=== PATIENT | female | born 1970 | race Two or more races ===

== ENCOUNTER 2020-05-18 10:16 | Outpatient (REF) | payer OTHER, SELFPAY ==
--- NOTE | 2020-05-18 | MM_ITS ---
EXAMINATION: MM SCREENING DIGITAL BREAST TOMOSYNTHESIS, BILATERAL CLINICAL INFORMATION: Screening. Asymptomatic. The lifetime risk of breast cancer based on the Tyrer-Cuzick Model is 6%. COMPARISON: Mammography: 03/13/2019, 03/12/2018, 04/29/2017 TECHNIQUE: Digital breast tomosynthesis is performed in both the craniocaudal and mediolateral oblique views along with computer-aided detection (CAD). Synthesized 2D images are generated from the tomosynthesis. Additional bilateral exaggerated CC views are provided. FINDINGS: There are scattered areas of fibroglandular density (ACR BI-RADS breast composition Category b). There are no significant masses, abnormal calcifications, or other abnormalities. No significant changes from prior studies. MM/MM tomosynthesis screening BI IMPRESSION: No mammographic evidence of malignancy. ASSESSMENT: BI-RADS 1: Negative RECOMMENDATION: Routine annual mammography screening. This patient's information was entered into a reminder system with a target due date for their next mammogram.
== END 2020-05-18 10:17 | disposition home or self-care (01) ==
LOC: HO.MAMMO 10:16
PROVIDERS: PCP Internal Medicine; Visit Provider Internal Medicine
DX: Z12.31 Encounter for screening mammogram for malignant neoplasm of breast (principal)
CPT/HCPCS: 77063; 77067

== ENCOUNTER 2020-06-24 08:36 | Outpatient (REF) | payer OTHER, SELFPAY ==
[2020-06-25 11:28] LABS: BV Int Neg Control Negative (Negative); BV Int Pos Control Positive (Positive)
[2020-06-25 11:42] LABS: C. trachomatis RNA TMA NOT DETECTED (NOT DETECTED); N. gonorrhoeae RNA TMA NOT DETECTED (NOT DETECTED)
== END 2020-06-24 08:37 | disposition home or self-care (01) ==
LOC: HO.LAB 08:36
PROVIDERS: PCP Internal Medicine; Visit Provider Obstetrics & Gynecology
DX: Z01.419 Encounter for gynecological examination (general) (routine) without abnormal findings (principal); N76.0 Acute vaginitis; B96.89 Other specified bacterial agents as the cause of diseases classified elsewhere
CPT/HCPCS: 87480; 87491; 87510; 87591; 87660

== ENCOUNTER 2020-07-05 10:41 | Outpatient (REF) | payer OTHER, SELFPAY ==
--- NOTE | ~2020-07-05 | US_ITS ---
EXAMINATION: US PELVIS ULTRASOUND CLINICAL INFORMATION: R10.2 - Pelvic and perineal pain. Right lower quadrant pain. History fibroid. Age 49. LMP 06/15/2020. COMPARISON: Pelvic ultrasound 09/10/2018 TECHNIQUE: Ultrasound of the pelvis is performed using both transabdominal and transvaginal transducers along with Doppler. Transvaginal imaging is performed due to inadequate visualization transabdominally. FINDINGS: Uterus: The uterus is retroverted and retroflexed and measures 10.0 x 7.5 x 8.4 cm. Volume 331. The double wall endometrial thickness is normal at 8 mm. There is an exophytic intramural subserous fibroid posterior uterus measuring 5.0 x 4.9 x 3.8 cm. This is increased in size from prior study measurements 3.5 x 3.2 x 3.2 cm. There is no new fibroid. Adnexa: Right ovary measures 3.1 x 2.0 x 2.9 cm. Volume 9.4 mL. There is a dominant follicle within the right ovary measuring 2.2 x 1.7 x 1.5 cm. The left ovary is not visualized. There is no pelvic ascites. US/US pelvic complete IMPRESSION: 1. Uterus: Posterior fibroid 5.0 cm, increased from prior measurement 3.5 cm (09/10/2018). 2. Adnexa: Left ovary not visualized. Unremarkable right ovary. No pelvic ascites.
--- NOTE | ~2020-07-05 | US_ITS ---
EXAMINATION: US PELVIS ULTRASOUND CLINICAL INFORMATION: R10.2 - Pelvic and perineal pain. Right lower quadrant pain. History fibroid. Age 49. LMP 06/15/2020. COMPARISON: Pelvic ultrasound 09/10/2018 TECHNIQUE: Ultrasound of the pelvis is performed using both transabdominal and transvaginal transducers along with Doppler. Transvaginal imaging is performed due to inadequate visualization transabdominally. FINDINGS: Uterus: The uterus is retroverted and retroflexed and measures 10.0 x 7.5 x 8.4 cm. Volume 331. The double wall endometrial thickness is normal at 8 mm. There is an exophytic intramural subserous fibroid posterior uterus measuring 5.0 x 4.9 x 3.8 cm. This is increased in size from prior study measurements 3.5 x 3.2 x 3.2 cm. There is no new fibroid. Adnexa: Right ovary measures 3.1 x 2.0 x 2.9 cm. Volume 9.4 mL. There is a dominant follicle within the right ovary measuring 2.2 x 1.7 x 1.5 cm. The left ovary is not visualized. There is no pelvic ascites. US/US transvaginal IMPRESSION: 1. Uterus: Posterior fibroid 5.0 cm, increased from prior measurement 3.5 cm (09/10/2018). 2. Adnexa: Left ovary not visualized. Unremarkable right ovary. No pelvic ascites.
== END 2020-07-05 10:42 | disposition home or self-care (01) ==
LOC: HO.US 10:41
PROVIDERS: PCP Internal Medicine; Visit Provider Obstetrics & Gynecology
DX: R10.2 Pelvic and perineal pain (principal)
CPT/HCPCS: 76830; 76856

== ENCOUNTER → 2020-07-08 11:31 | Outpatient (BNVA) | payer OTHER, SELFPAY | PROVIDERS: PCP Internal Medicine; Visit Provider Obstetrics & Gynecology ==

== ENCOUNTER → 2020-08-22 13:16 | Outpatient (BNVA) | payer OTHER, SELFPAY | PROVIDERS: PCP Internal Medicine; Visit Provider Nurse Practitioner Family ==

== ENCOUNTER → 2020-09-06 14:37 | Outpatient (BNVA) | payer OTHER, SELFPAY | PROVIDERS: PCP Internal Medicine; Visit Provider Nurse Practitioner Family ==

== ENCOUNTER 2020-10-28 08:03 | Outpatient (REF) | payer OTHER, SELFPAY ==
[2020-10-28 10:07] LABS: Hemoglobin 12.2 g/dl (12.0-16.0); Mean Corpuscular HGB Conc 31.3 g/dl (31.0-35.0); Mean Corpuscular Hemoglobin 29.6 pg (27.0-33.0); Mean Corpuscular Volume 94.7 fL (80-98); Mean Platelet Volume 11.3 fL (9.4-12.3); Platelet Count 136 X10*3/uL (160-400); Red Blood Count 4.12 X10*6/uL (4.20-5.50); Red Cell Distribution Width 12.9 % (11.0-16.0); White Blood Count 6.3 X10*3/uL (4.8-10.8)
[2020-10-28 10:15] LABS: Alanine Aminotransferase 26 U/L (0-31); Albumin Level 4.4 g/dL (3.5-5.0); Alkaline Phosphatase 68 U/L (39-117); Anion Gap 12 (12-20); Aspartate Amino Transferase 26 U/L (5-31); Bilirubin Total 1.1 mg/dL (0.0-1.0); Blood Urea Nitrogen 18 mg/dL (9-16); Calcium 9.5 mg/dL (8.4-10.2); Carbon Dioxide 30 mmol/L (22-29); Chloride 104 mmol/L (96-108); Estimated Glomerular Filt Rate > 60; Glucose Random 84 mg/dL (60-115); Potassium 4.5 mmol/L (3.3-5.1); Sodium 141 mmol/L (135-145); Total Protein 7.3 g/dL (6.5-8.0)
[2020-10-28 10:29] LABS: TSH reflex Free T4 1.63 uIU/mL (0.32-4.0)
[2020-10-28 14:23] LABS: CT PCR NOT DETECTED (Not Detect.); NG PCR NOT DETECTED (Not Detect.)
== END 2020-10-28 08:04 | disposition home or self-care (01) ==
LOC: HO.LAB 08:03
PROVIDERS: Obstetrics & Gynecology; PCP Internal Medicine; Visit Provider Nurse Practitioner Family
DX: K59.00 Constipation, unspecified (principal); B37.3 Candidiasis of vulva and vagina; R14.0 Abdominal distension (gaseous); Z12.11 Encounter for screening for malignant neoplasm of colon
CPT/HCPCS: 36415; 80053; 84443; 85027; 87491; 87591

== ENCOUNTER 2021-05-09 11:52 | Day surgery (SDC) | payer OTHER, SELFPAY ==
--- NOTE | 2021-05-08 10:18 | HO.ANESPROP2 ---
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 Sexual orientation: Straight/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 Gender identity: Female Meds Allergies Allergy/AdvReac Type Severity Reaction Status Date / Time aspirin [Aspirin] Allergy Mild UPSET Verified 07/13/21 10:12 STOMACH, RASH Home Medications Medication Instructions Recorded Confirmed Last Taken Type atorvastatin 10 mg tablet 10 mg PO DAILY 06/24/20 Unknown History ibuprofen 600 mg tablet 600 mg PO TID 08/22/20 05/05/21 History simethicone 80 mg chewable tablet mg PO 10/28/20 Unknown History albuterol sulfate 90 mcg/actuation INHALATION 06/01/21 Unknown History aerosol inhaler mometasone-formoterol HFA 100 INHALATION 06/01/21 Unknown History mcg-5 mcg/actuation aerosol inhaler (Dulera) magnesium oxide 400 mg PO DAILY 07/13/21 Unknown History Exam Exam Date and Time: May 08, 2021 1018 Assessment and Plan Assessment Anesthesia Assessment: Chart Reviewed Documented by User: Mook Colon MD 08/30/21 16:33 [facility] Past Medical History Medical History Adopted Asthma History of ganglion cyst Functional capacity: independent ambulation Family History Family history of problems with anesthesia: No Surgical History Surgical History History of surgical removal of ganglion cyst Hx of colonoscopy History of Problems with Anesthesia: No Social History Social History Household Members: Children Alcohol intake: current Alcohol intake frequency: does not drink Patient Tobacco Use Status: Never used Tobacco Current occupational status: employed 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 Sexual orientation: Straight/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 Gender identity: Female Meds Allergies Allergy/AdvReac Type Severity Reaction Status Date / Time aspirin [Aspirin] Allergy Mild UPSET Verified 07/13/21 10:12 STOMACH, RASH Home Medications Medication Instructions Recorded Confirmed Last Taken Type atorvastatin 10 mg tablet 10 mg PO DAILY 06/24/20 Unknown History ibuprofen 600 mg tablet 600 mg PO TID 08/22/20 05/05/21 History simethicone 80 mg chewable tablet mg PO 10/28/20 Unknown History albuterol sulfate 90 mcg/actuation INHALATION 06/01/21 Unknown History aerosol inhaler mometasone-formoterol HFA 100 INHALATION 06/01/21 Unknown History mcg-5 mcg/actuation aerosol inhaler (Dulera) magnesium oxide 400 mg PO DAILY 07/13/21 Unknown History Exam Airway Mallampati Class: I TM Dist: >3cm Neck ROM: Limited Loose/Missing/Broken Teeth: Yes (Upper bridge , chipped front ) Heart: S1,S2 Lungs: b/l breath sounds Assessment and Plan Assessment Anesthesia Assessment: Anesthesia Plan Discussed Final Anesthetic Review Family History of Problems with Anesthesia: No History of Problems with Anesthesia: No NPO: Yes ASA Class: II Final Preanesthetic Review: Meds/Allgs Chart Reviewed, Consent Obtained/Reviewed and Anes Risks/Benef Reviewed Patient Risk: Intermediate Procedure Risk: Intermediate Anesthetic Plan Anesthetic Plan: MAC: Disposition: Standard PACU
[2021-05-09 12:05] VITALS: BMI 21.9
[2021-05-09 12:09] VITALS: BP 115/61; PULSE 91; RESP 16; TEMP 37.1; O2SAT 99
[2021-05-09] MEDS: Lactated Ringers 1,000 ML 100 ML IVCONT (12:27)
--- NOTE | 2021-05-09 12:47 | MHC.SHP ---
Pre-Procedural Eval Section A Date of Service: 05/09/21 Section B Chief Complaint: Screening Details of Present Illness: Colon cancer screening, constipation Relevant Family History (Specify if Yes): No Relevant Social History: None Present Medications: see Short Stay Collaborative assessment Medical History: Significant History (asthma) History of Previous Operations: Relevant previous surgery/procedure and date(s) (Hx of removal of ganglion cyst) Allergies: Allergies Allergy/AdvReac Type Severity Reaction Status Date / Time aspirin [Aspirin] Allergy Mild UPSET Verified 05/09/21 11:59 STOMACH, RASH Review of Systems Sugical H&P ROS: Negative: Constitution, Cardiovascular and Respiratory and Yes, Specify: Gastrointestinal (Chronic constipation) Exam Surgical H&P Exam: Normal: Heart, Normal: Lungs, Normal: Extremities and Normal: Abdomen Plan Diagnosis/Plan: Unchanged I have reviewed the history and physical and performed a pertinent physical examination on my patient. No changes have occurred unless specified.
--- NOTE | 2021-05-09 13:59 | P.BOP_ITS ---
Brief Operative Note Date of Service: 05/09/21 Pre-op diagnosis: Colon cancer screening, chronic constipation Post-op diagnosis: other (Colon polyps, diverticulosis, hemorrhoids) Procedure: COLONOSCOPY TILL CECUM WITH BIOPSIES Consent: Indications for the procedure and potential complications of bleeding, perforation, reaction to medications and missed diagnosis were discussed with the patient and informed consent was obtained. Instrument: Olympus PCF H 190 L variable stiffness pediatric colonoscope Monitoring: Vital signs and clinical assessment, intermittent blood pressure monitoring, continuous EKG monitoring, Pulse oximetry and Carbon Dioxide monitoring were done throughout the procedure. Colon withdrawl time was 25 minutes. Procedure: The patient was placed in the left lateral decubitis position and pre-procedure medications were administered. After a digital rectal examination of the ano-rectum, the video colonoscope was inserted into the rectum and advanced through the colon to the cecum. The colonoscope was slowly withdrawn in a retrograde panoramic fashion and the colon mucosa was carefully examined including a retroflexed view of the rectum. Findings and interventions are described below. Procedure Difficulty: Colon was long and tortuous and there was some loop formation. LLQ pressure was applied to intubate the cecum Findings: Terminal Ileum: Not evaluated Cecum: Normal Ascending Colon: Normal Transverse Colon: Two 7-8 mm sessile polyps removed with a cold bx. Descending Colon: Moderate diverticulosis Sigmoid Colon: Moderate diverticulosis Rectum: Normal Ano-rectum: Moderate internal hemorrhoids Colon preparation: Excellent Impression and Post Procedure Diagnosis: Colonoscopy Findings: Two small polyps removed Moderate diverticulosis seen in the left colon Moderate hemorrhoids on retroflexed exam. Plan: Await pathology results Patient has an appointment on 05/23/21 in the [facility] with Karina Carlson FNP-BC. Repeat Colonoscopy interval based on path results - in 5 years if polyps are adenomatous and 10 years if polyps are hyperplastic. Above findings were reviewed with the patient and colon polyps and diverticulosis handouts were given in the discharge area Surgeon: Bradley Bills MD Anesthesia: MAC (Kaur San CRNA) Was an Inspector Hairspring Truing used for this Procedure?: Yes Inspector Hairspring Truing: Joanna Jang Estimated blood loss (mL): 0 Pathology: other (A. transverse colon polyps (2)) Condition: stable Disposition: PACU
[2021-05-09 14:44] VITALS: BP 95/45; PULSE 73; RESP 12; TEMP 36.2; O2SAT 99
[2021-05-09 14:59] VITALS: BP 111/69; PULSE 72; RESP 18; TEMP 36.2; O2SAT 100
== END 2021-05-09 15:48 | disposition home or self-care (01) ==
PROVIDERS: PCP Internal Medicine; Visit Provider Internal Medicine Gastroenterology
PROC: 0DJD8ZZ Inspection of Lower Intestinal Tract, Via Natural or Artificial Opening Endoscopic (ICD-10-PCS; CPT 45378; principal; 2021-05-09 12:50)
DX: Z12.11 Encounter for screening for malignant neoplasm of colon (principal); K63.5 Polyp of colon; K57.30 Diverticulosis of large intestine without perforation or abscess without bleeding; K64.8 Other hemorrhoids; K59.09 Other constipation; J45.909 Unspecified asthma, uncomplicated; Z88.8 Allergy status to other drugs, medicaments and biological substances; Z79.899 Other long term (current) drug therapy
CPT/HCPCS: 45380; 88305; J2250

== ENCOUNTER 2021-06-01 15:36 | Outpatient (REF) | payer OTHER, SELFPAY ==
--- NOTE | ~2021-06-01 | XR_ITS ---
EXAMINATION: XR CHEST CLINICAL INFORMATION: Cough COMPARISON: September 2015 TECHNIQUE: 2 views of the chest were obtained. FINDINGS: No significant abnormality is noted involving the heart, lungs, mediastinum, bony thorax or soft tissues. XR/XR chest 2V IMPRESSION: Unremarkable examination.
== END 2021-06-01 15:37 | disposition home or self-care (01) ==
LOC: HO.HMGCX 15:36
PROVIDERS: Visit Provider Physician Assistant Medical
DX: R05.9 Cough, unspecified (principal)
CPT/HCPCS: 71046

== ENCOUNTER → 2021-07-05 15:57 | Outpatient (BNVA) | payer OTHER, SELFPAY | PROVIDERS: PCP Internal Medicine; Referring Provider Internal Medicine; Visit Provider Nurse Practitioner Family ==

== ENCOUNTER 2021-07-06 08:10 | Outpatient (REF) | payer OTHER, SELFPAY ==
[2021-07-06 08:48] LABS: Hematocrit 40.3 % (37.0-47.0); Mean Corpuscular HGB Conc 32.3 g/dl (31.0-35.0); Mean Corpuscular Volume 93.1 fL (80.0-98.0); Platelet Count 145 X10*3/uL (160-400); Red Blood Count 4.33 X10*6/uL (4.20-5.50); Red Cell Distribution Width 13.2 % (11.0-16.0); White Blood Count 5.5 X10*3/uL (4.8-10.8)
[2021-07-06 09:52] LABS: TSH reflex Free T4 1.67 uIU/mL (0.32-4.0)
[2021-07-11 11:51] LABS: Vitamin D 25-OH, D2 <4 ng/mL; Vitamin D 25-OH, D3 43 ng/mL; Vitamin D 25-OH, Total 43 ng/mL (30-100)
== END 2021-07-06 08:11 | disposition home or self-care (01) ==
LOC: HO.LAB 08:10
PROVIDERS: Visit Provider Nurse Practitioner Family
DX: E55.9 Vitamin D deficiency, unspecified (principal); Z12.11 Encounter for screening for malignant neoplasm of colon
CPT/HCPCS: 36415; 82306; 84443; 85027

== ENCOUNTER 2021-07-13 10:30 | Outpatient (REF) | payer OTHER, SELFPAY ==
[2021-07-19 21:07] LABS: HPV mRNA E6/E7 rflx Not Detected (Not Detected)
== END 2021-07-13 10:31 | disposition home or self-care (01) ==
LOC: HO.LAB 10:30
PROVIDERS: Visit Provider Advanced Practice Midwife
DX: Z01.419 Encounter for gynecological examination (general) (routine) without abnormal findings (principal); Z11.51 Encounter for screening for human papillomavirus (HPV)
CPT/HCPCS: 87624; 88142

== ENCOUNTER 2021-07-13 11:18 | Outpatient (REF) | payer OTHER, SELFPAY ==
--- NOTE | ~2021-07-13 | MM_ITS ---
EXAMINATION: MM SCREENING DIGITAL BREAST TOMOSYNTHESIS, BILATERAL CLINICAL INFORMATION: Screening. Asymptomatic. The lifetime risk of breast cancer based on the Tyrer-Cuzick Model is 7.9%. COMPARISON: Mammography: May 18, 2020 and studies dating back to May 03, 2014 TECHNIQUE: Digital breast tomosynthesis is performed in both the craniocaudal and mediolateral oblique views along with computer-aided detection (CAD). Synthesized 2D images are generated from the tomosynthesis. FINDINGS: There are scattered areas of fibroglandular density (ACR BI-RADS breast composition Category b). There are no significant masses, abnormal calcifications, or other abnormalities. MM/MM tomosynthesis screening BI IMPRESSION: There are no significant changes from prior study. ASSESSMENT: BI-RADS 1: Negative RECOMMENDATION: Routine annual mammography screening. This patient's information was entered into a reminder system with a target due date for their next mammogram.
== END 2021-07-13 11:19 | disposition home or self-care (01) ==
LOC: HO.MAMMO 11:18
PROVIDERS: PCP Internal Medicine; Visit Provider Internal Medicine
DX: Z12.31 Encounter for screening mammogram for malignant neoplasm of breast (principal)
CPT/HCPCS: 77063; 77067

== ENCOUNTER 2021-10-14 20:59 | Emergency (ER) | payer OTHER, SELFPAY ==
[2021-10-14 21:11] VITALS: BP 150/86; BP 152/87; PULSE 63; PULSE 78; RESP 16; TEMP 36.5; O2SAT 100; BMI 21.8
[2021-10-14 21:33] VITALS: BP 145/79; PULSE 77; RESP 16; TEMP 36.9; O2SAT 99
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
[2021-10-14] MEDS: Lidocaine 4 % Patch ADH..PATCH 1 PATCH TRANSDERMA (21:40)
[2021-10-14] MEDS: Ibuprofen 400 MG TABLET PO (21:40)
[2021-10-14] MEDS: Acetaminophen 325 MG TABLET 975 MG PO (21:41)
== END 2021-10-14 23:02 | disposition home or self-care (01) ==
LOC: HO.ED 22:02
PROVIDERS: Emergency Provider Student in an Organized Health Care Education/Training Program; PCP Internal Medicine
DX: S49.92XA Unspecified injury of left shoulder and upper arm, initial encounter (principal); V43.52XA Car driver injured in collision with other type car in traffic accident, initial encounter; Y93.9 Activity, unspecified; Y92.410 Unspecified street and highway as the place of occurrence of the external cause; Y99.9 Unspecified external cause status; Z79.899 Other long term (current) drug therapy
CPT/HCPCS: 99283; 99284

== ENCOUNTER → 2022-06-27 12:09 | Outpatient (BNVA) | payer OTHER, SELFPAY | PROVIDERS: PCP Internal Medicine; Visit Provider Nurse Practitioner Family | DX: Z13.89 Encounter for screening for other disorder (principal) ==

== ENCOUNTER 2022-07-05 06:37 | Day surgery (SDC) | payer OTHER, SELFPAY ==
--- NOTE | 2022-07-05 06:40 | PC.NURSE ---
called patient and left message pt no show
[2022-07-05 06:42] VITALS: PULSE 71; RESP 16; TEMP 36.3; O2SAT 98; BMI 22.1
--- NOTE | 2022-07-05 06:42 | PC.NURSE ---
pt called be here in 5 mins
[2022-07-05] MEDS: Lactated Ringers 1,000 ML 50 ML IVCONT (07:05)
--- NOTE | 2022-07-05 07:31 | MHC.SHP ---
Pre-Procedural Eval Section A Date of Service: 07/05/22 The History & Physical has been completed within 30 days and I have reviewed it.: Yes Section B Chief Complaint: Abd pain, N,V Details of Present Illness: Here for EGD. Pt also reports being told she has inflammation of the stomach based on a CT scan but I am not able to see this in the chart. Relevant Family History (Specify if Yes): No Present Medications: see Short Stay Collaborative assessment Medical History: No relevant PMH History of Previous Operations: No relevant previous surgery Allergies: Allergies Allergy/AdvReac Type Severity Reaction Status Date / Time aspirin [Aspirin] Allergy Mild UPSET Verified 06/27/22 12:14 STOMACH, RASH Review of Systems Review of Systems Comment: 10 point ROS negative except as above Exam Exam Comment: Gen appear: No acute distress HEENT: no icterus Chest: No overt resp distress Abd: soft, nontender, nondistended Psych: Stable affect, answering questions appropriately Neuro: A/Ox3 noted to move all extremities spontaneously Ext: no peripheral edema Plan Diagnosis/Plan: Unchanged I have reviewed the history and physical and performed a pertinent physical examination on my patient. No changes have occurred unless specified. Time Spent With Patient Time: Total time managing care of this patient today ____ minutes.
--- NOTE | 2022-07-05 07:54 | P.OP_ITS ---
Operative Note Operative Note Date of Service: 07/05/22 Narrative: Procedure: Esophagogastroduodenoscopy Endoscopist: Kathy Musa MD Indication: Abd pain, nausea, bloating Anesthesia Provider: Dr Corin Lauren Anesthesia Type: MAC ?? EGD Procedure:?? The procedure, indications, preparation and potential complications were reviewed with the patient, who indicated understanding and gave written informed consent to proceed. A physical exam was performed. The endoscope was introduced through the mouth, and advanced to the third part of duodenum. The mucosa was carefully examined on slow withdrawal of the endoscope. The patient tolerated the procedure well. There were no immediate complications.? ? EGD Findings:? * Esophagus:? Normal mucosa noted in the entire esophagus. The Z line was at 37 cm and noted to be irregular with columnar mucosa extending up to 36 cm. Cold forceps biopsies were taken from lower esophagus to r/o Montgomery's esophagus. Middle esophagus forceps biopsies were obtained to rule out eosinophilic esophagitis. * Stomach:? Multiple polyps were noted in the fundus and body. Larger few polyps measuring 8-10 mm were removed using cold snare, collected with rescue net and sent for histology. Random cold forceps gastric biopsies were taken to rule out H Pylori infection. * Duodenum:? Normal mucosa was noted in the whole of the examined duodenum. Biopsies were taken from duodenal bulb and second portion of the duodenum to rule out celiac sprue. ? EGD Impressions:? * Irregular Z line (biopsy) * Gastric polyps (biopsy) * Normal duodenum (biopsy) ?? Recommendations:?? * Follow biopsy results. Our office will call or send a letter with results within 7-10 days. * If H pylori +, patient will be prescribed eradication therapy followed by test of cure. * Avoid NSAIDs. Above has been reviewed with the patient. Relevant educational hand outs were provided at discharge. ?
[2022-07-05 08:03] VITALS: BP 123/67; PULSE 60; RESP 17; TEMP 36.1; O2SAT 99
[2022-07-05 08:18] VITALS: BP 134/75; PULSE 57; RESP 18; O2SAT 100
[2022-07-05 08:33] VITALS: BP 134/73; PULSE 71; RESP 18; TEMP 36.6; O2SAT 100
--- NOTE | 2022-07-05 08:46 | HO.ANESPROP2 ---
COUNT INCLUDES THE [facility] Active Problems Active Problems: All Active Problems (Updated 10/15/21 @ 00:02 by Nacho Barnhart) Encounter for annual routine gynecological examination (Acute) Pneumonia due to COVID-19 virus (Acute) Cough (Acute) Past Medical History Medical History Adopted Asthma History of ganglion cyst Family History Family history of problems with anesthesia: No Surgical History Surgical History History of surgical removal of ganglion cyst Hx of colonoscopy History of Problems with Anesthesia: No Social History Social History Household Members: Children Alcohol intake: never Patient Tobacco Use Status: Never used Tobacco Are you DNR?: No Advance Directives: No Advance Directives Information Provided: Yes Recently lost weight without trying: No Nutrition Risks: No Nutritional Risk Current occupational status: employed 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 Sexual orientation: Straight/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 Gender identity: Female Meds Allergies Allergy/AdvReac Type Severity Reaction Status Date / Time aspirin [Aspirin] Allergy Mild UPSET Verified 06/27/22 12:14 STOMACH, RASH Active Medications: Current Medications Lactated Ringer's (Lr) 1,000 mls @ 50 mls/hr IVCONT .Q20H MELY Last Infusion: 07/05/22 08:19 Dose: Infused Home Medications Medication Instructions Recorded Confirmed Last Taken Type atorvastatin 10 mg tablet 10 mg PO DAILY 06/24/20 07/02/22 History albuterol sulfate 90 mcg/actuation inhalation 06/01/21 06/20/22 History aerosol inhaler Exam Exam Date and Time: July 05, 2022 0846 Height,Weight and Vital Signs: Height 5 ft 4 in Weight 58.513 kg Last Vital Signs Temp 97.9 F 07/05/22 08:33 Pulse 71 07/05/22 08:33 Resp 18 07/05/22 08:33 BP 134/73 07/05/22 08:33 Pulse Ox 100 07/05/22 08:33 O2 Del Method 07/05/22 08:33 O2 Flow Rate 3 07/05/22 08:03 Airway Mallampati Class: II TM Dist: >3cm Neck ROM: Full Denture: Upper Partial: Upper Heart: rr Lungs: cta Assessment and Plan Final Anesthetic Review Family History of Problems with Anesthesia: No History of Problems with Anesthesia: No ASA Class: II Final Preanesthetic Review: No Changes in Pt Med Stat, Meds/Allgs Chart Reviewed, Consent Obtained/Reviewed and Anes Risks/Benef Reviewed Patient Risk: Low Procedure Risk: Low Anesthetic Plan Anesthetic Plan: MAC: Disposition: Standard PACU
[2022-07-05 08:48] VITALS: BP 134/73; PULSE 68; RESP 18; TEMP 36.6; O2SAT 100
--- NOTE | 2022-07-05 09:40 | P.CONAN_ITS ---
HPI - Anesthesia Eval Consult details Narrative: egd for abdominal pain PMFSH Active Problems Active Problems: All Active Problems (Updated 10/15/21 @ 00:02 by Nacho Barnhart) Encounter for annual routine gynecological examination (Acute) Pneumonia due to COVID-19 virus (Acute) Cough (Acute) Past Medical History Medical History Adopted Asthma History of ganglion cyst Family History Family history of problems with anesthesia: No Surgical History Surgical History History of surgical removal of ganglion cyst Hx of colonoscopy History of Problems with Anesthesia: No Social History Social History Household Members: Children Alcohol intake: never Patient Tobacco Use Status: Never used Tobacco Current occupational status: employed 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 Sexual orientation: Straight/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 Gender identity: Female Meds Allergies Allergy/AdvReac Type Severity Reaction Status Date / Time aspirin [Aspirin] Allergy Mild UPSET Verified 06/27/22 12:14 STOMACH, RASH Home Medications Medication Instructions Recorded Confirmed Last Taken Type atorvastatin 10 mg tablet 10 mg PO DAILY 06/24/20 07/02/22 History albuterol sulfate 90 mcg/actuation inhalation 06/01/21 06/20/22 History aerosol inhaler Exam Exam Date and Time: July 05, 2022 0940 Height,Weight and Vital Signs: Height 5 ft 4 in Weight 58.513 kg Last Vital Signs Temp 97.9 F 07/05/22 08:48 Pulse 68 07/05/22 08:48 Resp 18 07/05/22 08:48 BP 134/73 07/05/22 08:48 Pulse Ox 100 07/05/22 08:48 O2 Del Method 07/05/22 08:48 O2 Flow Rate 3 07/05/22 08:03 Assessment and Plan Final Anesthetic Review Family History of Problems with Anesthesia: No History of Problems with Anesthesia: No
== END 2022-07-05 09:16 | disposition home or self-care (01) ==
PROVIDERS: PCP Internal Medicine; Visit Provider Internal Medicine
PROC: 0DJ08ZZ Inspection of Upper Intestinal Tract, Via Natural or Artificial Opening Endoscopic (ICD-10-PCS; CPT 43235; principal; 2022-07-05 07:30)
DX: K29.50 Unspecified chronic gastritis without bleeding (principal); K31.7 Polyp of stomach and duodenum; K22.89 Other specified disease of esophagus; J45.909 Unspecified asthma, uncomplicated; Z79.899 Other long term (current) drug therapy; Z88.8 Allergy status to other drugs, medicaments and biological substances
CPT/HCPCS: 43251; 43239; 88305; 88342

== ENCOUNTER 2022-07-16 15:57 | Outpatient (REF) | payer OTHER, SELFPAY ==
--- NOTE | ~2022-07-16 | MM_ITS ---
EXAMINATION: MM SCREENING DIGITAL BREAST TOMOSYNTHESIS, BILATERAL CLINICAL INFORMATION: Screening. Asymptomatic. The lifetime risk of breast cancer based on the Tyrer-Cuzick Model is 6.6%. COMPARISON: Mammography: July 13, 2021 and studies dating back to June 03, 2015 TECHNIQUE: Digital breast tomosynthesis is performed in both the craniocaudal and mediolateral oblique views along with computer-aided detection (CAD). Synthesized 2D images are generated from the tomosynthesis. FINDINGS: There are scattered areas of fibroglandular density (ACR BI-RADS breast composition Category b). There are no significant masses, abnormal calcifications, or other abnormalities. MM/MM tomosynthesis screening BI IMPRESSION: No significant changes from prior exam. ASSESSMENT: BI-RADS 1: Negative RECOMMENDATION: Routine annual mammography screening. This patient's information was entered into a reminder system with a target due date for their next mammogram.
== END 2022-07-16 15:58 | disposition home or self-care (01) ==
LOC: HO.MAMMO 15:57
PROVIDERS: PCP Internal Medicine; Visit Provider Internal Medicine
DX: Z12.31 Encounter for screening mammogram for malignant neoplasm of breast (principal)
CPT/HCPCS: 77063; 77067

== ENCOUNTER → 2022-07-23 08:30 | Outpatient (BNVA) | payer OTHER, SELFPAY | PROVIDERS: PCP Internal Medicine; Visit Provider Nurse Practitioner Family | DX: Z13.89 Encounter for screening for other disorder (principal) ==

== ENCOUNTER 2022-07-25 08:17 | Outpatient (REF) | payer OTHER, SELFPAY ==
[2022-07-25 09:14] LABS: Alanine Aminotransferase 23 U/L (0-31); Albumin Level 4.4 g/dL (3.5-5.0); Alkaline Phosphatase 65 U/L (39-117); Aspartate Amino Transferase 24 U/L (5-31); Bilirubin Direct 0.4 mg/dL (0.0-0.5); Bilirubin Total 1.5 mg/dL (0.0-1.0); Lipase 105 U/L (8-78); Total Protein 7.2 g/dL (6.5-8.0)
[2022-07-25 09:39] LABS: Folate 9.9 ng/mL (> or = 4.0); TSH reflex Free T4 0.96 uIU/mL (0.32-4.0); Vitamin B12 1391 pg/mL (200-900)
[2022-07-30 12:20] LABS: Transglutaminase IgA <1.0 U/mL
[2022-08-01 23:23] LABS: Vitamin D 25-OH, D2 <4 ng/mL; Vitamin D 25-OH, D3 29 ng/mL; Vitamin D 25-OH, Total 29 ng/mL (30-100)
== END 2022-07-25 08:18 | disposition home or self-care (01) ==
LOC: HO.LAB 08:17
PROVIDERS: PCP Internal Medicine; Visit Provider Nurse Practitioner Family
DX: R10.9 Unspecified abdominal pain (principal); K59.00 Constipation, unspecified; E55.9 Vitamin D deficiency, unspecified; R19.7 Diarrhea, unspecified
CPT/HCPCS: 36415; 80076; 82306; 82607; 82746; 83690; 84443; 86364

== ENCOUNTER 2022-07-26 08:17 | Outpatient (REF) | payer OTHER, SELFPAY ==
[2022-08-05 21:18] LABS: Pancreatic Elastase-1 >500 mcg/g
== END 2022-07-26 08:18 | disposition home or self-care (01) ==
LOC: HO.LNP 08:17
PROVIDERS: Visit Provider Nurse Practitioner Family
DX: R10.9 Unspecified abdominal pain (principal); K21.9 Gastro-esophageal reflux disease without esophagitis
CPT/HCPCS: 82656; 87338

== ENCOUNTER 2022-08-13 09:34 | Outpatient (REF) | payer OTHER, SELFPAY ==
[2022-08-13 13:14] LABS: Syphilis Screen Nonreactive (Nonreactive)
[2022-08-13 14:04] LABS: CT PCR NOT DETECTED (Not Detect.); NG PCR NOT DETECTED (Not Detect.)
[2022-08-14 11:16] LABS: BV Int Neg Control Negative (Negative); BV Int Pos Control Positive (Positive)
[2022-08-15 04:37] LABS: HBc Num1 0.06 S/CO (0.00-0.79); HIV AB/AG Nonreactive (Nonreactive); HIV Num 1 0.07 S/CO (0.00-0.99); Hepatitis B Core Antibody Nonreactive (Nonreactive); ~HepC Num1 0.12 S/CO (0.00-0.79); ~Hepatitis C Antibody Nonreactive (Nonreactive)
== END 2022-08-13 09:35 | disposition home or self-care (01) ==
LOC: HO.LAB 09:34
PROVIDERS: PCP Internal Medicine; Visit Provider Advanced Practice Midwife
DX: Z01.419 Encounter for gynecological examination (general) (routine) without abnormal findings (principal); Z20.2 Contact with and (suspected) exposure to infections with a predominantly sexual mode of transmission; N90.89 Other specified noninflammatory disorders of vulva and perineum; R30.0 Dysuria; R23.2 Flushing
CPT/HCPCS: 0353U; 36415; 86704; 86780; 86803; 87389; 87480; 87510; 87660

== ENCOUNTER → 2022-08-24 13:57 | Outpatient (BNVA) | payer OTHER, SELFPAY | PROVIDERS: PCP Internal Medicine; Visit Provider Nurse Practitioner Family | DX: Z13.89 Encounter for screening for other disorder (principal) ==

== ENCOUNTER 2022-11-07 08:20 | Outpatient (REF) | payer OTHER, SELFPAY ==
[2022-11-07 10:14] LABS: Estimated Average Glucose 108 mg/dL; Hemoglobin A1c % 5.4 %
[2022-11-07 11:36] LABS: C Reactive Protein < 0.10 mg/dL (< or = 0.50); Gamma Glutamyl Transpeptidase 26 U/L (7-33); Lipase 43 U/L (8-78)
== END 2022-11-07 08:21 | disposition home or self-care (01) ==
LOC: HO.LAB 08:20
PROVIDERS: PCP Internal Medicine; Visit Provider Nurse Practitioner Family
DX: R10.11 Right upper quadrant pain (principal); K58.1 Irritable bowel syndrome with constipation; R74.8 Abnormal levels of other serum enzymes; E11.9 Type 2 diabetes mellitus without complications; K58.9 Irritable bowel syndrome, unspecified; K21.9 Gastro-esophageal reflux disease without esophagitis
CPT/HCPCS: 36415; 82977; 83036; 83690; 86140

== ENCOUNTER 2022-11-16 10:00 | Outpatient (REF) | payer OTHER, SELFPAY ==
--- NOTE | ~2022-11-16 | US_ITS ---
EXAMINATION: US ABDOMEN COMPLETE CLINICAL INFORMATION: Abdominal pain. COMPARISON: Previous CT of the abdomen and pelvis March 2014 TECHNIQUE: Real-time imaging of the abdominal viscera. FINDINGS: PANCREAS: Normal. ABDOMINAL AORTA: The proximal, mid, and distal segments are normal in caliber. INFERIOR VENA CAVA: Visualized portions are normal. LIVER: Normal. The liver is normal in size. The liver contour is normal. Parenchymal echogenicity is normal. No focal hepatic lesion. There is no intrahepatic biliary duct dilatation seen. GALLBLADDER: The gallbladder is normal in size. No gallstones. There is a small amount of sludge in the gallbladder. Gallbladder wall does not appear thickened. COMMON BILE DUCT: Normal in caliber measuring 0.4 cm in diameter. RIGHT KIDNEY: Normal. No hydronephrosis. No renal calculi or focal parenchymal lesions. The kidney measures 10.5 cm in maximum dimension. LEFT KIDNEY: Normal. No hydronephrosis. No renal calculi or focal parenchymal lesions. The kidney measures 10 cm in maximum dimension. SPLEEN: Normal. The spleen measures 10 cm in maximum dimension. FREE FLUID: None. US/US abdomen complete IMPRESSION: Unremarkable exam. Small amount of sludge in the gallbladder. No gallstone seen.
== END 2022-11-16 10:01 | disposition home or self-care (01) ==
LOC: HO.HMGCX 10:00
PROVIDERS: PCP Internal Medicine; Visit Provider Nurse Practitioner Family
DX: R10.9 Unspecified abdominal pain (principal)
CPT/HCPCS: 76700

== ENCOUNTER 2023-01-28 08:01 | Outpatient (AMB) | payer OTHER, SELFPAY ==
--- NOTE | 2023-01-28 08:14 | MHC.OFFVIS ---
Intake Vital Signs 01/28/23 08:15 Height 5 ft 4 in Weight 124 lb 5.451 oz BMI 21.3 BP 119/71 Blood Pressure Location Rt brachial Position Sitting Pulse 73 Pulse Source Pulse Oximeter Intake Visit Reasons: 6 month follow up Intake Note: Pt presents to the office today for a 6 month follow up. She states some days are better than others. She states that if she doesn't have a bowel movement everyday she gets pain and bloating. She states overall she thinks the medications are working. Allergies aspirin [Aspirin] Allergy (Mild, Verified 01/28/23 08:16) UPSET STOMACH, RASH HPI 6 month follow up HPI Details LAST VISIT GERD (gastroesophageal reflux disease) Continue pantoprazole every morning. Continue avoiding dietary triggers and late night snacking. IBS (irritable bowel syndrome) Continue Linzess. Patient was also encouraged to stay away food that could be triggering her symptoms. Low FODMAP diet Constipation Continue Linzess 145 mcg daily. Patient was also encouraged to drink plenty fluids and increase activity to promote bowel motility. Patient does report that she is walking daily and doing other forms of exercise staying active. Postprandial abdominal pain in right upper quadrant Occasional postprandial abdominal pain in the right upper quadrant and epigastric discomfort. It has history of pancreatitis in the past will repeat blood work today will also order abdominal ultrasound to rule out cholelithiasis, cholecystitis, biliary colic, pancreatitis. Will check CRP to rule out inflammatory processes. Patient has an appointment with me in January, she will call me sooner if she will have any GI concerning issues. Patient is agreeable to this plan and verbalizes understanding of instructions. She was given the opportunity to ask questions all questions answered. TODAY'S VISIT Patient is here today for follow-up. Patient reports that she is taking Linzess every day and reports to have good bowel movements, however occasionally she will be constipated. If no bowel movement for 1-2 days patient reports to have abdominal cramping. Patient feels abdominal fullness and gassy. Patient reports that she is following low FODMAP diet as much as she can. She admits to occasionally having food that could trigger her symptoms of abdominal cramping and bloating like chocolate donut or cheese. Patient tried to find lactose free she is. Overall patient states that she is avoiding lactose and as much as gluten as possible. Patient reports that she eats fish like salmon or tuna. For the most part patient states that she is feeling well. Lab results discussed with patient. Normal lipase. Patient had normal ultrasound except for mild slough seen in her gallbladder. 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 Sexual orientation: Straight/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 Gender identity: Female Review of Systems Const Denies weight gain and Denies weight loss ENT Reports no additional complaints, Denies dysphagia and Denies odynophagia Card Reports no additional complaints Resp Reports no additional complaints GI Denies abdominal pain, Denies belching, Denies melena, Denies bloating, Denies change in bowel habits, Denies dysphagia, Denies excessive flatus, Denies dyspepsia, Denies heartburn, Denies diarrhea, Denies loose stools, Denies nausea, Denies odynophagia and Denies vomiting Musc Reports no additional complaints Neuro Reports no additional complaints Psych Reports no additional complaints Endo Reports no additional complaints Physical Exam Vital Signs: BMI result Body Mass Index 21.3 Const General: healthy appearing, no acute distress and well developed Nutritional Appearance: well nourished Orientation/consciousness: patient oriented x3 HEENT Head: Yes normal to inspection, Yes normocephalic and Yes atraumatic Face and sinus: Yes normal facial exam Mouth: Normal oral and palatal mucosa present Throat: Yes posterior oropharynx normal, Yes tonsils normal and Yes uvula midline Eyes General: appearance normal, both eyes and all related structures Neck Neck: Yes normal visual inspection, Yes full ROM and Yes trachea midline Thyroid: Thyroid normal Resp Effort & Inspection: normal respiratory effort, able to speak in complete sentences, no tracheal deviation and symmetric chest movement Auscultation: clear to auscultation bilaterally Cardio Rate: regular rate Heart sounds: S1 normal heart sound present and S2 normal heart sound present GI Inspection: Yes normal to inspection and No distended Palpation (GI): Soft to palpation, not firm, nontender and No hepatosplenomegaly present Auscultation: normal bowel sounds General: Yes no CVA tenderness Back/Spine/Pelvis Back: no CVA tenderness Skin General skin exam: elasticity normal, turgor normal and dry skin Neuro General: patient oriented x3 Psych Appearance: grossly normal Mental Status: mental status grossly normal Speech and movement: Normal speech and movement present Assessment & Plan Assessment & Plan (1) GERD (gastroesophageal reflux disease): Code(s): K21.9 - Gastro-esophageal reflux disease without esophagitis Qualifiers: Esophagitis presence: without esophagitis Qualified Code(s): K21.9 - Gastro-esophageal reflux disease without esophagitis Plan: Continue the pantoprazole in the morning half an hour before breakfast. Patient can decrease sucralfate till 1 a day. Patient can take it at bedtime. Continue avoiding dietary triggers in late night snacking. Staying upright for minimum 3 hours after meals discussed with patient. (2) IBS (irritable bowel syndrome): Code(s): K58.9 - Irritable bowel syndrome without diarrhea Qualifiers: Irritable bowel syndrome type: with constipation Qualified Code(s): K58.1 - Irritable bowel syndrome with constipation Plan: Continue on all FODMAP diet. Lactose-free products like a lactose-free cheese. (3) Constipation: Code(s): K59.00 - Constipation, unspecified Qualifiers: Constipation type: chronic idiopathic constipation Qualified Code(s): K59.04 - Chronic idiopathic constipation Plan: Occasional constipation despite taking Linzess. Patient can increase Linzess to 290 mcg daily. Patient was also encouraged to increase fluid intake and activity to promote better bowel motility. (4) Postprandial abdominal pain in right upper quadrant: Code(s): R10.11 - Right upper quadrant pain Plan: Occasional postprandial right upper quadrant pain. Discussed with patient avoiding dietary triggers. Ultrasound showed slough in the gallbladder but no stones or no cholecystitis. If patient will continue with pain postprandially we will send her for HIDA scan. I will see her in 6 months, sooner on as needed basis. Patient is agreeable to this plan and verbalizes understanding of instructions. She was given the opportunity to ask questions all questions answered. Thank you for allowing me to participate in her care Medications: New linaclotide (Linzess) 290 mcg PO QAM 30 caps 4RF K59.00 - Constipation, unspecified Changed From sucralfate 1 g PO BID 60 tabs 1RF R19.7 - Diarrhea, unspecified To sucralfate 1 g PO BEDTIME 90 tabs 2RF R19.7 - Diarrhea, unspecified Discontinued linaclotide (Linzess) Discontinued Reason: Doctor's Order 145 mcg PO DAILY 30 caps 2RF Coding Level of Care Code Est Pt Level 4 (62411) Diagnoses Gastroesophageal reflux disease without esophagitis K21.9 Esophagitis presence: without esophagitis Irritable bowel syndrome with constipation K58.1 Irritable bowel syndrome type: with constipation Chronic idiopathic constipation K59.04 Constipation type: chronic idiopathic constipation Postprandial abdominal pain in right upper quadrant R10.11 Time Spent (min) 35 Comment 20 minutes spent with patient and additional 15 minutes spent reviewing her records
[2023-01-28 08:15] VITALS: BP 119/71; PULSE 73; BMI 21.3
== END 2023-01-28 08:45 | disposition home or self-care (01) ==
PROVIDERS: Visit Provider Nurse Practitioner Family
DX: K21.9 Gastro-esophageal reflux disease without esophagitis (principal); K58.1 Irritable bowel syndrome with constipation; K59.04 Chronic idiopathic constipation; R10.11 Right upper quadrant pain
CPT/HCPCS: 99214

== ENCOUNTER → 2023-01-28 08:01 | Outpatient (BNVA) | payer OTHER, SELFPAY | PROVIDERS: Visit Provider Nurse Practitioner Family ==

== ENCOUNTER → 2023-07-27 07:45 | Outpatient (BNV) | payer OTHER, SELFPAY | PROVIDERS: PCP Internal Medicine; Visit Provider Radiology Diagnostic Radiology | DX: Z12.31 Encounter for screening mammogram for malignant neoplasm of breast (principal) | CPT/HCPCS: 77063; 77067 ==

== ENCOUNTER 2023-07-27 07:49 | Outpatient (REF) | payer OTHER, SELFPAY | END 2023-07-27 07:50 | disposition home or self-care (01) | LOC: HO.MAMMO 07:49 | PROVIDERS: PCP Internal Medicine; Visit Provider Internal Medicine | DX: Z12.31 Encounter for screening mammogram for malignant neoplasm of breast (principal) | CPT/HCPCS: 77063; 77067 ==

== ENCOUNTER 2023-07-29 07:43 | Outpatient (AMB) | payer OTHER, SELFPAY ==
[2023-07-29 08:05] VITALS: BP 117/58; PULSE 75; BMI 22.7
--- NOTE | 2023-07-29 08:05 | A.OFFVIS_ITS ---
Intake Vital Signs 07/29/23 08:05 Height 5 ft 4 in Weight 132 lb 4.438 oz BMI 22.7 BP 117/58 L Blood Pressure Location Lt brachial Position Sitting Pulse 75 Pulse Source Pulse Oximeter Intake Visit Reasons: 6 month follow up Constipation Intake Note: Pt presents to the office today for a 6 month follow up for constipation. Pt states the medication is helping her constipation but she states she still will have constipation occasionally. She states she does have upper abdomen pain occasionally. Pt states she gets nauseous about 3x a week at random times. Pt denies any vomiting. Allergies aspirin [Aspirin] Allergy (Mild, Verified 07/29/23 08:07) UPSET STOMACH, RASH HPI 6 month follow up Constipation HPI Details LAST VISIT GERD (gastroesophageal reflux disease) Continue the pantoprazole in the morning half an hour before breakfast. Patient can decrease sucralfate till 1 a day. Patient can take it at bedtime. Continue avoiding dietary triggers in late night snacking. Staying upright for minimum 3 hours after meals discussed with patient. IBS (irritable bowel syndrome) Continue on all FODMAP diet. Lactose-free products like a lactose-free cheese. Constipation Occasional constipation despite taking Linzess. Patient can increase Linzess to 290 mcg daily. Patient was also encouraged to increase fluid intake and activity to promote better bowel motility. Postprandial abdominal pain in right upper quadrant Occasional postprandial right upper quadrant pain. Discussed with patient avoiding dietary triggers. Ultrasound showed slough in the gallbladder but no stones or no cholecystitis. If patient will continue with pain postprandially we will send her for HIDA scan. I will see her in 6 months, sooner on as needed basis. Patient is agreeable to this plan and verbalizes understanding of instructions. She was given the opportunity to ask questions all questions answered. ? Thank you for allowing me to participate in her care Plan Medications New linaclotide (Linzess) 290 mcg PO QAM 30 caps 4RF K59.00 Changed Changed From sucralfate 1 g PO BID 60 tabs 1RF R19.7 Changed To sucralfate 1 g PO BEDTIME 90 tabs 2RF R19.7 Discontinued linaclotide (Linzess) Discontinued Reason: Doctor's Order 145 mcg PO DAILY 30 caps 2RF TODAY'S VISIT: Patient is here today for follow-up. Patient reports that since last time I have seen her she has been feeling little better. Patient will have a periodically abdominal pain and bloating. Patient reports that she occasionally will feel nauseous. Patient states that she takes Linzess 290 mcg daily and she does not have a bowel movements every day. Patient reports that her bowels are like small and stringy. She has not been having normal movements. Patient denies melena, hematochezia, unintentional weight loss or ribbon like stools. Patient denies any dyspepsia, dysphagia or odynophagia. Patient is taking p antoprazole every day and her symptoms of acid reflux are suppressed for the most part. Patient feels like she is nauseous when she is constipated. 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 Sexual orientation: Straight/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 Gender identity: Female Review of Systems Const Denies weight gain and Denies weight loss ENT Reports no additional complaints, Denies dysphagia and Denies odynophagia Card Reports no additional complaints Resp Reports no additional complaints GI Reports abdominal pain, Denies belching, Denies melena, Reports bloating, Denies change in bowel habits, Reports constipation, Denies dysphagia, Denies excessive flatus, Denies dyspepsia, Denies heartburn, Denies diarrhea, Reports loose stools, Reports nausea, Denies odynophagia and Denies vomiting Reports no additional complaints Musc Reports no additional complaints Neuro Reports no additional complaints Psych Reports no additional complaints Endo Reports no additional complaints Physical Exam Vital Signs: Last Vital Signs Pulse 75 07/29/23 08:05 BP 117/58 L 07/29/23 08:05 BMI result Body Mass Index 22.7 Const General: healthy appearing, no acute distress and well developed Nutritional Appearance: well nourished Orientation/consciousness: patient oriented x3 Resp Effort & Inspection: normal respiratory effort, able to speak in complete sentences, no tracheal deviation and symmetric chest movement Auscultation: clear to auscultation bilaterally Cardio Rate: regular rate GI Inspection: Yes normal to inspection and No distended Palpation (GI): Soft to palpation, not firm, nontender and No hepatosplenomegaly present Auscultation: normal bowel sounds General: Yes no CVA tenderness Back/Spine/Pelvis Back: no CVA tenderness Skin General skin exam: elasticity normal, turgor normal and dry skin Neuro General: patient oriented x3 Psych Appearance: grossly normal Mental Status: mental status grossly normal Assessment & Plan Assessment & Plan (1) GERD (gastroesophageal reflux disease): Code(s): K21.9 - Gastro-esophageal reflux disease without esophagitis Qualifiers: Esophagitis presence: esophagitis presence not specified Qualified Code(s): K21.9 - Gastro-esophageal reflux disease without esophagitis (2) IBS (irritable bowel syndrome): Code(s): K58.9 - Irritable bowel syndrome without diarrhea Qualifiers: Irritable bowel syndrome type: with both diarrhea and constipation Qualified Code(s): K58.2 - Mixed irritable bowel syndrome (3) Constipation: Code(s): K59.00 - Constipation, unspecified Qualifiers: Constipation type: chronic idiopathic constipation Qualified Code(s): K59.04 - Chronic idiopathic constipation (4) Postprandial abdominal pain in right upper quadrant: Code(s): R10.11 - Right upper quadrant pain Plan Continue with Linzess every morning. We will add Dulcolax tablets in the evening. Patient was encouraged to increase fluid intake and activity to promote better bowel motility discussed with patient will FODMAP diet. List of food recommended as well as list of food to avoid given to patient. Continue pantoprazole daily. Sucralfate at bedtime. Patient will have CT scan to rule out diverticulitis, colitis, cholelithiasis. I will see her in 4 months, sooner on as needed basis. Patient is agreeable to this plan and verbalizes understanding of instructions. She was given the opportunity to ask questions and all questions answered. Thank you for allowing me to participate in her care Orders: Orders CT abdomen pelvis w IV con Today R10.9 - Unspecified abdominal pain Blood Urea Nitrogen Today R10.11 - Right upper quadrant pain Creatinine Today R10.11 - Right upper quadrant pain Medications: New bisacodyl (Dulcolax (bisacodyl)) 10 mg (2 x 5 mg) PO BEDTIME 180 tabs 4RF Coding Level of Care Code Est Pt Level 4 (88822) Diagnoses Gastroesophageal reflux disease, unspecified whether esophagitis present K21.9 Esophagitis presence: esophagitis presence not specified Irritable bowel syndrome with both constipation and diarrhea K58.2 Irritable bowel syndrome type: with both diarrhea and constipation Chronic idiopathic constipation K59.04 Constipation type: chronic idiopathic constipation Postprandial abdominal pain in right upper quadrant R10.11 Time Spent (min) 35 Comment 20 minutes spent with patient and additional 15 minutes spent reviewing her records
== END 2023-07-29 08:30 | disposition home or self-care (01) ==
PROVIDERS: PCP Internal Medicine; Visit Provider Nurse Practitioner Family
DX: K21.9 Gastro-esophageal reflux disease without esophagitis (principal); K58.2 Mixed irritable bowel syndrome; K59.04 Chronic idiopathic constipation; R10.11 Right upper quadrant pain
CPT/HCPCS: 99214

== ENCOUNTER → 2023-07-29 07:43 | Outpatient (BNVA) | payer OTHER, SELFPAY | PROVIDERS: PCP Internal Medicine; Visit Provider Nurse Practitioner Family ==

== ENCOUNTER 2023-08-21 11:16 | Outpatient (AMB) | payer OTHER, SELFPAY ==
--- NOTE | 2023-08-21 11:18 | MHC.OFFVIS ---
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 She is doing well with no concerns. No menses in 5 months. Admits to hot flashes and enjoys having them. Patient is anxious about having a Pap smear today, discuss a guidelines she requested it to be done early. Attempting to eat a healthy diet with calcium and vitamin D and stays active with exercise. Currently newly sexually active. Denies any vaginal dryness or irritation. STI testing offered; she accepts. Last pap smear; 2021. Last mammogram; 2023. Colonoscopy is UTD. Patient is adopted there is no biological history that she is aware of. 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 Sexual orientation: Straight/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 Gender identity: Female Female Reproductive History Menstrual Total pregnancies: 3 Full term: 3 Number of Living Children: 3 Date of last pap smear: 07/13/21 (neg pap and hpv) Date of Mammogram: 07/27/23 (Birad 1) Review of Systems Const All systems reviewed & are unremarkable except as noted in HPI and below Reports as per HPI Eyes Reports no additional complaints ENT Reports no additional complaints Card Reports no additional complaints Resp Reports no additional complaints GI Reports as per HPI and Reports no additional complaints Reports as per HPI Musc Reports no additional complaints Skin/Breast Reports as per HPI Neuro Reports no additional complaints Psych Reports no additional complaints Endo Reports no additional complaints Alfie/Lymph Reports no additional complaints Aller/Immun Reports no additional complaints Physical Exam Vital Signs: Last Vital Signs BP 106/64 08/21/23 11:22 BMI result Body Mass Index 22.3 Const General: cooperative, healthy appearing, no acute distress, well developed and alert Orientation/consciousness: patient oriented x3 HEENT Head: Yes normal to inspection Eyes General: appearance normal, both eyes and all related structures Neck Neck: Yes normal visual inspection Thyroid: Thyroid normal Chest Chest palpation & inspection: normal inspection of the chest and other (no puckering, dimpling, peau de orange, retraction, discharge, masses) Breast/axilla inspection: normal inspection of the breasts Breast/axilla palpation: normal palpation of the breasts Resp Effort & Inspection: normal respiratory effort GI Inspection: Yes normal to inspection Palpation (GI): Soft to palpation Rectal Exam - Female: deferred General: Yes bladder normal to palpation External Female Exam: normal external appearance and normal appearance of the urethra Speculum Exam - Vagina: normal appearance of the vagina, normal palpation and normal vaginal discharge Speculum Exam - Cervix: normal appearance of the cervix and normal palpation Bimanual exam- vagina & uterus: normal bimanual exam, normal palpation, uterine size normal, bladder normal to palpation, normal palpation and non-tender Bimanual Exam- Adnexa, other: no masses Skin General skin exam: no rashes or lesions noted Rashes: no rashes Neuro General: patient oriented x3 Cognition (Neuro): normal cognition Extrem General: Yes normal to inspection Psych Attitude: cooperative Thought process: Normal thought process present Assessment & Plan Assessment & Plan (1) Encounter for annual routine gynecological examination: Code(s): Z01.419 - Encounter for gynecological examination (general) (routine) without abnormal findings Plan: Discussed: Current recommendations for pap smears per ASCCP guidelines. Breast awareness, periodic self breast exams and yearly mammogram. Maintain a healthy lifestyle, well balanced diet including Calcium 1,200 mg and Vitamin D 600 IU daily, and routine exercise. Parameters for menopause diagnosis: no menses for 1 year, advised to report any unusual patterns of bleeding. Patient verbalizes understanding and agrees to the plan of care. She was given opportunity to ask questions and all questions were answered to the best of my ability. RTO in 1 year for annual warehouse incentive selector exam. This note is constructed using voice recognition software. While every effort has been made to ensure accuracy, hostler helper errors may have been included. Orders: Orders CT NG by PCR Today Z20.2 - Contact with and (suspected) exposure to infections with a predominantly sexual mode of transmission Pap Smear Today Z01.419 - Encounter for gynecological examination (general) (routine) without abnormal findings Coding Level of Care Code Est Pt Prev Care 40-64y(28906) Diagnoses Encounter for annual routine gynecological examination Z01.419
[2023-08-21 11:22] VITALS: BP 106/64; BMI 22.3
== END 2023-08-21 11:48 | disposition home or self-care (01) ==
PROVIDERS: PCP Internal Medicine; Visit Provider Advanced Practice Midwife
DX: Z01.419 Encounter for gynecological examination (general) (routine) without abnormal findings (principal)
CPT/HCPCS: 99396

== ENCOUNTER 2023-08-21 11:16 | Outpatient (REF) | payer OTHER, SELFPAY ==
[2023-08-21 17:36] LABS: CT PCR NOT DETECTED (Not Detect.); NG PCR NOT DETECTED (Not Detect.)
[2023-08-27 04:18] LABS: HPV mRNA E6/E7 rflx Not Detected (Not Detected)
== END 2023-08-21 11:17 | disposition home or self-care (01) ==
LOC: HO.LNP 11:16
PROVIDERS: PCP Internal Medicine; Visit Provider Advanced Practice Midwife
DX: Z01.419 Encounter for gynecological examination (general) (routine) without abnormal findings (principal); Z20.2 Contact with and (suspected) exposure to infections with a predominantly sexual mode of transmission
CPT/HCPCS: 0353U; 87624; 88142

== ENCOUNTER → 2023-09-30 07:46 | Outpatient (REF) | payer OTHER, SELFPAY ==
--- NOTE | ~2023-09-30 | NM_ITS ---
EXAMINATION: BILIARY TRACT IMAGING STUDY WITH CCK CLINICAL INFORMATION: Right upper quadrant abdominal pain. COMPARISON: Abdominal ultrasound done on 11/16/2022.. TECHNIQUE: Serial gamma scintillation camera images were obtained over the abdomen for a total observation period of 60 minutes following the intravenous administration of 5 mCi Tc-99m mebrofenin. FINDINGS: There is good concentration of activity in the liver by 5 minutes post injection. Biliary activity is visualized by 10 minutes. The gallbladder is well visualized by 20 minutes. Small bowel is well visualized by 80 minutes. At 60 minutes post radiopharmaceutical injection, a 30-minute infusion of 1.2 micrograms Sincalide was then begun and an additional 40 minutes of images were obtained. There is adequate emptying of the gallbladder. By the end of the study there is good clearance of activity from the liver and visualization of diffuse small bowel activity. The calculated gallbladder ejection fraction is 39% (Normal range of gallbladder ejection fraction is between 35-80%; GBEF <35% is considered biliary hypokinesia and >80% is considered biliary hyperkinesia; Ref. #1-Clinical Journal of Gastroenterology (2020) 14:1308?1317; Ref.#2-[email or web address]). NM/NM hepatobiliary w pharm IMPRESSION: Visualization of the gallbladder is evidence of a patent cystic duct and strong evidence against the diagnosis of acute cholecystitis. The common bile duct is patent. Gallbladder emptying and ejection fraction are within normal limits. Liver function appears normal.
== END ==
LOC: HO.NUCMED 07:46
PROVIDERS: Visit Provider Nurse Practitioner Family
DX: R10.11 Right upper quadrant pain (principal)
CPT/HCPCS: 78227; A9537; J2805

== ENCOUNTER 2024-01-28 07:36 | Outpatient (REF) | payer OTHER, SELFPAY ==
[2024-01-28 07:54] LABS: Hematocrit 42.1 % (37.0-47.0); Hemoglobin 13.1 g/dl (12.0-16.0); Mean Corpuscular HGB Conc 31.1 g/dl (31.0-35.0); Mean Corpuscular Hemoglobin 28.5 pg (27.0-33.0); Mean Corpuscular Volume 91.7 fL (80.0-98.0); Mean Platelet Volume 10.6 fL (9.4-12.3); Platelet Count 146 X10*3/uL (160-400); Red Blood Count 4.59 X10*6/uL (4.20-5.50); Red Cell Distribution Width 13.5 % (11.0-16.0); White Blood Count 5.6 X10*3/uL (4.8-10.8)
[2024-01-28 08:18] LABS: Albumin Level 4.4 g/dL (3.5-5.0); Aspartate Amino Transferase 22 U/L (5-31); Bilirubin Direct 0.2 mg/dL (0.0-0.5); Bilirubin Total 0.9 mg/dL (0.0-1.0); Blood Urea Nitrogen 20 mg/dL (9-16); Estimated Glomerular Filt Rate > 60; Lipase 63 U/L (8-78); Total Protein 7.8 g/dL (6.5-8.0)
[2024-01-28 08:37] LABS: Alanine Aminotransferase 21 U/L (0-31); Alkaline Phosphatase 90 U/L (39-117)
[2024-01-29 21:03] LABS: Transglutaminase Ab IgG <1.0 U/mL; Transglutaminase IgA <1.0 U/mL
== END 2024-01-28 07:37 | disposition home or self-care (01) ==
LOC: HO.LAB 07:36
PROVIDERS: PCP Internal Medicine; Visit Provider Nurse Practitioner Family
DX: R10.11 Right upper quadrant pain (principal); R10.9 Unspecified abdominal pain; K21.9 Gastro-esophageal reflux disease without esophagitis
CPT/HCPCS: 36415; 80076; 82565; 83690; 84520; 85027; 86364

== ENCOUNTER 2024-02-03 08:04 | Outpatient (AMB) | payer OTHER, SELFPAY ==
--- NOTE | 2024-02-03 08:07 | A.OFFVIS_ITS ---
Vital Signs 02/03/24 08:09 Height 5 ft 4 in Weight 130 lb 8.218 oz BMI 22.4 BP 124/68 Blood Pressure Location Lt brachial Position Sitting Pulse 78 Pulse Source Pulse Oximeter Pulse Oximetry (%) 99 Oxygen Delivery Method Room Air Intake Visit Reasons: 6 month follow up RUQP Intake Note: Racheal presents in office today for a scheduled 6 mos FUV. CC; Pt was rx'd dulcolax at their last visit (refill). Pt did complete their ordered lab work. However, their CT scan remains active/outstanding. Pt reports that they have been doing much better since their last visit. Pt does still report occasional pain in the same region as previously; however, it is much less severe and frequent. Hair Preparer Required: No Allergies aspirin [Aspirin] Allergy (Mild, Verified 02/03/24 08:08) UPSET STOMACH, RASH HPI HPI 6 month follow up RUQP: Details: LAST VISIT GERD (gastroesophageal reflux disease) IBS (irritable bowel syndrome) Constipation Postprandial abdominal pain in right upper quadrant Plan Continue with Linzess every morning. We will add Dulcolax tablets in the evening. Patient was encouraged to increase fluid intake and activity to promote better bowel motility discussed with patient will FODMAP diet. List of food recommended as well as list of food to avoid given to patient. Continue pantoprazole daily. Sucralfate at bedtime. Patient will have CT scan to rule out diverticulitis, colitis, cholelithiasis. I will see her in 4 months, sooner on as needed basis. Patient is agreeable to this plan and verbalizes understanding of instructions. She was given the opportunity to ask questions and all questions answered. ? Thank you for allowing me to participate in her care Orders Orders CT abdomen pelvis w IV con Today R10.9 Blood Urea Nitrogen Today R10.11 Creatinine Today R10.11 Medications New bisacodyl (Dulcolax (bisacodyl)) 10 mg (2 x 5 mg) PO BEDTIME 180 tabs 4RF TODAY'S VISIT Patient is here today for follow-up. Patient reports that since the last time she has been seen she has been doing much better. Patient started taking magnesium 400 mg at bedtime and reports that she is moving her bowels better. Stopped taking Linzess. Takes Dulcolax tablets only on as needed basis. P atient states that she changed her diet. Eating lots of vegetables and fish. Patient is also using jackson seeds, adding it to some of her meals. Patient denies any melena, hematochezia. Last colonoscopy in 2020 showed hyperplastic polyps and colonoscopy was recommended in 10 years patient denies any diarrhea. No abdominal pain or discomfort. Patient does admit occasional abdominal pain when she is constipated. Patient denies any dyspepsia, dysphagia or odynophagia. Patient denies any GI concerning symptoms. 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 Sexual orientation: Straight/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 Gender identity: Female Review of Systems Const Denies weight gain and Denies weight loss ENT Reports no additional complaints, Denies dysphagia and Denies odynophagia Card Reports no additional complaints Resp Reports no additional complaints GI Denies abdominal pain, Denies belching, Denies melena, Denies bloating, Denies change in bowel habits, Denies dysphagia, Denies excessive flatus, Denies dyspepsia, Denies heartburn, Denies diarrhea, Denies loose stools, Denies nausea, Denies odynophagia and Denies vomiting Musc Reports no additional complaints Neuro Reports no additional complaints Psych Reports no additional complaints Endo Reports no additional complaints Physical Exam Vital Signs: Last Vital Signs Pulse 78 02/03/24 08:09 BP 124/68 02/03/24 08:09 Pulse Ox 99 02/03/24 08:09 Oxygen Delivery Method Room Air 02/03/24 08:09 BMI result Body Mass Index 22.4 Const General: healthy appearing, no acute distress and well developed Nutritional Appearance: well nourished Orientation/consciousness: patient oriented x3 Resp Effort & Inspection: normal respiratory effort, able to speak in complete sente nces, no tracheal deviation and symmetric chest movement Auscultation: clear to auscultation bilaterally Cardio Rate: regular rate GI Inspection: Yes normal to inspection and No distended Palpation (GI): Soft to palpation, not firm, nontender and No hepatosplenomegaly present Auscultation: normal bowel sounds General: Yes no CVA tenderness Back/Spine/Pelvis Back: no CVA tenderness Skin General skin exam: elasticity normal, turgor normal and dry skin Neuro General: patient oriented x3 Psych Appearance: grossly normal Mental Status: mental status grossly normal Results Reviewed Results Reviewed: HIDA SCAN FINDINGS: There is good concentration of activity in the liver by 5 minutes post injection. Biliary activity is visualized by 10 minutes. The gallbladder is well visualized by 20 minutes. Small bowel is well visualized by 80 minutes. At 60 minutes post radiopharmaceutical injection, a 30-minute infusion of 1.2 micrograms Sincalide was then begun and an additional 40 minutes of images were obtained. There is adequate emptying of the gallbladder. By the end of the study there is good clearance of activity from the liver and visualization of diffuse small bowel activity. The calculated gallbladder ejection fraction is 39% (Normal range of gallbladder ejection fraction is between 35-80%; GBEF <35% is considered biliary hypokinesia and >80% is considered biliary hyperkinesia; Ref. #1-Clinical Journal of Gastroenterology (2020) 14:1308?1317; Ref.#2-[email or web address]). NM/NM hepatobiliary w pharm IMPRESSION: Visualization of the gallbladder is evidence of a patent cystic duct and strong evidence against the diagnosis of acute cholecystitis. The common bile duct is patent. Gallbladder emptying and ejection fraction are within normal limits. Liver function appears normal. Assessment & Plan Assessment & Plan (1) IBS (irritable bowel syndrome): Code(s): K58.9 - Irritable bowel syndrome without diarrhea Qualifiers: Irritable bowel syndrome type: without diarrhea Qualified Code(s): K58.9 - Irritable bowel syndrome without diarrhea (2) Constipation: Code(s): K59.00 - Constipation, unspecified Qualifiers: Constipation type: slow transit constipation Qualified Code(s): K59.01 - Slow transit constipation (3) Postprandial abdominal pain in right upper quadrant: Code(s): R10.11 - Right upper quadrant pain Plan Continue avoiding dietary triggers. Continue high-fiber diet. Increase fluid intake and activity to promote better bowel motility. Follow-up in 1 year, sooner if clinically necessary. Patient is agreeable to this plan and verbalizes understanding of instructions. She was given the opportunity to ask questions and all questions answered. Thank you for allowing me to participate in her care Medications: Discontinued simethicone (Gas Relief (simethicone)) Discontinued Reason: Patient no longer taking 125 mg PO TID-QID PRN 120 caps 2RF abdominal distention sucralfate Discontinued Reason: Patient no longer taking 1 g PO BEDTIME 90 tabs 2RF R19.7 - Diarrhea, unspecified Coding Level of Care Code Est Pt Level 3 (56966) Diagnoses Irritable bowel syndrome without diarrhea K58.9 Irritable bowel syndrome type: without diarrhea Slow transit constipation K59.01 Constipation type: slow transit constipation Postprandial abdominal pain in right upper quadrant R10.11 Time Spent (min) 25 Comment 15 minutes spent with patient and additional 10 minutes spent reviewing her records
[2024-02-03 08:09] VITALS: BP 124/68; PULSE 78; O2SAT 99; BMI 22.4
== END 2024-02-03 08:39 | disposition home or self-care (01) ==
PROVIDERS: PCP Internal Medicine; Visit Provider Nurse Practitioner Family
DX: K58.9 Irritable bowel syndrome, unspecified (principal); K59.01 Slow transit constipation; R10.11 Right upper quadrant pain
CPT/HCPCS: 99213

== ENCOUNTER → 2024-02-03 08:04 | Outpatient (BNVA) | payer OTHER, SELFPAY | PROVIDERS: PCP Internal Medicine; Visit Provider Nurse Practitioner Family ==

== ENCOUNTER → 2024-08-14 07:45 | Outpatient (BNV) | payer OTHER, SELFPAY | PROVIDERS: PCP Internal Medicine; Visit Provider Internal Medicine | DX: N64.4 Mastodynia (principal) | CPT/HCPCS: 76642; 77062; 77066 ==

== ENCOUNTER 2024-08-14 07:48 | Outpatient (REF) | payer OTHER, SELFPAY ==
--- NOTE | ~2024-08-14 | MM_ITS ---
EXAMINATION: MM DIAGNOSTIC DIGITAL BREAST TOMOSYNTHESIS, BILATERAL Limited left breast ultrasound. CLINICAL INFORMATION: Left breast pain central inner breast. COMPARISON: Mammography: Comparison is made with relevant prior exams. TECHNIQUE: Digital breast mammography with tomosynthesis is performed in both the craniocaudal and mediolateral oblique views along with computer-aided detection (CAD). FINDINGS: The breasts are heterogeneously dense, which may obscure small masses (ACR BI-RADS breast composition Category c). Triangular marker in the central inner left breast without underlying abnormality. There are no significant masses, abnormal calcifications, or other abnormalities. Targeted color Doppler ultrasound scanning in the area of patient's pain from 7-11 o'clock demonstrates normal fibroglandular breast tissue. There is no sonographic abnormality. Results are provided to the patient at time of visit by the technologist. MM/MM tomosynthesis diagnostic BI IMPRESSION: Left: No mammographic or significant radiographic abnormality to account for the patient's left breast pain. Recommend clinical evaluation follow-up. Right: Negative. ASSESSMENT: BI-RADS BI-RADS 1 - Negative RECOMMENDATION: 1 year F/U This patient's information was entered into a reminder system with a target due date for their next mammogram. Electronically signed by: Jayne Sapp DO 08/14/2024 09:33 AM EDT
== END 2024-08-14 07:49 | disposition home or self-care (01) ==
LOC: HO.MAMMO 07:48
PROVIDERS: PCP Internal Medicine; Visit Provider Internal Medicine
DX: N64.4 Mastodynia (principal)
CPT/HCPCS: 76642; 77062; 77066

== ENCOUNTER 2024-08-21 15:57 | Outpatient (AMB) | payer OTHER, SELFPAY ==
--- NOTE | 2024-08-21 16:02 | MHC.OFFVIS ---
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 Abd pain. 1 YR FUV. Intake Note: ESTABLISHED PATIENT for abd pain mgmt, 1 YR FUV. Chief Complaint; C/O RU and LUQ Pain, early satiety, constipation, nausea w/o vomiting or reflux, no signs of hemorrhoids. Pt is very concerned because she has been following Rx and diet regimen religiously and has still been experiencing sx. 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 Abd pain. 1 YR FUV.: Details: LAST VISIT 02/03/2024 IBS (irritable bowel syndrome) Constipation Postprandial abdominal pain in right upper quadrant Plan Continue avoiding dietary triggers. Continue high-fiber diet. Increase fluid intake and activity to promote better bowel motility. Follow-up in 1 year, sooner if clinically necessary. Patient is agreeable to this plan and verbalizes understanding of instructions. She was given the opportunity to ask questions and all questions answered. ? Thank you for allowing me to participate in her care Medications Discontinued simethicone (Gas Relief (simethicone)) Discontinued Reason: Patient no longer taking 125 mg PO TID-QID PRN 120 caps 2RF abdominal distention sucralfate Discontinued Reason: Patient no longer taking 1 g PO BEDTIME 90 tabs 2RF R19.7 TODAY'S VISIT Patient is here today for requested visit. Patient last saw me in January and was doing quite well and we made decision for patient to follow-up in 1 year. However patient recently has been experiencing symptoms similar to when she started seeing me 1st. Epigastric pain postprandially, feeling full. Currently she is not on any PPI and only taking Dulcolax to help her move her bowels. Patient reports that she religiously is taking that every day, however she feels like it is no longer helping. Patient tried milk of magnesia and it was not as helpful as when she got [id number] magnesium citrate and drank the whole bottle she was able to empty. Patient denies melena, hematochezia, unintentional weight loss or ribbon like stools. Reports occasional dyspepsia without dysphagia or odynophagia. Previously patient was treated with PPI for her symptoms and has tolerated well. Patient changed her insurance and PPI's are no longer covered. Patient will try to go to [facility] with good Rx script. Patient denies any nausea or vomiting. 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 Sexual orientation: Straight/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 Gender identity: Female Review of Systems Const Denies weight gain and Denies weight loss ENT Reports no additional complaints, Denies dysphagia and Denies odynophagia Card Reports no additional complaints Resp Reports no additional complaints GI Reports abdominal pain (Epigastric), Denies belching, Denies melena, Reports bloating, Denies change in bowel habits, Reports constipation, Denies dysphagia, Denies excessive flatus, Denies dyspepsia, Reports heartburn, Denies diarrhea, Denies loose stools, Denies nausea, Denies odynophagia and Denies vomiting Reports no additional complaints Musc Reports no additional complaints Neuro Reports no additional complaints Psych Reports no additional complaints Endo Reports no additional complaints Physical Exam Vital Signs: Last Vital Signs Pulse 66 08/21/24 16:11 BP 102/50 L 08/21/24 16:11 Pulse Ox 97 08/21/24 16:11 Oxygen Delivery Method Room Air 08/21/24 16:11 BMI result Body Mass Index 23.0 Const General: healthy appearing, no acute distress and well developed Nutritional Appearance: well nourished Orientation/consciousness: patient oriented x3 Resp Effort & Inspection: normal respiratory effort, able to speak in complete sentences, no tracheal deviation and symmetric chest movement Auscultation: clear to auscultation bilaterally Cardio Rate: regular rate GI Inspection: Yes normal to inspection and No distended Palpation (GI): Soft to palpation, not firm, nontender and No hepatosplenomegaly present Auscultation: normal bowel sounds General: Yes no CVA tenderness Back/Spine/Pelvis Back: no CVA tenderness Skin General skin exam: elasticity normal, turgor normal and dry skin Neuro General: patient oriented x3 Psych Appearance: grossly normal Mental Status: mental status grossly normal Assessment & Plan Assessment & Plan (1) Postprandial epigastric pain: Code(s): R10.13 - Epigastric pain Category: Medical (2) IBS (irritable bowel syndrome): Code(s): K58.9 - Irritable bowel syndrome, unspecified Qualifiers: Irritable bowel syndrome type: with constipation Qualified Code(s): K58.1 - Irritable bowel syndrome with constipation (3) Constipation: Code(s): K59.00 - Constipation, unspecified Qualifiers: Constipation type: slow transit constipation Qualified Code(s): K59.01 - Slow transit constipation (4) Postprandial abdominal pain in right upper quadrant: Code(s): R10.11 - Right upper quadrant pain (5) Abdominal pain, LUQ (left upper quadrant): Code(s): R10.12 - Left upper quadrant pain (6) GERD (gastroesophageal reflux disease): Code(s): K21.9 - Gastro-esophageal reflux disease without esophagitis Category: Medical Qualifiers: Esophagitis presence: esophagitis presence not specified Qualified Code(s): K21.9 - Gastro-esophageal reflux disease without esophagitis Plan Patient will continue taking Dulcolax daily. May use Mag citrate as needed. Patient was encouraged to increase fluid intake and activity to promote better bowel motility. Patient will start taking Nexium every morning half an hour before breakfast. Avoid dietary triggers and late night snacking. Staying upright for minimal 3 hours after meals discussed with patient. Patient will be sent for upper GI series to evaluate for reflux, hiatal hernia, gastritis. She is complaining of epigastric pain and feeling of swelling and tenderness postprandially. I will see patient in 4 months, sooner on as needed basis. Patient is agreeable to this plan and verbalizes understanding of instructions. She was given the opportunity to ask questions and all questions answered. Thank you for me to participate in her care Orders: Orders FL upper GI w Ba Swallow Today K21.9 - Gastro-esophageal reflux disease without esophagitis, R10.13 - Epigastric pain Medications: New pantoprazole take one tablet half an hour before breakfast 40 mg PO DAILY 30 tabs 3RF K21.9 - Gastro-esophageal reflux disease without esophagitis magnesium citrate (Citrate of Magnesia oral) 150 mL PO DAILY PRN 296 mL 5RF constipation K59.00 - Constipation, unspecified bisacodyl (Dulcolax (bisacodyl)) 10 mg (2 x 5 mg) PO BEDTIME 180 tabs 4RF Discontinued bisacodyl (Dulcolax (bisacodyl)) Discontinued Reason: Doctor's Order 10 mg (2 x 5 mg) PO BEDTIME 180 tabs 4RF Coding Level of Care Code Est Pt Level 4 (65216) Complex EM visit Add On G2211 Diagnoses Postprandial epigastric pain R10.13 Irritable bowel syndrome with constipation K58.1 Irritable bowel syndrome type: with constipation Slow transit constipation K59.01 Constipation type: slow transit constipation Postprandial abdominal pain in right upper quadrant R10.11 Abdominal pain, LUQ (left upper quadrant) R10.12 Gastroesophageal reflux disease, unspecified whether esophagitis present K21.9 Esophagitis presence: esophagitis presence not specified Time Spent (min) 35 Comment 25 minutes spent with patient and additional 10 minutes spent reviewing her records
[2024-08-21 16:11] VITALS: BP 102/50; PULSE 66; O2SAT 97; BMI 23.0
--- OUTSIDE RECORDS SUMMARY | 2024-08-21 16:52 | XMS_ITS | Clinical Summary ---
Author Organization [address] Address [address] [place] [id number] Phone Care Team Providers Care Law Writer Name Role Phone Elio Taveras MD Primary Care Provider [phone] Encounters Date Type Department Care Team Description 07/15/2024 Lab Requisition [facility] - Main Lab [address] [facility] [address] [place] [address] Elio Taveras MD Postprocedural hypothyroidism; Unspecified osteoarthritis, unspecified site; Essential (primary) hypertension; Rheumatoid arthritis, unspecified (CMS/HCC); Hyperlipidemia, unspecified from Last 3 Months Social History Tobacco Use Types Packs/Day Years Used Date Smoking Tobacco: Never Assessed Comments Unknown Sex and Gender Information Value Date Recorded Sex Assigned at Not on file Legal Sex Female 4:15 AM EST Gender Identity Not on file Sexual Orientation Not on file Plan of Treatment Health Maintenance Due Date Last Done Comments Breast Cancer Screening 1969 DTaP,Tdap,and Td Vaccines (1 - Tdap) 1988 Hepatitis B Vaccines (1 of 3 - 19+ 3-dose series) 1988 Pneumococcal Vaccine: 50+ Years (1 of 2 - PCV) 1988 Pneumococcal Vaccine: Pediatrics (0 to 5 Years) and At-Risk Patients (6 to 64 Years) (1 of 2 - PCV) 1988 Cervical Cancer Screening: P ap Smear 1990 Zoster Vaccines (2 of 3) 02/02/2021 12/08/2020 Colorectal Cancer Screening: Colonoscopy 04/22/2022 Depression Screening 04/22/2022 HIV Screening 04/22/2022 Hepatitis C Screening 04/22/2022 Social Influencers of Health Screening 04/22/2022 COVID-19 Vaccine (1 - 2023-2 5 season) 2024 Influenza Vaccine (#1) 2024 Hypertension/CHF/CAD Annual BMP Blood Test 07/27/2025 07/27/2024, 06/26/2022, 06/26/2022 Cholesterol Screening (Lipid Panel) 07/27/2029 07/27/2024 HIB Vaccines Aged Out No longer eligi ble based on patient's age to complete this topic HPV Vaccines Aged Out No longer eligi ble based on patient's age to complete this topic Hepatitis A Vaccines Aged Out No long er eligible based on patient's age to complete this topic IPV Vaccines Aged Out No longer eligi ble based on patient's age to complete this topic MMR Vaccines Aged Out No longer eligi ble based on patient's age to complete this topic Meningococcal ACWY Vaccine Aged Out N o longer eligible based on patient's age to complete this topic Meningococcal B Vacine Aged Out No lo nger eligible based on patient's age to complete this topic RSV Immunization Patients Under 20 months Aged Out No longer eligible b ased on patient's age to complete this topic Varicella Vaccines Aged Out No longer eligible based on patient's age to complete this topic Procedures Procedure Name Priority Date/Time Associated Diagnosis Comments THYROID STIMULATING HORMONE Routine 07/27/2024 9:56 AM EDT Essential hypertension, malignant Senile arthritis Routine general medical examination at a health care facility Hyperlipemia Atrophic arthritis (CMS/HCC) Postsurgical hypothyroidism SEDIMENTATION RATE Routine 07/27/2024 9: 56 AM EDT Essential hypertension, malignant Senile arthritis Routine general medical examination at a health care facility Hyperlipemia Atrophic arthritis (CMS/HCC) Postsurgical hypothyroidism RHEUMATOID FACTOR Routine 07/27/2024 9:5 6 AM EDT Essential hypertension, malignant Senile arthritis Routine general medical examination at a health care facility Hyperlipemia Atrophic arthritis (CMS/HCC) Postsurgical hypothyroidism LIPID PANEL WITH REFLEX TO DIRECT LDL Routine 07/27/2024 9:56 AM EDT Essential hypertension, malignant Senile arthritis Routine general medical examination at a health care facility Hyperlipemia Atrophic arthritis (CMS/HCC) Postsurgical hypothyroidism C-REACTIVE PROTEIN Routine 07/27/2024 9: 56 AM EDT Essential hypertension, malignant Senile arthritis Routine general medical examination at a health care facility Hyperlipemia Atrophic arthritis (CMS/HCC) Postsurgical hypothyroidism COMPREHENSIVE METABOLIC PANEL Routine 07/27/2024 9:56 AM EDT Essential hypertension, malignant Senile arthritis Routine general medical examination at a health care facility Hyperlipemia Atrophic arthritis (CMS/HCC) Postsurgical hypothyroidism ELIZABETH IFA WITH TITER AND PATTERN Routine 07/27/2024 9:56 AM EDT Essential hypertension, malignant Senile arthritis Routine general medical examination at a health care facility Hyperlipemia Atrophic arthritis (CMS/HCC) Postsurgical hypothyroidism from Last 3 Months Results * (ABNORMAL) Lipid panel with reflex to direct LDL (07/27/2024 9:56 AM EDT) Cholesterol 276(H) 0 - 200 mg/dL LAB CHEMISTRY METHOD 07/27/2024 1:[address] [facility] Triglycerides 102 0 - 150 mg/dL LAB CHEMISTRY METHOD 07/27/2024 1:[address] [facility] HDL 78 >=40 mg/dL LAB CHEMISTRY METHOD 07/27/2024 1:[address] [facility] LDL Calculated 178(H) 0 - 100 mg/dL LAB CHEMISTRY METHOD 07/27/2024 1:[address] [facility] VLDL Cholesterol Sha 20.4 mg/dL LAB CHEMISTRY METHOD 07/27/2024 1:[address] [facility] Non HDL Chol. (LDL+VLDL) 198(H) <145 mg/dL LAB CHEMISTRY METHOD 07/27/2024 1:[address] [facility] Chol/HDL Ratio 3.5 0.0 - 4.4 LAB CHEMISTRY METHOD 07/27/2024 1:[address] [facility] Blood Venous blood specimen / Unknown Venipuncture / Unknown 07/27/2024 9:56 AM EDT 07/27/2024 11:40 AM EDT us Elio Taveras MD LAB BLOOD ORDERABLES Final Res ult Performing Organization Address [facility] Co de Phone Number [facility] [address] [place] [address], [place] [phone] * ELIZABETH IFA with titer and pattern (07/27/2024 9:56 AM EDT) [facility] ELIZABETH Negative Negative 07/28/2024 12:37 PM EDT [facility] Blood Venous blood specimen / Unknown Venipuncture / Unknown 07/27/2024 9:56 AM EDT 07/27/2024 11:39 AM EDT Elio Taveras MD LAB BLOOD ORDERABLES Final Res ult Performing Organization Address [facility] Co de Phone Number [facility] [address] [place] [address], [place] [phone] * Sedimentation rate (07/27/2024 9:56 AM EDT) [facility] Sed Rate 14 0 - 30 mm/hr LAB HEMETOLOGY METHOD 07/27/2024 11:58 AM EDT [facility] Blood Venous blood specimen / Unknown Venipuncture / Unknown 07/27/2024 9:56 AM EDT 07/27/2024 11:44 AM EDT us Elio Taveras MD LAB BLOOD ORDERABLES Final Res ult Performing Organization Address [facility]/ZIP Co de Phone Number [facility] [address] [place] [address], [place] [phone] * Rheumatoid factor (07/27/2024 9:56 AM EDT) [facility] Rheumatoid Factor <10.0 <15.0 I Unit/mL LAB CHEMISTRY METHOD 07/27/2024 1:50 PM EDT [facility] Blood Venous blood specimen / Unknown Venipuncture / Unknown 07/27/2024 9:56 AM EDT 07/27/2024 11:40 AM EDT us Elio Taveras MD LAB BLOOD ORDERABLES Final Res ult Performing Organization Address City/[facility]/ZIP Co de Phone Number [facility] [address] [place] [address], [place] [phone] * C-reactive protein (07/27/2024 9:56 AM EDT) [facility] C-Reactive Protein <0.29 <=0.50 mg/dL LAB CHEMISTRY METHOD 07/27/2024 1:50 PM EDT [facility] Blood Venous blood specimen / Unknown Venipuncture / Unknown 07/27/2024 9:56 AM EDT 07/27/2024 11:40 AM EDT us Elio Taveras MD LAB BLOOD ORDERABLES Final Res ult Performing Organization Address [facility] Co de Phone Number [facility] [address] [place] [address], [place] [phone] * Thyroid stimulating hormone (07/27/2024 9:56 AM EDT) Pathologist [facility] TSH 3.77 0.40 - 4.00 mcIU/mL LAB CHEMISTRY METHOD 07/27/2024 1:36 PM EDT [facility] Blood Venous blood specimen / Unknown Venipuncture / Unknown 07/27/2024 9:56 AM EDT 07/27/2024 11:40 AM EDT us Elio Taveras MD LAB BLOOD ORDERABLES Final Res ult Performing Organization Address City/[facility]/ZIP Co de Phone Number [facility] [address] [place] [address], [place] [phone] * (ABNORMAL) Comprehensive metabolic panel (07/27/2024 9:56 AM EDT) [facility] Signature Sodium 140 133 - 145 mmol/L LAB CHEMISTRY METHOD 07/27/2024 1:[address] [facility] Potassium 4.5 3.5 - 5.5 mmol/L LAB CHEMISTRY METHOD 07/27/2024 1:[address] [facility] Chloride 105 96 - 110 mmol/L LAB CHEMISTRY METHOD 07/27/2024 1:[address] [facility] CO2 26 21 - 32 mmol/L LAB CHEMISTRY METHOD 07/27/2024 1:[address] [facility] Anion Gap 9 3 - 11 LAB CHEMISTRY METHOD 07/27/2024 1:[address] [facility] Glucose 79 70 - 100 mg/dL LAB CHEMISTRY METHOD 07/27/2024 1:[address] [facility] BUN 26(H) 5 - 25 mg/dL LAB CHEMISTRY METHOD 07/27/2024 1:[address] [facility] Creatinine 0.89 0.50 - 1.10 mg/dL LAB CHEMISTRY METHOD 07/27/2024 1:[address] [facility] eGFR 77 >=60 mL/min/1. 73m2 LAB CHEMISTRY METHOD 07/27/2024 1:[address] [facility] Comment:Calculation based on the??Chronic Kidney Disease Epidemiology Collaboration (CKD-EPI) equation refit??without adjustment for race. BUN/Creatinine Ratio 29.2 LAB CHEMISTRY METHOD 07/27/2024 1:[address] [facility] Calcium 9.3 8.5 - 10.5 mg/dL LAB CHEMISTRY METHOD 07/27/2024 1:[address] [facility] AST (SGOT) 32 10 - 42 unit/L LAB CHEMISTRY METHOD 07/27/2024 1:50 PM EDT [facility] ALT (SGPT) 35 10 - 60 unit/L LAB CHEMISTRY METHOD 07/27/2024 1:50 PM EDT [facility] Alkaline Phosphatase 108 42 - 121 unit/L LAB CHEMISTRY METHOD 07/27/2024 1:50 PM EDT [facility] Total Protein 8.0 6.0 - 8.0 g/dL LAB CHEMISTRY METHOD 07/27/2024 1:50 PM EDT [facility] Albumin 4.4 3.2 - 5.0 g/dL LAB CHEMISTRY METHOD 07/27/2024 1:50 PM EDT [facility] Total Bilirubin 1.2 0.0 - 1.4 mg/dL LAB CHEMISTRY METHOD 07/27/2024 1:50 PM EDT [facility] Blood Venous blood specimen / Unknown Venipuncture / Unknown 07/27/2024 9:56 AM EDT 07/27/2024 11:40 AM EDT us Elio Taveras MD LAB BLOOD ORDERABLES Final Res ult [facility] [address] [place] [address], from Last 3 Months Insurance [facility] Care Teams Law Writer Relationship Specialty Start Date End Date Elio Taveras MD [address] [place] [address] PCP - General Internal Medicine 04/21/24
--- OUTSIDE RECORDS SUMMARY | 2024-08-21 16:52 | XMS_ITS | Clinical Summary ---
Author Organization [facility] Address [address] [place] [address] Care Team Providers Care Receiving Manager Name Role Phone Elio Taveras MD Primary Care Provider [phone] Allergies Active Allergy Reactions Criticality Noted Date Comments Aspirin Unknown/Patient and Family Unable to Define Medium 06/26/2022 Medications Medication Sig Dispensed Refills Start Date End Date Status dicyclomine (BENTYL) 10 MG capsule Take 1 capsule (10 mg total) by mouth 4 (four) times a day. 20 capsule 06/26/2022 Active ondansetron (ZOFRAN-ODT) 4 MG disintegrating tablet Take 1 tablet (4 mg total) by mouth 3 times daily (every 8 hours) as needed for nausea or vomiting. Place tablet on tongue to dissolve. 10 tablet 06/26/2022 Active Social History Tobacco Use Types Packs/Day Years Used Date Smoking Tobacco: Never Assessed Tobacco Cessation:Counseling Given: Not Answered Sex and Gender Information Value Date Recorded Sex Assigned at Female 06/26/2022 9:16 AM EST Gender Identity Female 06/26/2022 9:16 AM EST Sexual Orientation Choose not to disclose 2022 9:16 AM EST Last Filed Vital Signs Vital Sign Reading Time Taken Comments Blood Pressure 98/57 06/26/2022 9:12 AM EST Pulse 88 06/26/2022 9:12 AM EST Temperature 36.4 ??C (97.6 ??F) 06/26/2022 9:12 AM ES T Respiratory Rate 16 06/26/2022 9:12 AM EST Oxygen Saturation 100% 06/26/2022 9:12 AM EST Inhaled Oxygen Concentration - - Weight - - Height - - Body Mass Index - - Plan of Treatment Health Maintenance Due Date Last Done Comments Hepatitis C Virus Screening 1969 HIV Screening 1982 DTaP/Tdap/Td Vaccines (1 - Tdap) 1988 Hepatitis B Vaccines (1 of 3 - 19+ 3-dose series) 1988 Pap Smear (Ages 21-65) 1990 Mammogram 2009 Colonoscopy 2014 Pneumococcal Vaccines 50+ (1 of 1 - PCV) 10/05/2019 Zoster (Shingles) Vaccine (1 of 2) 10/05/2019 Influenza Vaccine 12/19/2023 COVID-19 Vaccine (1 - 2023-2 5 season) 2024 Pneumococcal Vaccine: Pediat rex (0-5 Years) and At-Risk Patients (6 to 49 Years) Aged Out No longer eligible b ased on patient's age to complete this topic Care Teams Receiving Manager Relationship Specialty Start Date End Date Elio Taveras MD [address] [id number] PCP - General 06/26/22
--- OUTSIDE RECORDS SUMMARY | 2024-08-21 16:55 | XMS_ITS | Encounter Summary ---
Author Organization [facility] Address [address] [place] [address] Care Team Providers Care Direct Care Counselor Name Role Phone Elio Taveras MD Primary Care Provider [phone] Encounter Details Date Type Department Care Team (Latest Contact Info) Description 07/15/[address] [facility] - Main Lab [address] [facility] [place] [address] Elio Taveras MD [address] [place], [place] [id number] Postprocedural hypothyroidism; Unspecified osteoarthritis, unspecified site; Essential (primary) hypertension; Rheumatoid arthritis, unspecified (CMS/HCC); Hyperlipidemia, unspecified Social History Tobacco Use Types Packs/Day Years Used Date Smoking Tobacco: Never Assessed Comments Unknown Sex and Gender Information Value Date Recorded Sex Assigned at Not on file Legal Sex Female 4:15 AM EST Gender Identity Not on file Sexual Orientation Not on file documented as of this encounter Plan of Treatment Scheduled Orders Name Type Priority Associated Diagnoses Orde r Schedule Thyroid stimulating hormone Lab Routine Postprocedural hypothyroidism Ordered: 07/15/2024 C-reactive protein Lab Routine Unspecified osteoarthritis, unspecified site Ordered: 07/15/2024 Comprehensive metabolic panel Lab Routine Essential (primary) hypertension Ordered: 07/15/2024 Rheumatoid factor Lab Routine Rheumatoid arthritis, unspecified (CMS/HCC) Ordered: 07/15/2024 Sedimentation rate Lab Routine Unspecified osteoarthritis, unspecified site Ordered: 07/15/2024 Sedimentation rate Lab Routine Unspecified osteoarthritis, unspecified site Ordered: 07/15/2024 ELIZABETH IFA with titer and pattern Lab Routine Ordered: 025 Lipid panel with reflex to direct LDL Lab Routine Hyperlipidemia, unspecified Ordered: 07/15/2024 documented as of this encounter Visit Diagnoses Diagnosis Postprocedural hypothyroidism Postsurgical hypothyroidism Unspecified osteoarthritis, unspecified site Essential (primary) hypertension Unspecified essential hypertension Rheumatoid arthritis, unspecified Hyperlipidemia, unspecified documented in this encounter Care Teams Direct Care Counselor Relationship Specialty Start Date End Date Elio Taveras MD [address] [place] [address] PCP - General Internal Medicine 04/21/24 documented as of this encounter
== END 2024-08-21 16:30 | disposition home or self-care (01) ==
LOC: HO.HGI 15:58
PROVIDERS: PCP Internal Medicine; Visit Provider Nurse Practitioner Family
DX: R10.13 Epigastric pain (principal); K58.1 Irritable bowel syndrome with constipation; K59.01 Slow transit constipation; R10.11 Right upper quadrant pain; R10.12 Left upper quadrant pain; K21.9 Gastro-esophageal reflux disease without esophagitis
CPT/HCPCS: 99214

== ENCOUNTER 2024-08-25 07:45 | Outpatient (REF) | payer OTHER, SELFPAY ==
--- OUTSIDE RECORDS SUMMARY | 2024-08-25 08:42 | XMS_ITS | Clinical Summary ---
Author Organization [facility] Address [address] [place] [address] Care Team Providers Care Sitecore Developer Name Role Phone Elio Taveras MD Primary Care Provider [phone] Allergies Active Allergy Reactions Criticality Noted Date [...] age to complete this topic Care Teams Sitecore Developer Relationship Specialty Start Date End Date Elio Taveras MD [address] [address] PCP - General 06/26/22
--- OUTSIDE RECORDS SUMMARY | 2024-08-25 08:42 | XMS_ITS | Clinical Summary ---
Author Organization [address] Address [address] [place] [phone] Phone Care Team Providers Care Book Repairer Name Role Phone Elio Taveras MD Primary Care Provider [phone] Encounters Date Type Department Care Team Description 07/15/[address] [facility] - Main Lab 299 [facility] [place] [address] Elio Taveras MD Postprocedural hypothyroidism; [...] mg/dL LAB CHEMISTRY METHOD 07/27/2024 1:50 PM [facility] Triglycerides 102 0 - 150 mg/dL LAB CHEMISTRY METHOD 07/27/2024 1:50 PM [facility] HDL 78 >=40 mg/dL LAB CHEMISTRY METHOD 07/27/2024 1:50 PM [facility] LDL Calculated 178(H) 0 - 100 mg/dL LAB CHEMISTRY METHOD 07/27/2024 1:50 PM [facility] VLDL Cholesterol Sha 20.4 mg/dL LAB CHEMISTRY METHOD 07/27/2024 1:50 PM [facility] Non HDL Chol. (LDL+VLDL) 198(H) <145 mg/dL LAB CHEMISTRY METHOD 07/27/2024 1:50 PM [facility] Chol/HDL Ratio 3.5 0.0 - 4.4 LAB CHEMISTRY METHOD 07/27/2024 1:50 PM [facility] Blood Venous blood specimen / Unknown Venipuncture / Unknown 07/27/2024 9:56 AM EDT 07/27/2024 11:40 AM EDT us Elio Taveras MD LAB BLOOD ORDERABLES Final Res ult Performing Organization Address [facility] Co de Phone Number [facility] [address] [place] [address], [place] [phone] * ELIZABETH IFA with titer and pattern (07/27/2024 9:56 AM EDT) [facility] ELIZABETH Negative Negative 07/28/2024 12:37 PM EDT [facility] Blood Venous blood specimen / Unknown Venipuncture / Unknown 07/27/2024 9:56 AM EDT 07/27/2024 11:39 AM EDT us Elio Taveras MD LAB BLOOD ORDERABLES Final Res ult Performing Organization Address [facility] Co de Phone Number [facility] [address] [place] [address], [place] [phone] * Sedimentation rate (07/27/2024 9:56 AM EDT) [facility] Sed Rate 14 0 - 30 mm/hr LAB HEMETOLOGY METHOD 07/27/2024 11:58 AM EDT [facility] Blood Venous blood specimen / Unknown Venipuncture / Unknown 07/27/2024 9:56 AM EDT 07/27/2024 11:44 AM EDT us Elio Taveras MD LAB BLOOD ORDERABLES Final Res ult Performing Organization Address [facility]/ZIP Co de Phone Number [facility] [address] [place] [address], [place] [phone] * Rheumatoid factor (07/27/2024 9:56 AM EDT) [facility] Rheumatoid Factor <10.0 <15.0 I Unit/mL LAB CHEMISTRY METHOD 07/27/2024 1:50 PM EDT [facility] Blood Venous blood specimen / Unknown Venipuncture / Unknown 07/27/2024 9:56 AM EDT 07/27/2024 11:40 AM EDT Elio Taveras MD LAB BLOOD ORDERABLES Final Res ult Performing Organization Address City/[facility]/ZIP Co de Phone Number [facility] [address] [place] [address], [place] [phone] * C-reactive protein (07/27/2024 9:56 AM EDT) [facility] C-Reactive Protein <0.29 <=0.50 mg/dL LAB CHEMISTRY METHOD 07/27/2024 1:50 PM EDT [facility] Blood Venous blood specimen / Unknown Venipuncture / Unknown 07/27/2024 9:56 AM EDT 07/27/2024 11:40 AM EDT us Elio Taveras MD LAB BLOOD ORDERABLES Final Res ult Performing Organization Address [facility] Co de Phone Number [facility] [address] [place] [address], [place] [phone] * Thyroid stimulating hormone (07/27/2024 9:56 AM EDT) Pathologist [facility] TSH 3.77 0.40 - 4.00 mcIU/mL LAB CHEMISTRY METHOD 07/27/2024 1:36 PM EDT [facility] Blood Venous blood specimen / Unknown Venipuncture / Unknown 07/27/2024 9:56 AM EDT 07/27/2024 11:40 AM EDT us Elio Taveras MD LAB BLOOD ORDERABLES Final Res ult Performing Organization Address City/[facility]/ZIP Co de Phone Number [facility] [address] [place] [address], [place] [phone] * (ABNORMAL) Comprehensive metabolic panel (07/27/2024 9:56 AM EDT) Sodium 140 133 - 145 mmol/L LAB CHEMISTRY METHOD 07/27/2024 1:50 PM [facility] Potassium 4.5 3.5 - 5.5 mmol/L LAB CHEMISTRY METHOD 07/27/2024 1:50 PM [facility] Chloride 105 96 - 110 mmol/L LAB CHEMISTRY METHOD 07/27/2024 1:50 PM [facility] CO2 26 21 - 32 mmol/L LAB CHEMISTRY METHOD 07/27/2024 1:50 PM [facility] Anion Gap 9 3 - 11 LAB CHEMISTRY METHOD 07/27/2024 1:50 PM [facility] Glucose 79 70 - 100 mg/dL LAB CHEMISTRY METHOD 07/27/2024 1:50 PM [facility] BUN 26(H) 5 - 25 mg/dL LAB CHEMISTRY METHOD 07/27/2024 1:50 PM [facility] Creatinine 0.89 0.50 - 1.10 mg/dL LAB CHEMISTRY METHOD 07/27/2024 1:50 PM [facility] eGFR 77 >=60 mL/min/1. 73m2 LAB CHEMISTRY METHOD 07/27/2024 1:50 PM [facility] Comment:Calculation based on the??Chronic Kidney Disease Epidemiology Collaboration (CKD-EPI) equation refit??without adjustment for race. BUN/Creatinine Ratio 29.2 LAB CHEMISTRY METHOD 07/27/2024 1:50 PM [facility] Calcium 9.3 8.5 - 10.5 mg/dL LAB CHEMISTRY METHOD 07/27/2024 1:50 PM [facility] AST (SGOT) 32 10 - 42 unit/L LAB CHEMISTRY METHOD 07/27/2024 1:50 PM EDT [facility] ALT (SGPT) 35 10 - 60 unit/L LAB CHEMISTRY METHOD 07/27/2024 1:50 PM EDT [facility] Alkaline Phosphatase 108 42 - 121 unit/L LAB CHEMISTRY METHOD 07/27/2024 1:50 PM EDT [facility] Total Protein 8.0 6.0 - 8.0 g/dL LAB CHEMISTRY METHOD 07/27/2024 1:50 PM EDT [facility] Albumin 4.4 3.2 - 5.0 g/dL LAB CHEMISTRY METHOD 07/27/2024 1:50 PM EDT [facility] Total Bilirubin 1.2 0.0 - 1.4 mg/dL LAB CHEMISTRY METHOD 07/27/2024 1:50 PM EDT [facility] Blood Venous blood specimen / Unknown Venipuncture / Unknown 07/27/2024 9:56 AM EDT 07/27/2024 11:40 AM EDT us Elio Taveras MD LAB BLOOD ORDERABLES Final Res ult [facility] [address] [place] [address], from Last 3 Months Insurance [facility] Care Teams Book Repairer Relationship Specialty Start Date End Date Elio Taveras MD [address] [place] [address] PCP - General Internal Medicine 04/21/24
--- OUTSIDE RECORDS SUMMARY | 2024-08-25 08:45 | XMS_ITS | Encounter Summary ---
Author Organization [facility] Address [address] [place] [address] Care Team Providers Care Intramural Director Name Role Phone Elio Taveras MD Primary Care Provider [phone] Encounter Details Date Type Department Care Team (Latest Contact Info) Description 07/15/2024 Lab Requisition [facility] - Main Lab 299 [facility] [address] Elio Taveras MD [address] [place], [place] [id number] Postprocedural hypothyroidism; Unspecified osteoarthritis, unspecified site; Essential [...] unspecified documented in this encounter Care Teams Intramural Director Relationship Specialty Start Date End Date Elio Taveras MD [address] [place] [address] PCP - General Internal Medicine 04/21/24 documented as of this encounter
[2024-08-26 08:58] LABS: Bacterial Vaginosis PCR POSITIVE (Negative); Candida Group PCR DETECTED (Not Detect); Candida glab krusei PCR NOT DETECTED (Not Detect); Trichomonas vaginalis PCR NOT DETECTED (Not Detect)
== END 2024-08-25 07:46 | disposition home or self-care (01) ==
LOC: HO.LAB 07:45
PROVIDERS: PCP Internal Medicine; Visit Provider Advanced Practice Midwife
DX: N89.8 Other specified noninflammatory disorders of vagina (principal)
CPT/HCPCS: 81003; 81515

== ENCOUNTER 2024-08-25 07:45 | Outpatient (AMB) | payer OTHER, SELFPAY ==
--- OUTSIDE RECORDS SUMMARY | 2024-08-25 07:48 | XMS_ITS | Clinical Summary ---
Author Organization [facility] Address [address] [place] [address] Care Team Providers Care Photographer Finish Name Role Phone Elio Taveras MD Primary Care Provider [phone] Allergies Active Allergy Reactions Criticality Noted Date [...] age to complete this topic Care Teams Photographer Finish Relationship Specialty Start Date End Date Elio Taveras MD [address] [address] PCP - General 06/26/22
--- OUTSIDE RECORDS SUMMARY | 2024-08-25 07:48 | XMS_ITS | Clinical Summary ---
Author Organization [address] Address [address] [place] [phone] Phone Care Team Providers Care Tool Filer Hand Name Role Phone Elio Taveras MD Primary Care Provider [phone] Encounters Date Type Department Care Team Description 07/15/2024 Lab Requisition [facility] - Main Lab [address] [facility] [place] [address] Elio Taveras MD Postprocedural hypothyroidism; [...] age to complete this topic Meningococcal B Vaccine Aged Out No l onger eligible based on patient's age to complete [...] mg/dL LAB CHEMISTRY METHOD 07/27/2024 1:50 PM [facility] Triglycerides 102 0 - 150 mg/dL LAB CHEMISTRY METHOD 07/27/2024 1:50 PM [facility] HDL 78 >=40 mg/dL LAB CHEMISTRY METHOD 07/27/2024 1:50 PM [facility] LDL Calculated 178(H) 0 - 100 mg/dL LAB CHEMISTRY METHOD 07/27/2024 1:50 PM [facility] VLDL Cholesterol Sha 20.4 mg/dL LAB CHEMISTRY METHOD 07/27/2024 1:50 PM [facility] Non HDL Chol. (LDL+VLDL) 198(H) <145 mg/dL LAB CHEMISTRY METHOD 07/27/2024 1:50 PM [facility] Chol/HDL Ratio 3.5 0.0 - 4.4 LAB CHEMISTRY METHOD 07/27/2024 1:50 PM [facility] Blood Venous blood specimen / Unknown Venipuncture / Unknown 07/27/2024 9:56 AM EDT 07/27/2024 11:40 AM EDT us Elio Taveras MD LAB BLOOD ORDERABLES Final Res ult Performing Organization Address [facility] Co de Phone Number [facility] [address] [place] [address], [place] [phone] * ELIZABETH IFA with titer and pattern (07/27/2024 9:56 AM EDT) [facility] ELIZABETH Negative Negative 07/28/2024 12:37 PM EDT [facility] Blood Venous blood specimen / Unknown Venipuncture / Unknown 07/27/2024 9:56 AM EDT 07/27/2024 11:39 AM EDT us Elio Taveras MD LAB BLOOD ORDERABLES Final Res ult Performing Organization Address [facility] Co de Phone Number [facility] [address] [place] [address], [place] [phone] * Sedimentation rate (07/27/2024 9:56 AM EDT) [facility] Sed Rate 14 0 - 30 mm/hr LAB HEMETOLOGY METHOD 07/27/2024 11:58 AM EDT [facility] Blood Venous blood specimen / Unknown Venipuncture / Unknown 07/27/2024 9:56 AM EDT 07/27/2024 11:44 AM EDT us Elio Taveras MD LAB BLOOD ORDERABLES Final Res ult Performing Organization Address [facility]/ZIP Co de Phone Number [facility] [address] [place] [address], [place] [phone] * Rheumatoid factor (07/27/2024 9:56 AM EDT) [facility] Rheumatoid Factor <10.0 <15.0 I Unit/mL LAB CHEMISTRY METHOD 07/27/2024 1:50 PM EDT [facility] Blood Venous blood specimen / Unknown Venipuncture / Unknown 07/27/2024 9:56 AM EDT 07/27/2024 11:40 AM EDT Elio Taveras MD LAB BLOOD ORDERABLES Final Res ult Performing Organization Address City/[facility]/ZIP Co de Phone Number [facility] [address] [place] [address], [place] [phone] * C-reactive protein (07/27/2024 9:56 AM EDT) [facility] C-Reactive Protein <0.29 <=0.50 mg/dL LAB CHEMISTRY METHOD 07/27/2024 1:50 PM EDT [facility] Blood Venous blood specimen / Unknown Venipuncture / Unknown 07/27/2024 9:56 AM EDT 07/27/2024 11:40 AM EDT us Elio Taveras MD LAB BLOOD ORDERABLES Final Res ult Performing Organization Address [facility] Co de Phone Number [facility] [address] [place] [address], [place] [phone] * Thyroid stimulating hormone (07/27/2024 9:56 AM EDT) Pathologist [facility] TSH 3.77 0.40 - 4.00 mcIU/mL LAB CHEMISTRY METHOD 07/27/2024 1:36 PM EDT [facility] Blood Venous blood specimen / Unknown Venipuncture / Unknown 07/27/2024 9:56 AM EDT 07/27/2024 11:40 AM EDT us Elio Taveras MD LAB BLOOD ORDERABLES Final Res ult Performing Organization Address City/[facility]/ZIP Co de Phone Number [facility] [address] [place] [address], [place] [phone] * (ABNORMAL) Comprehensive metabolic panel (07/27/2024 9:56 AM EDT) Sodium 140 133 - 145 mmol/L LAB CHEMISTRY METHOD 07/27/2024 1:50 PM [facility] Potassium 4.5 3.5 - 5.5 mmol/L LAB CHEMISTRY METHOD 07/27/2024 1:50 PM [facility] Chloride 105 96 - 110 mmol/L LAB CHEMISTRY METHOD 07/27/2024 1:50 PM [facility] CO2 26 21 - 32 mmol/L LAB CHEMISTRY METHOD 07/27/2024 1:50 PM [facility] Anion Gap 9 3 - 11 LAB CHEMISTRY METHOD 07/27/2024 1:50 PM [facility] Glucose 79 70 - 100 mg/dL LAB CHEMISTRY METHOD 07/27/2024 1:50 PM [facility] BUN 26(H) 5 - 25 mg/dL LAB CHEMISTRY METHOD 07/27/2024 1:50 PM [facility] Creatinine 0.89 0.50 - 1.10 mg/dL LAB CHEMISTRY METHOD 07/27/2024 1:50 PM [facility] eGFR 77 >=60 mL/min/1. 73m2 LAB CHEMISTRY METHOD 07/27/2024 1:50 PM [facility] Comment:Calculation based on the??Chronic Kidney Disease Epidemiology Collaboration (CKD-EPI) equation refit??without adjustment for race. BUN/Creatinine Ratio 29.2 LAB CHEMISTRY METHOD 07/27/2024 1:50 PM [facility] Calcium 9.3 8.5 - 10.5 mg/dL LAB CHEMISTRY METHOD 07/27/2024 1:50 PM [facility] AST (SGOT) 32 10 - 42 unit/L LAB CHEMISTRY METHOD 07/27/2024 1:50 PM EDT [facility] ALT (SGPT) 35 10 - 60 unit/L LAB CHEMISTRY METHOD 07/27/2024 1:50 PM EDT [facility] Alkaline Phosphatase 108 42 - 121 unit/L LAB CHEMISTRY METHOD 07/27/2024 1:50 PM EDT [facility] Total Protein 8.0 6.0 - 8.0 g/dL LAB CHEMISTRY METHOD 07/27/2024 1:50 PM EDT [facility] Albumin 4.4 3.2 - 5.0 g/dL LAB CHEMISTRY METHOD 07/27/2024 1:50 PM EDT [facility] Total Bilirubin 1.2 0.0 - 1.4 mg/dL LAB CHEMISTRY METHOD 07/27/2024 1:50 PM EDT [facility] Blood Venous blood specimen / Unknown Venipuncture / Unknown 07/27/2024 9:56 AM EDT 07/27/2024 11:40 AM EDT us Elio Taveras MD LAB BLOOD ORDERABLES Final Res ult [facility] [address] [place] [address], from Last 3 Months Insurance [facility] Care Teams Tool Filer Hand Relationship Specialty Start Date End Date Elio Taveras MD [address] [place] [address] PCP - General Internal Medicine 04/21/24
--- OUTSIDE RECORDS SUMMARY | 2024-08-25 07:51 | XMS_ITS | Encounter Summary ---
Author Organization [facility] Address [address] [place] [address] Care Team Providers Care Electronics Installer Name Role Phone Elio Taveras MD Primary Care Provider [phone] Encounter Details Date Type Department Care Team (Latest Contact Info) Description 07/15/2024 Lab Requisition [facility] - Main Lab [address] [facility] [place] [address] Elio Taveras MD [address] [place], [place] [id number] Postprocedural hypothyroidism; Unspecified osteoarthritis, unspecified site; Essential [...] unspecified documented in this encounter Care Teams Electronics Installer Relationship Specialty Start Date End Date Elio Taveras MD [address] [place] [address] PCP - General Internal Medicine 04/21/24 documented as of this encounter
--- NOTE | 2024-08-25 07:54 | A.OFFVIS_ITS ---
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 She is doing well with federal judicial law clerk concerns: vaginal itching, burning, no pelvic pain or urinary symptoms. No new soaps laundry detergents or sent to toilet paper. Bilateral breast tenderness w/nipple pain, no discharge, last week, now resolved. Does not have caffeine. Currently not sexually active. LMP over 12 months ago. STI testing offered; she declined. Attempting to eat a healthy diet with calcium and vitamin D and stays active with exercise. Last pap smear; 2023. Last mammogram; 2024. Adopted. 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 Sexual orientation: Straight/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 Gender identity: Female Female Reproductive History Menstrual Menopause type: natural Total pregnancies: 3 Full term: 3 Number of Living Children: 3 Date of last pap smear: 08/21/23 (neg pap and hpv) Date of Mammogram: 08/14/24 (Birad 1) Review of Systems Const All systems reviewed & are unremarkable except as noted in HPI and below Reports as per HPI Eyes Reports no additional complaints ENT Reports no additional complaints Card Reports no additional complaints Resp Reports no additional complaints GI Reports as per HPI and Reports no additional complaints Reports as per HPI Musc Reports no additional complaints Skin/Breast Reports as per HPI Neuro Reports no additional complaints Psych Reports no additional complaints Endo Reports no additional complaints Alfie/Lymph Reports no additional complaints Aller/Immun Reports no additional complaints Physical Exam Vital Signs: Last Vital Signs BP 90/60 08/25/24 07:55 BMI result Body Mass Index 23.0 Const General: cooperative, healthy appearing, no acute distress, well developed and alert Orientation/consciousness: patient oriented x3 HEENT Head: Yes normal to inspection Eyes General: appearance normal, both eyes and all related structures Neck Neck: Yes normal visual inspection Thyroid: Thyroid normal Chest Chest palpation & inspection: normal inspection of the chest and other (no pucke ring, dimpling, peau de orange, retraction, discharge, masses) Breast/axilla inspection: normal inspection of the breasts Breast/axilla palpation: normal palpation of the breasts Resp Effort & Inspection: normal respiratory effort GI Inspection: Yes normal to inspection Palpation (GI): Soft to palpation Rectal Exam - Female: deferred General: Yes bladder normal to palpation External Female Exam: normal external appearance and normal appearance of the urethra Speculum Exam - Vagina: normal appearance of the vagina, normal palpation and normal vaginal discharge Speculum Exam - Cervix: normal appearance of the cervix and normal palpation Bimanual exam- vagina & uterus: normal bimanual exam, normal palpation, uterine size normal, bladder normal to palpation, normal palpation and non-tender Bimanual Exam- Adnexa, other: no masses Skin General skin exam: no rashes or lesions noted Rashes: no rashes Neuro General: patient oriented x3 Cognition (Neuro): normal cognition Extrem General: Yes normal to inspection Psych Attitude: cooperative Thought process: Normal thought process present Results AMB Urinalysis, Automated UA Leukoctes 0.5 Brianda/uL Last Edit by BONNIE Marc on 08/25/24 08:1 0 UA Nitrite Negative Last Edit by BONNIE Marc on 08/25/24 08:10 UA Urobilinogen 0 mg/dL Last Edit by BONNIE Marc on 08/25/24 08:1 0 UA Protein 0 mg/dL Last Edit by BONNIE Marc on 08/25/24 08:10 UA pH 6.5 Last Edit by BONNIE Marc on 08/25/24 08:10 UA Blood 0 Ishan/uL Last Edit by BONNIE Marc on 08/25/24 08:10 UA Specific Spring 1.010 Last Edit by BONNIE Marc on 08/25/24 08:10 UA Ketone Negative Last Edit by BONNIE Marc on 08/25/24 08:10 UA Bilirubin 0 mg/dL Last Edit by Brittani Caldwell BONNIE on 08/25/24 08:10 UA Glucose mg/dL Last Edit by Brittani Caldwell BONNIE on 08/25/24 08:10 Assessment & Plan Assessment & Plan (1) Encounter for annual routine gynecological examination: Code(s): Z01.419 - Encounter for gynecological examination (general) (routine) without abnormal findings Category: Medical (2) Vaginal itching: Code(s): N89.8 - Other specified noninflammatory disorders of vagina Plan: Discussed normal findings on exam today. BV panel obtained, await results for plan of care. Avoid any irritants, scented products. Total time I personally spent on visit and management today: ? 5 minutes. Time spent included review of pertinent office notes in the electronic health record; review of laboratory and imaging results; review of personal family medical history; performing physical exam; discussing diagnosis and plan of care with the patient; documenting the encounter in the EMR. Plan Discussed: Current recommendations for pap smears per ASCCP guidelines. Breast awareness, periodic self breast exams and yearly mammogram. Monitor for breast pain if returns in persist to follow up in office. Maintain a healthy lifestyle, well balanced diet including Calcium 1,200 mg and Vitamin D 600 IU daily, and routine exercise. Use of condoms for STI prevention if indicated. Contact the office with any postmenopausal bleeding. Patient verbalizes understanding and agrees to the plan of care. She was given opportunity to ask questions and all questions were answered to the best of my ability. RTO in 1 year for annual federal judicial law clerk exam. This note is constructed using voice recognition software. While every effort has been made to ensure accuracy, account service associate errors may have been included. Orders: Orders AMB Urinalysis Automated Today R30.0 - Dysuria Bacterial Vaginosis Panel Today N89.8 - Other specified noninflammatory disorders of vagina Coding Level of Care Code Est Pt Level 2 (06301) Est Pt Prev Care 40-64y(43691) Diagnoses Encounter for annual routine gynecological examination Z01.419 Vaginal itching N89.8
[2024-08-25 07:55] VITALS: BP 90/60; BMI 23.0
== END 2024-08-25 08:39 | disposition home or self-care (01) ==
LOC: HO.HWS 07:45
PROVIDERS: PCP Internal Medicine; Visit Provider Advanced Practice Midwife
DX: Z01.419 Encounter for gynecological examination (general) (routine) without abnormal findings (principal); N89.8 Other specified noninflammatory disorders of vagina; R30.0 Dysuria
CPT/HCPCS: 99212; 99396; 99459

== ENCOUNTER 2024-11-18 09:04 | Outpatient (REF) | payer OTHER, SELFPAY ==
--- NOTE | ~2024-11-18 | FL_ITS ---
EXAMINATION: XR FLUOROSCOPY UPPER GI WITH AIR CLINICAL INFORMATION: Gastroesophageal reflux disease without esophagitis. Patient on omeprazole or medications COMPARISON: None available. TECHNIQUE: Routine upper GI air contrast study was performed in upright and lying position. FINDINGS: Following oral administration of thick barium and effervescent granules is normal propagation bolus from the oral cavity through the pharynx, esophagus into stomach without any evidence of obstruction, narrowing or stricture. No extrinsic compression seen. On placing patient supine and prone lying, the course, caliber and peristalsis of the stomach is normal. There are small erosive changes in the gastric fundus, body and the antrum. Moderate gastric secretions seen. There is moderate to large gastroesophageal reflux noted. The duodenal bulb and the sweep is normal. FLUOROSCOPY TIME: 1 minute 44 seconds DOSE AREA PRODUCT: 27.7 uGy-m2 (microgray-meter squared) FL/FL upper GI w air IMPRESSION: Hyperacidity with with increased secretions. Multiple gastric erosions seen throughout the fundus, body and antrum of the stomach. Moderate gastroesophageal reflux without hiatal hernia. Electronically signed by: Sohan Montesinos MD 11/18/2024 02:29 PM EDT
--- OUTSIDE RECORDS SUMMARY | 2024-11-18 09:15 | XMS_ITS | Clinical Summary ---
Author Organization [facility] Address [address] [place] [address] Care Team Providers Care Tank Filler Name Role Phone Elio Taveras MD Primary Care Provider [phone] Allergies Active Allergy Reactions Criticality Noted Date Comments Aspirin Unknown/Patient and Family Unable to Define Medium 06/26/2022 Medications dicyclomine (BENTYL) 10 MG capsule Take 1 capsule (10 mg total) by mouth 4 (four) times a day. 20 capsule 3 Active ondansetron (ZOFRAN-ODT) 4 MG disintegrating tablet Take 1 tablet (4 mg total) by mouth 3 times daily (every 8 hours) as needed for nausea or vomiting. Place tablet on tongue to dissolve. 10 tablet 3 Active Social History Tobacco Use Types Packs/Day Years Used Date Smoking Tobacco: Never Assessed Tobacco Cessation:Counseling Given: Not Answered Comments Unknown Sex and Gender Information Value Date Recorded Sex Assigned at Female 06/26/2022 9:16 AM EST Legal Sex Female 7:00 PM EST Gender Identity Female 06/26/2022 9:16 AM EST Sexual Orientation Choose not to disclose 2022 9:16 AM EST Last Filed Vital Signs Vital Sign Reading Time Taken Comments Blood Pressure 98/57 06/26/2022 9:12 AM EST Pulse 88 06/26/2022 9:12 AM EST Temperature 36.4 C (97.6 F) 06/26/2022 9:12 AM EST Respiratory Rate 16 06/26/2022 9:12 AM EST [...] (1 of 3 - 19+ 3-dose series) 09/17 Pap Smear (Ages 21-65) 1990 Mammogram 2009 Colonoscopy 2014 Pneumococcal Vaccines 50+ (1 of 1 - PCV) 10/05/2019 Zoster (Shingles) Vaccine (1 of 2) 10/05/2019 COVID-19 Vaccine (1 - 2023- season) 2024 Influenza Vaccine 12/18/2024 Insurance [employer] Care Teams Tank Filler Relationship Specialty Start Date End Date Elio Taveras MD [address] [address] PCP - General 06/26/22
--- OUTSIDE RECORDS SUMMARY | 2024-11-18 09:15 | XMS_ITS ---
Author Name [facility] Organization Unknown Encounters Encounter Type Encounter Reason Primary Diagnosis Location Date Emergency Unspecified abdo trudi pain [place] 06/26/2022 Care Team Organization Name Specialty Phone Email Start Date End Da te [place] [facility] 06/26/2022 023 [facility] 06/26/2022
--- OUTSIDE RECORDS SUMMARY | 2024-11-18 09:15 | XMS_ITS | Clinical Summary ---
Author Organization [address] Address [address] [place] [id number] Phone Care Team Providers Care Cleaning Porter Name Role Phone Elio Taveras MD Primary Care Provider [phone] Social History Tobacco Use Types Packs/Day Years [...] Influencers of Health Screening 04/22/2022 COVID-19 Vaccine ( - 2023-2 5 season) 2024 Influenza Vaccine (Season Ended) 2025 Hypertension/CHF/CAD Annual BMP Blood Test 07/27/2025 07/27/2024, [...] Procedure Name Priority Date/Time Associated Diagnosis Comments COMPREHENSIVE METABOLIC PANEL Routine 07/27/2024 9:56 AM EDT Essential hypertension, malignant Senile arthritis Routine general medical examination at a health care facility Hyperlipemia Atrophic arthritis ([facility] V24, [facility] V28) Postsurgical hypothyroidism LIPID PANEL WITH REFLEX TO DIRECT LDL Routine 07/27/2024 9:56 AM EDT Essential hypertension, malignant Senile arthritis Routine general medical examination at a health care facility Hyperlipemia Atrophic arthritis (CMS/HCC V24, CMS/[facility] V28) Postsurgical hypothyroidism from Last 3 Months or Most Recently Relevant to Health Maintenance Results * (ABNORMAL) Lipid panel with reflex to direct LDL (07/27/2024 9:56 AM EDT) Cholesterol 276(H) 0 - 200 mg/dL LAB CHEMISTRY METHOD 07/27/2024 1:50 PM EDT [facility] Triglycerides 102 0 - 150 mg/dL LAB CHEMISTRY METHOD 07/27/2024 1:50 PM EDT [facility] HDL 78 >=40 mg/dL LAB CHEMISTRY METHOD 07/27/2024 1:50 PM EDT [facility] LDL Calculated 178(H) 0 - 100 mg/dL LAB CHEMISTRY METHOD 07/27/2024 1:50 PM EDT [facility] VLDL Cholesterol Sha 20.4 mg/dL LAB CHEMISTRY METHOD 07/27/2024 1:50 PM EDT [facility] Non HDL Chol. (LDL+VLDL) 198(H) <145 mg/dL LAB CHEMISTRY METHOD 07/27/2024 1:50 PM EDT [facility] Chol/HDL Ratio 3.5 0.0 - 4.4 LAB CHEMISTRY METHOD 07/27/2024 1:50 PM EDT [facility] Blood Venous blood specimen / Unknown Venipuncture / Unknown 07/27/2024 9:56 AM EDT 07/27/2024 11:40 AM EDT us Elio Taveras MD LAB BLOOD ORDERABLES Final Res ult [facility] [address] [place] [address], * (ABNORMAL) Comprehensive metabolic panel (07/27/2024 9:56 [...] [facility] Comment:Calculation based on the Chronic Kidney Disease Epidemiology Collaboration (CKD-EPI) equation refit without adjustment for race. BUN/Creatinine Ratio 29.2 LAB CHEMISTRY METHOD 07/27/2024 1:[address] [facility] Calcium 9.3 8.5 - 10.5 mg/dL LAB CHEMISTRY METHOD 07/27/2024 1:[address] [facility] AST (SGOT) 32 10 - 42 unit/L LAB CHEMISTRY METHOD 07/27/2024 1:[address] [facility] ALT (SGPT) 35 10 - 60 unit/L LAB CHEMISTRY METHOD 07/27/2024 1:[address] [facility] Alkaline Phosphatase 108 42 - 121 unit/L LAB CHEMISTRY METHOD 07/27/2024 1:[address] [facility] Total Protein 8.0 6.0 - 8.0 g/dL LAB CHEMISTRY METHOD 07/27/2024 1:[address] [facility] Albumin 4.4 3.2 - 5.0 g/dL LAB CHEMISTRY METHOD 07/27/2024 1:[address] [facility] Total Bilirubin 1.2 0.0 - 1.4 mg/dL LAB CHEMISTRY METHOD 07/27/2024 1:[address] [facility] Blood Venous blood specimen / Unknown Venipuncture / Unknown 07/27/2024 9:56 AM EDT 07/27/2024 11:40 AM EDT us Elio Taveras MD LAB BLOOD ORDERABLES Final Res ult [facility] [place] [facility] [address] [place] [address], from Last 3 Months or Most Recently Relevant to Health Maintenance Insurance [facility] Care Teams Cleaning Porter Relationship Specialty Start Date End Date Elio Taveras MD [address] [place] [address] PCP - General Internal Medicine 04/21/24
== END 2024-11-18 09:05 | disposition home or self-care (01) ==
LOC: HO.XRAY 09:04
PROVIDERS: PCP Internal Medicine; Visit Provider Internal Medicine
DX: R10.13 Epigastric pain (principal); K21.9 Gastro-esophageal reflux disease without esophagitis
CPT/HCPCS: 74246

== ENCOUNTER → 2024-11-18 09:06 | Outpatient (BNV) | payer OTHER, SELFPAY | PROVIDERS: PCP Internal Medicine; Visit Provider Radiology Diagnostic Radiology | DX: K21.9 Gastro-esophageal reflux disease without esophagitis (principal) | CPT/HCPCS: 74246 ==

== ENCOUNTER 2024-11-23 11:24 | Outpatient (AMB) | payer OTHER, SELFPAY ==
--- NOTE | 2024-11-23 11:27 | MHC.OFFVIS ---
Vital Signs 11/23/24 11:33 Height 5 ft 4 in Weight 132 lb BMI 22.7 BP 114/64 Blood Pressure Location Rt brachial Position Sitting Pulse 74 Pulse Source Pulse Oximeter Pulse Oximetry (%) 99 Oxygen Delivery Method Room Air Intake Visit Reasons: 1 Yr Follow Up Postpranial abd. pain Intake Note: ESTABLISHED PATIENT for abd pain mgmt, 1 YR FUV. Chief Complaint; Pt denies any significant changes or concerns since last visit. Meds still working OK. Pt does want to review BA FL from last week as she has questions regarding the results. [employer] Required: No Accompanied by: Self / Same As Patient Allergies aspirin (Aspirin) Allergy (Mild, Verified 11/23/24 11:27) UPSET STOMACH, RASH HPI HPI 1 Yr Follow Up Postpranial abd. pain: Details: LAST VISIT: Postprandial epigastric pain IBS (irritable bowel syndrome) Constipation Postprandial abdominal pain in right upper quadrant Abdominal pain, LUQ (left upper quadrant) GERD (gastroesophageal reflux disease) Plan Patient will continue taking Dulcolax daily. May use Mag citrate as needed. Patient was encouraged to increase fluid intake and activity to promote better bowel motility. Patient will start taking Nexium every morning half an hour before breakfast. Avoid dietary triggers and late night snacking. Staying upright for minimal 3 hours after meals discussed with patient. Patient will be sent for upper GI series to evaluate for reflux, hiatal hernia, gastritis. She is complaining of epigastric pain and feeling of swelling and tenderness postprandially. I will see patient in 4 months, sooner on as needed basis. Patient is agreeable to this plan and verbalizes understanding of instructions. She was given the opportunity to ask questions and all questions answered. ? Thank you for me to participate in her care Orders FL upper GI w Ba Swallow Today K21.9, R10.13 New pantoprazole take one tablet half an hour before breakfast 40 mg PO DAILY 30 tabs 3RF K21.9 magnesium citrate (Citrate of Magnesia oral) 150 mL PO DAILY PRN 296 mL 5RF constipation K59.00 bisacodyl (Dulcolax (bisacodyl)) 10 mg (2 x 5 mg) PO BEDTIME 180 tabs 4RF Discontinued bisacodyl (Dulcolax (bisacodyl)) Discontinued Reason: Doctor's Order 10 mg (2 x 5 mg) PO BEDTIME 180 tabs 4RF TODAY'S VISIT: Patient is here today for follow-up and to discuss upper GI series with barium swallow. Patient reports that since starting pantoprazole and now taking sucralfate twice a day she has been doing better. Patient however is stressed out about the results from her study. She states that she was unable to eat anything this past weekend as she was afraid to eat anything. Patient read the results and thinks she has severe ulcers in her stomach. Results discussed with patient in detail. Education provided.. Patient denies any nausea or vomiting. Occasional epigastric pain. Patient is following low FODMAP diet religiously. Reports to be constipated and only able to go the bathroom when she takes Dulcolax. 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 Sexual orientation: Straight/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 Gender identity: Female Review of Systems Const Denies weight gain and Denies weight loss ENT Reports no additional complaints, Denies dysphagia and Denies odynophagia Card Reports no additional complaints Resp Reports no additional complaints GI Reports abdominal pain (Epigastric), Denies belching, Denies melena, Reports bloating, Denies change in bowel habits, Reports constipation, Denies dysphagia, Denies excessive flatus, Denies dyspepsia, Reports heartburn, Denies diarrhea, Denies loose stools, Denies nausea, Denies odynophagia and Denies vomiting Reports no additional complaints Musc Reports no additional complaints Neuro Reports no additional complaints Psych Reports no additional complaints Endo Reports no additional complaints Physical Exam Vital Signs: Last Vital Signs Pulse 74 11/23/24 11:33 BP 114/64 11/23/24 11:33 Pulse Ox 99 11/23/24 11:33 Oxygen Delivery Method Room Air 11/23/24 11:33 BMI result Body Mass Index 22.7 Const General: healthy appearing, no acute distress and well developed Nutritional Appearance: well nourished Orientation/consciousness: patient oriented x3 Resp Effort & Inspection: normal respiratory effort, able to speak in complete sentences, no tracheal deviation and symmetric chest movement Auscultation: clear to auscultation bilaterally Cardio Rate: regular rate GI Inspection: Yes normal to inspection and No distended Palpation (GI): Soft to palpation, not firm, nontender and No hepatosplenomegaly present Auscultation: normal bowel sounds General: Yes no CVA tenderness Back/Spine/Pelvis Back: no CVA tenderness Skin General skin exam: elasticity normal, turgor normal and dry skin Neuro General: patient oriented x3 Psych Appearance: grossly normal Mental Status: mental status grossly normal Results Reviewed Results Reviewed: IMPRESSION: Hyperacidity with with increased secretions. Multiple gastric erosions seen throughout the fundus, body and antrum of the stomach. Moderate gastroesophageal reflux without hiatal hernia. Assessment & Plan Assessment & Plan (1) GERD (gastroesophageal reflux disease): Code(s): K21.9 - Gastro-esophageal reflux disease without esophagitis Category: Medical Qualifiers: Esophagitis presence: esophagitis presence not specified Qualified Code(s): K21.9 - Gastro-esophageal reflux disease without esophagitis (2) Postprandial epigastric pain: Code(s): R10.13 - Epigastric pain Category: Medical (3) Chronic idiopathic constipation: Code(s): K59.04 - Chronic idiopathic constipation Category: Medical (4) Postprandial abdominal bloating: Code(s): R14.0 - Abdominal distension (gaseous) Plan Continue pantoprazole every morning half an hour before breakfast. Continue sucralfate twice a day in the afternoon and at bedtime. Continue avoiding dietary triggers. Patient will be sent for upper endoscopy. Message sent to Surgical scheduled to book 1 soon. Continue taking Dulcolax daily. Increase fluid intake and activity to promote better bowel motility. Colonoscopy was done in 2020 1 hyperplastic polyp found and repeat colonoscopy in 10 years recommended. No family history of CRC. Patient will follow-up in the office after the procedure, sooner on as needed basis. She is agreeable to this plan and verbalizes understanding of instructions. She was given the opportunity to ask questions and all questions answered. Thank you for allowing me to participate in her care Medications: Refilled sucralfate 1 g PO BID 180 tabs 1RF 90 days R19.7 - Diarrhea, unspecified Coding Level of Care Code Est Pt Level 4 (81679) Complex EM visit Add On G2211 Diagnoses Gastroesophageal reflux disease, unspecified whether esophagitis present K21.9 Esophagitis presence: esophagitis presence not specified Postprandial epigastric pain R10.13 Chronic idiopathic constipation K59.04 Postprandial abdominal bloating R14.0 Time Spent (min) 40 Comment 25 minutes spent with patient and additional 15 minutes spent reviewing her records
[2024-11-23 11:33] VITALS: BP 114/64; PULSE 74; O2SAT 99; BMI 22.7
--- OUTSIDE RECORDS SUMMARY | 2024-11-23 12:20 | XMS_ITS | Clinical Summary ---
Author Organization [facility] Address [address] [place] [address] Care Team Providers Care Vendor Management Associate Name Role Phone Elio Taveras MD Primary Care Provider [phone] Allergies Active Allergy Reactions Criticality Noted Date [...] 12/18/2024 Insurance [employer] Care Teams Vendor Management Associate Relationship Specialty Start Date End Date Elio Taveras MD [address] [address] PCP - General 06/26/22
--- OUTSIDE RECORDS SUMMARY | 2024-11-23 12:20 | XMS_ITS | Encounter Summary ---
Author Organization [facility] Address [id number] [place] [id number] Care Team Providers Care Answering Service Operator Name Role Phone Elio Taveras MD Primary Care Provider [phone] Encounter Details Date Type Department Care Team (Latest Contact Info) Description 07/15/2024 Lab Requisition [facility] - Main Lab [address] [facility] [place] [address] Elio Taveras MD [address] [place], [place] [id number] Postprocedural hypothyroidism; Unspecified osteoarthritis, unspecified site; Essential (primary) hypertension; Rheumatoid arthritis, unspecified (CMS/HCC V24, CMS/HCC V28); Hyperlipidemia, unspecified Social History Tobacco Use Types [...] hypertension Unspecified essential hypertension Rheumatoid arthritis, unspecified (CMS/[facility] V24, [facility] V28) Hyperlipidemia, unspecified documented in this encounter Care Teams Answering Service Operator Relationship Specialty Start Date End Date Elio Taveras MD [address] [place] [id number] PCP - General Internal Medicine 04/21/24 documented as of this encounter
== END 2024-11-23 12:24 | disposition home or self-care (01) ==
LOC: HO.HGI 11:24
PROVIDERS: PCP Internal Medicine; Visit Provider Nurse Practitioner Family
DX: K21.9 Gastro-esophageal reflux disease without esophagitis (principal); R10.13 Epigastric pain; K59.04 Chronic idiopathic constipation; R14.0 Abdominal distension (gaseous)
CPT/HCPCS: 99214

== ENCOUNTER 2024-12-25 08:01 | Day surgery (SDC) | payer OTHER, SELFPAY ==
--- OUTSIDE RECORDS SUMMARY | 2024-12-16 14:47 | XMS_ITS | Clinical Summary ---
Author Organization [facility] Address [address] [place] [address] Care Team Providers Care Aircraft Engine Dismantler Name Role Phone Elio Taveras MD Primary Care Provider [phone] Allergies Active Allergy Reactions Criticality Noted Date [...] 12/18/2024 Insurance [employer] Care Teams Aircraft Engine Dismantler Relationship Specialty Start Date End Date Elio Taveras MD [address] [phone] PCP - General 06/26/22
--- OUTSIDE RECORDS SUMMARY | 2024-12-16 14:47 | XMS_ITS | Clinical Summary ---
Author Organization [address] Address [address] [place] [phone] Phone Care Team Providers Care Facilities Maintenance Technician Name Role Phone Elio Taevras MD Primary Care Provider [phone] Encounters Date Type Department Care Team Description 07/15/2024 Lab Requisition [facility] - Main Lab [address] [facility] [place] [address] Elio Taveras MD Postprocedural hypothyroidism; Unspecified osteoarthritis, unspecified site; Essential (primary) hypertension; Rheumatoid arthritis, unspecified (CMS/HCC V24, CMS/HCC V28); Hyperlipidemia, unspecified from Last 3 Months Social [...] Years (1 of 2 - PCV) 1988 Cervical Cancer Screening: Pap Smear 1990 Zoster Vaccines (2 of 3) 02/02/2021 12/08/2020 Colorectal Cancer Screening: Colonoscopy 04/22/2022 HIV Screening 04/22/2022 Hepatitis C Screening 04/22/2022 Social Influencers of Health Screening 04/22/2022 COVID-19 Vaccine ( - season) 2024 Depression Screening 05/20/2024 Influenza Vaccine (#1) 2025 Hypertension/CHF/CAD Annual BMP Blood Test 12/11/2025 12/11/2024, 07/27/2024, 06/26/2022, Additional history exists Cholesterol Screening (Lipid Panel) 12/11/2029 12/11/2024, 07/27/2024 HIB Vaccines Aged Out No longer [...] 20 months Aged Out No longer eligible based on patient's age to complete this topic Varicella Vaccines Aged Out No longer eligible based on patient's age to complete this topic Procedures Procedure Name Priority Date/Time Associated Diagnosis Comments LIPID PANEL WITH REFLEX TO DIRECT LDL Routine 12/11/2024 10:33 AM EDT Hyperlipidemia, unspecified ELIZABETH IFA WITH TITER AND PATTERN Routine 12/11/2024 10:33 AM EDT SEDIMENTATION RATE Routine 12/11/2024 10 :33 AM EDT Unspecified osteoarthritis, unspecified site RHEUMATOID FACTOR Routine 12/11/2024 10: 33 AM EDT Rheumatoid arthritis, unspecified ([facility] V24, [facility] V28) COMPREHENSIVE METABOLIC PANEL Routine 12/11/2024 10:33 AM EDT Essential (primary) hypertension C-REACTIVE PROTEIN Routine 12/11/2024 10 :33 AM EDT Unspecified osteoarthritis, unspecified site THYROID STIMULATING HORMONE Routine 12/11/2024 10:33 AM EDT Postprocedural hypothyroidism from Last 3 Months Results * Lipid panel with reflex to direct LDL (12/11/2024 10:33 AM EDT) Cholesterol 148 0 - 200 mg/dL LAB CHEMISTRY METHOD 12/11/2024 12:25 PM EDT [facility] Triglycerides 81 0 - 150 mg/dL LAB CHEMISTRY METHOD 12/11/2024 12:25 PM EDT [facility] HDL 75 >=40 mg/dL LAB CHEMISTRY METHOD 12/11/2024 12:25 PM EDT [facility] LDL Calculated 57 0 - 100 mg/dL LAB CHEMISTRY METHOD 12/11/2024 12:25 PM EDT [facility] VLDL Cholesterol Sha 16.2 mg/dL LAB CHEMISTRY METHOD 12/11/2024 12:25 PM EDT [facility] Non HDL Chol. (LDL+VLDL) 73 <145 mg/dL LAB CHEMISTRY METHOD 12/11/2024 12:25 PM EDT [facility] Chol/HDL Ratio 2.0 0.0 - 4.4 LAB CHEMISTRY METHOD 12/11/2024 12:25 PM EDT [facility] Blood Venous blood specimen / Unknown Venipuncture / Unknown 12/11/2024 10:33 AM EDT 12/11/2024 11:15 AM EDT us Elio Taveras MD LAB BLOOD ORDERABLES Final Res ult [facility] [address] [place] [address], [place] [phone] * ELIZABETH IFA with titer and pattern (12/11/2024 10:33 AM EDT) Pathologist [facility] ELIZABETH Negative Negative 12/14/2024 12:27 PM EDT [facility] Blood Venous blood specimen / Unknown Venipuncture / Unknown 12/11/2024 10:33 AM EDT 12/11/2024 11:15 AM EDT Elio Taveras MD LAB BLOOD ORDERABLES Final Res ult Performing Organization Address City/[facility]/ZIP Co de Phone Number [facility] [address] [place] [address], [place] [phone] * Sedimentation rate (12/11/2024 10:33 AM EDT) Pathologist [facility] Sed Rate 24 0 - 30 mm/hr LAB HEMETOLOGY METHOD 12/11/2024 11:29 AM EDT [facility] Blood Venous blood specimen / Unknown Venipuncture / Unknown 12/11/2024 10:33 AM EDT 12/11/2024 11:16 AM EDT Elio Taveras MD LAB BLOOD ORDERABLES Final Res ult Performing Organization Address [facility] Co de Phone Number [facility] [address] [place] [address], [place] [phone] * Rheumatoid factor (12/11/2024 10:33 AM EDT) [facility] Rheumatoid Factor <10.0 <15.0 I Unit/mL LAB CHEMISTRY METHOD 12/11/2024 12:20 PM EDT [facility] Blood Venous blood specimen / Unknown Venipuncture / Unknown 12/11/2024 10:33 AM EDT 12/11/2024 11:15 AM EDT Elio Taveras MD LAB BLOOD ORDERABLES Final Res ult Performing Organization Address City/[facility]/ZIP Co de Phone Number [facility] [address] [place] [address], [place] [phone] * C-reactive protein (12/11/2024 10:33 AM EDT) C-Reactive Protein <0.29 <=0.50 mg/dL LAB CHEMISTRY METHOD 12/11/2024 12:25 PM EDT [facility] Blood Venous blood specimen / Unknown Venipuncture / Unknown 12/11/2024 10:33 AM EDT 12/11/2024 11:15 AM EDT Elio Taveras MD LAB BLOOD ORDERABLES Final Res ult Performing Organization Address [facility]/ZIP Co de Phone Number [facility] [address] [place] [address], [place] [phone] * Thyroid stimulating hormone (12/11/2024 10:33 AM EDT) [facility] TSH 3.16 0.40 - 4.00 mcIU/mL LAB CHEMISTRY METHOD 12/11/2024 1:29 PM EDT [facility] Blood Venous blood specimen / Unknown Venipuncture / Unknown 12/11/2024 10:33 AM EDT 12/11/2024 11:15 AM EDT us Elio Taveras MD LAB BLOOD ORDERABLES Final Res ult Performing Organization Address [facility] Co de Phone Number [facility] [address] [place] [address], [place] [phone] * Comprehensive metabolic panel (12/11/2024 10:33 AM EDT) [facility] Sodium 140 133 - 145 mmol/L LAB CHEMISTRY METHOD 12/11/2024 12:25 PM EDT [facility] Potassium 4.3 3.5 - 5.5 mmol/L LAB CHEMISTRY METHOD 12/11/2024 12:25 PM EDT [facility] Chloride 107 96 - 110 mmol/L LAB CHEMISTRY METHOD 12/11/2024 12:25 PM EDT [facility] CO2 28 21 - 32 mmol/L LAB CHEMISTRY METHOD 12/11/2024 12:25 PM EDT [facility] Anion Gap 5 3 - 11 LAB CHEMISTRY METHOD 12/11/2024 12:25 PM [facility] Glucose 83 70 - 100 mg/dL LAB CHEMISTRY METHOD 12/11/2024 12:25 PM [facility] BUN 14 5 - 25 mg/dL LAB CHEMISTRY METHOD 12/11/2024 12:25 PM [facility] Creatinine 0.88 0.50 - 1.10 mg/dL LAB CHEMISTRY METHOD 12/11/2024 12:25 PM [facility] eGFR 78 >=60 mL/min/1. 73m2 LAB CHEMISTRY METHOD 12/11/2024 12:25 PM [facility] Comment:Calculation based on the Chronic Kidney Disease Epidemiology Collaboration (CKD-EPI) equation refit without adjustment for race. BUN/Creatinine Ratio 15.9 LAB CHEMISTRY METHOD 12/11/2024 12:25 PM [facility] Calcium 9.4 8.5 - 10.5 mg/dL LAB CHEMISTRY METHOD 12/11/2024 12:25 PM [facility] AST (SGOT) 33 10 - 42 unit/L LAB CHEMISTRY METHOD 12/11/2024 12:25 PM [facility] ALT (SGPT) 39 10 - 60 unit/L LAB CHEMISTRY METHOD 12/11/2024 12:25 PM [facility] Alkaline Phosphatase 94 42 - 121 unit/L LAB CHEMISTRY METHOD 12/11/2024 12:25 PM [facility] Total Protein 7.4 6.0 - 8.0 g/dL LAB CHEMISTRY METHOD 12/11/2024 12:25 PM [facility] Albumin 3.9 3.2 - 5.0 g/dL LAB CHEMISTRY METHOD 12/11/2024 12:25 PM [facility] Total Bilirubin 1.3 0.0 - 1.4 mg/dL LAB CHEMISTRY METHOD 12/11/2024 12:25 PM EDT [facility] Blood Venous blood specimen / Unknown Venipuncture / Unknown 12/11/2024 10:33 AM EDT 12/11/2024 11:15 AM EDT us Elio Taveras MD LAB BLOOD ORDERABLES Final Res ult [facility] [address] [place] [address], from Last 3 Months Insurance [facility] Care Teams Facilities Maintenance Technician Relationship Specialty Start Date End Date Elio Taveras MD [address] [place] [address] PCP - General Internal Medicine 04/21/24
[2024-12-22 14:15] VITALS: BMI 22.7
--- NOTE | 2024-12-24 09:11 | HO.ANESPROP2 ---
Documented by User: Argenis Caba NP 12/24/24 09:11 HPI - Anesthesia Eval Consult details Narrative: 54yo F for Upper Endoscopy PMFSH Active Problems Active Problems: All Active Problems Chronic idiopathic constipation (Acute) GERD (gastroesophageal reflux disease) (Acute) Postprandial epigastric pain (Acute) Encounter for annual routine gynecological examination (Acute) Pneumonia due to COVID-19 virus (Acute) Cough (Acute) Past Medical History Medical History Chronic idiopathic constipation GERD (gastroesophageal reflux disease) Postprandial epigastric pain Adopted Asthma History of ganglion cyst Family History Family History Other Adopted Family history of problems with anesthesia: No Surgical History Surgical History History of esophagogastroduodenoscopy (EGD) Hx of colonoscopy History of surgical removal of ganglion cyst History of Problems with Anesthesia: No Social History Social History Household Members: Children Alcohol intake: never Patient Tobacco Use Status: Never used Tobacco Use of substances other than those prescribed or required for medical reasons: No Advance Directives: No Advance Directives Information Provided: Yes Current occupational status: employed Current occupation: [employer] Sexual orientation: Straight/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 Gender identity: Female Meds Allergies Allergy/AdvReac Type Severity Reaction Status Date / Time aspirin (Aspirin) Allergy Mild UPSET Verified 11/23/24 11:27 STOMACH, RASH Home Medications ?Medication ?Instructions ?Recorded ?Confirmed ?Last Taken ?Type magnesium oxide 400 mg PO DAILY 02/03/24 12/22/24 Unknown History atorvastatin 40 mg tablet 40 mg PO DAILY 08/21/24 12/22/24 Unknown History Exam Height,Weight and Vital Signs: Height 5 ft 4 in Weight 59.874 kg Assessment and Plan Assessment Anesthesia Assessment: Chart Reviewed Final Anesthetic Review Family History of Problems with Anesthesia: No History of Problems with Anesthesia: No Documented by User: Brie Esteban MD 12/25/24 09:33 PMFSH Past Medical History Medical History Chronic idiopathic constipation GERD (gastroesophageal reflux disease) Postprandial epigastric pain Adopted Asthma History of ganglion cyst Family History Family History Other Adopted Surgical History Surgical History History of esophagogastroduodenoscopy (EGD) Hx of colonoscopy History of surgical removal of ganglion cyst Social History Social History Household Members: Children Alcohol intake: never Patient Tobacco Use Status: Never used Tobacco Use of substances other than those prescribed or required for medical reasons: No Advance Directives: No Advance Directives Information Provided: Yes Current occupational status: employed Current occupation: [employer] AD[employer]ER Sexual orientation: Straight/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 Gender identity: Female Meds Allergies Allergy/AdvReac Type Severity Reaction Status Date / Time aspirin (Aspirin) Allergy Mild UPSET Verified 11/23/24 11:27 STOMACH, RASH Home Medications ?Medication ?Instructions ?Recorded ?Confirmed ?Last Taken ?Type magnesium oxide 400 mg PO DAILY 02/03/24 12/22/24 Unknown History atorvastatin 40 mg tablet 40 mg PO DAILY 08/21/24 12/22/24 Unknown History Exam Airway Mallampati Class: I TM Dist: >3cm Neck ROM: Full Partial: Upper Loose/Missing/Broken Teeth: Yes and Upper Heart: RRR Lungs: CTA Assessment and Plan Assessment Anesthesia Assessment: Anesthesia Plan Discussed Final Anesthetic Review NPO: Yes ASA Class: II Final Preanesthetic Review: Meds/Allgs Chart Reviewed, Consent Obtained/Reviewed and Anes Risks/Benef Reviewed Patient Risk: Low Procedure Risk: Intermediate Anesthetic Plan Anesthetic Plan: MAC: Disposition: Standard PACU
--- NOTE | 2024-12-25 08:16 | MHC.SHP ---
Pre-Procedural Eval Section A - 24 Hr Update-Section A only Date of Service: 12/25/24 Section B - Complete if H&P > 30 days Chief Complaint: gerd Details of Present Illness: Chronic idiopathic constipation GERD (gastroesophageal reflux disease) Postprandial epigastric pain Adopted Asthma History of ganglion cyst Surgical History History of esophagogastroduodenoscopy (EGD) Hx of colonoscopy History of surgical removal of ganglion cyst Present Medications: see Short Stay Collaborative assessment Allergies: Allergies Allergy/AdvReac Type Severity Reaction Status Date / Time aspirin (Aspirin) Allergy Mild UPSET Verified 11/23/24 11:27 STOMACH, RASH Review of Systems Review of Systems Comment: Ten point ROS negative Exam Exam Comment: Gen appear: No acute distress HEENT: no icterus Chest: No overt resp distress Abd: soft, nontender, nondistended Psych: Stable affect, answering questions appropriately Neuro: A/Ox3 noted to move all extremities spontaneously Ext: no peripheral edema Plan Diagnosis/Plan: Unchanged I have reviewed the history and physical and performed a pertinent physical examination on my patient. No changes have occurred unless specified. Time Spent With Patient Time: Total time managing care of this patient today ____ minutes.
[2024-12-25 08:18] VITALS: BMI 22.5
[2024-12-25 08:27] VITALS: BP 116/61; PULSE 58; RESP 16; TEMP 36.6; O2SAT 100
[2024-12-25] MEDS: Lactated Ringers 1,000 ML 100 ML IVCONT (08:28)
[2024-12-25 09:45] VITALS: BP 107/57; PULSE 61; RESP 18; TEMP 36.8; O2SAT 99
--- NOTE | 2024-12-25 09:46 | P.OP_ITS ---
Operative Note Operative Note Date of Service: 12/25/24 Narrative: Procedure: Esophagogastroduodenoscopy Endoscopist: Kathy Musa MD Indication: Abnormal upper GI series Anesthesia Provider: Dr. Renae Esteban Anesthesia Type: MAC ?? EGD Procedure:?? The procedure, indications, preparation and potential complications were reviewed with the patient, who indicated understanding and gave written informed consent to proceed. A physical exam was performed. The endoscope was introduced through the mouth, and advanced to the second part of duodenum. The mucosa was carefully examined on slow withdrawal of the endoscope. The patient tolerated the procedure well. There were no immediate complications.? ? EGD Findings:? * Esophagus:? Normal mucosa noted in the entire esophagus. The Z line was at 41 cm. * Stomach:? Normal mucosa was noted in the stomach. Numerous polyps were noted in the fundus. Cold forceps biopsies were taken from the larger polyps for histology. Retroflexion was from the cardia. Cold forceps gastric biopsies were taken from the body and antrum. * Duodenum:? Normal mucosa was noted in the whole of the examined duodenum. ? EGD Impressions:? * Normal esophagus * Gastric polyps (biopsy) * Normal duodenum ?? Recommendations:?? * Follow biopsy results. Our office will call or send a letter with results within 7-10 days. * Cont pantoprazole 40 daily for another 4 weeks, and then decrease to 20 mg daily. * If H pylori +, patient will be prescribed eradication therapy followed by test of cure. * Avoid NSAIDs. Above has been reviewed with the patient.
[2024-12-25 10:00] VITALS: BP 117/67; PULSE 61; RESP 18; O2SAT 99
[2024-12-25 10:09] VITALS: BP 122/66; PULSE 60; RESP 17; TEMP 36.6; O2SAT 100
== END 2024-12-25 10:20 | disposition home or self-care (01) ==
PROVIDERS: PCP Internal Medicine; Visit Provider Internal Medicine
PROC: 0DJ08ZZ Inspection of Upper Intestinal Tract, Via Natural or Artificial Opening Endoscopic (ICD-10-PCS; CPT 43235; principal; 2024-12-25 09:10)
DX: R10.13 Epigastric pain (principal); R10.11 Right upper quadrant pain; R10.12 Left upper quadrant pain; R14.0 Abdominal distension (gaseous); K29.50 Unspecified chronic gastritis without bleeding; K21.9 Gastro-esophageal reflux disease without esophagitis; K31.7 Polyp of stomach and duodenum; K58.9 Irritable bowel syndrome, unspecified; K59.04 Chronic idiopathic constipation; J45.909 Unspecified asthma, uncomplicated; Z79.899 Other long term (current) drug therapy; Z88.6 Allergy status to analgesic agent; Z98.890 Other specified postprocedural states
CPT/HCPCS: 43239; 88305; 88342; J2003; J2704

== ENCOUNTER → 2024-12-25 08:01 | Outpatient (BNV) | payer OTHER, SELFPAY | PROVIDERS: PCP Internal Medicine; Visit Provider Internal Medicine | DX: K21.9 Gastro-esophageal reflux disease without esophagitis (principal); K31.7 Polyp of stomach and duodenum | CPT/HCPCS: 43239 ==

== ENCOUNTER 2025-01-15 11:12 | Outpatient (AMB) | payer OTHER, SELFPAY ==
--- NOTE | 2025-01-15 11:15 | MHC.OFFVIS ---
Vital Signs 01/15/25 11:18 Height 5 ft 4 in Weight 130 lb BMI 22.3 BP 102/58 L Blood Pressure Location Rt brachial Position Sitting Pulse 70 Pulse Source Pulse Oximeter Pulse Oximetry (%) 100 Oxygen Delivery Method Room Air Intake Visit Reasons: S/P EGD results Intake Note: Est pt for mgmt of GERD + constipation. CC: Pt denies any GI changes or new sx since last visit. Pt confirms that her current Rx therapies are OK. Center Medical Specialist Required: No Accompanied by: Self / Same As Patient Allergies aspirin (Aspirin) Allergy (Mild, Verified 01/15/25 11:15) UPSET STOMACH, RASH HPI HPI S/P EGD results: Details: LAST VISIT GERD (gastroesophageal reflux disease) Postprandial epigastric pain Chronic idiopathic constipation Postprandial abdominal bloating Plan Continue pantoprazole every morning half an hour before breakfast. Continue sucralfate twice a day in the afternoon and at bedtime. Continue avoiding dietary triggers. Patient will be sent for upper endoscopy. Message sent to Surgical scheduled to book 1 soon. Continue taking Dulcolax daily. Increase fluid intake and activity to promote better bowel motility. Colonoscopy was done in 2020 1 hyperplastic polyp found and repeat colonoscopy in 10 years recommended. No family history of CRC. Patient will follow-up in the office after the procedure, sooner on as needed basis. She is agreeable to this plan and verbalizes understanding of instructions. She was given the opportunity to ask questions and all questions answered. ? Thank you for allowing me to participate in her care Refilled sucralfate 1 g PO BID 180 tabs 1RF 90 days R19.7 UPPER ENDOSCOPY EGD Findings:? Esophagus:? Normal mucosa noted in the entire esophagus. The Z line was at 41 cm. Stomach:? Normal mucosa was noted in the stomach. Numerous polyps were noted in the fundus. Cold forceps biopsies were taken from the larger polyps for histology. Retroflexion was from the cardia. Cold forceps gastric biopsies were taken from the body and antrum. Duodenum:? Normal mucosa was noted in the whole of the examined duodenum. ? EGD Impressions:? Normal esophagus Gastric polyps (biopsy) Normal duodenum ?? Recommendations:?? Follow biopsy results. Our office will call or send a letter with results within 7-10 days. Cont pantoprazole 40 daily for another 4 weeks, and then decrease to 20 mg daily. If H pylori +, patient will be prescribed eradication therapy followed by test of cure. Avoid NSAIDs. Above has been reviewed with the patient. PATHOLOGY RESULTS Addendum Addendum #1 Immunostains for H. pylori on A, B and C are negative. Control stains appropriately. Electronically Signed By: Donita Boucher 12/31/24 1008 Diagnosis A. Gastric antrum, biopsy: Gastric antral mucosa with mild reactive changes and minimal chronic inactive gastritis; negative for intestinal metaplasia and dysplasia. B. Gastric body, biopsy: Gastric body mucosa with minimal chronic inactive gastritis; negative for intestinal metaplasia and dysplasia. C. Gastric polyps, biopsy: Fundic gland polyps with focal minimal chronic inactive inflammation; negative for intestinal metaplasia and dysplasia. Comment: (A, B, C): Immunostains for H. pylori pending; addendum to follow TODAY'S VISIT Patient is here today for follow-up and to discuss upper endoscopy results reports some denying any issues with anesthesia. Patient denies any dyspepsia, dysphagia or odynophagia. Patient reports that she is very careful with her diet takes pantoprazole every day, however occasionally she will have epigastric pain. Patient is going under lot of stress. She reports that she is very emotional and takes in a lot of other people's problems. Patient is not seeing anyone needs she reports that she really does not have anyone to talk to. Patient listens to positive podcasts, does yoga. Patient denies melena, hematochezia, unintentional weight loss or ribbon like stools. Patient denies any other GI concerning symptoms [facility] Medical History Chronic idiopathic constipation GERD (gastroesophageal reflux disease) Postprandial epigastric pain Adopted Asthma History of ganglion cyst Surgical History History of esophagogastroduodenoscopy (EGD) Hx of colonoscopy History of surgical removal of ganglion cyst Family History Other Adopted Social History Household Members: Children Alcohol intake: never Patient Tobacco Use Status: Never used Tobacco Current occupational status: employed Current occupation: [employer]NA[employer] Sexual orientation: Straight/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 Gender identity: Female Review of Systems Const Denies weight gain and Denies weight loss ENT Reports no additional complaints, Denies dysphagia and Denies odynophagia Card Reports no additional complaints Resp Reports no additional complaints GI Reports abdominal pain (Epigastric), Denies belching, Denies melena, Reports bloating, Denies change in bowel habits, Reports constipation, Denies dysphagia, Denies excessive flatus, Denies dyspepsia, Reports heartburn, Denies diarrhea, Denies loose stools, Denies nausea, Denies odynophagia and Denies vomiting Reports no additional complaints Musc Reports no additional complaints Neuro Reports no additional complaints Psych Reports no additional complaints Endo Reports no additional complaints Physical Exam Vital Signs: BMI result Body Mass Index 22.3 Const General: healthy appearing, no acute distress and well developed Nutritional Appearance: well nourished Orientation/consciousness: patient oriented x3 Resp Effort & Inspection: normal respiratory effort, able to speak in complete sentences, no tracheal deviation and symmetric chest movement Auscultation: clear to auscultation bilaterally Cardio Rate: regular rate GI Inspection: Yes normal to inspection and No distended Palpation (GI): Soft to palpation, not firm, nontender and No hepatosplenomegaly present Auscultation: normal bowel sounds General: Yes no CVA tenderness Back/Spine/Pelvis Back: no CVA tenderness Skin General skin exam: elasticity normal, turgor normal and dry skin Neuro General: patient oriented x3 Psych Appearance: grossly normal Mental Status: mental status grossly normal Assessment & Plan Assessment & Plan (1) GERD (gastroesophageal reflux disease): Code(s): K21.9 - Gastro-esophageal reflux disease without esophagitis Category: Medical Qualifiers: Esophagitis presence: esophagitis presence not specified Qualified Code(s): K21.9 - Gastro-esophageal reflux disease without esophagitis (2) Chronic idiopathic constipation: Code(s): K59.04 - Chronic idiopathic constipation Category: Medical (3) Postprandial epigastric pain: Code(s): R10.13 - Epigastric pain Category: Medical (4) Postprandial abdominal bloating: Code(s): R14.0 - Abdominal distension (gaseous) Plan Patient will take sucralfate at bedtime only. Patient will take pantoprazole 40 mg for another 4-6 weeks and then decrease the dose to 20 mg daily. Avoid dietary triggers only 10 snacking. Staying upright for minimum 3 hours after meals discussed with patient. Patient will be referred to counseling to help with how to deal with stressors. Patient will follow-up in our office in 6 months. She was encouraged to call us if she will have any GI concerning symptoms. Patient is agreeable to current plan of care and verbalizes understanding of instructions. She was given the opportunity to ask questions and all questions answered. Thank you for allowing me to participate in her care Orders: Referrals Counseling Referral R45.89 - Other symptoms and signs involving emotional state Medications: New pantoprazole 20 mg PO DAILY 90 tabs 1RF Changed From sucralfate 1 g PO BID 90 days 180 tabs 1RF R19.7 - Diarrhea, unspecified To sucralfate 1 g PO BEDTIME 90 tabs 1RF 90 days R19.7 - Diarrhea, unspecified Coding Level of Care Code Est Pt Level 4 (95913) Complex EM visit Add On G2211 Diagnoses Gastroesophageal reflux disease, unspecified whether esophagitis present K21.9 Esophagitis presence: esophagitis presence not specified Chronic idiopathic constipation K59.04 Postprandial epigastric pain R10.13 Postprandial abdominal bloating R14.0 Time Spent (min) 35 Comment 25 minutes spent with patient and additional 10 minutes spent reviewing her records
[2025-01-15 11:18] VITALS: BP 102/58; PULSE 70; O2SAT 100; BMI 22.3
--- OUTSIDE RECORDS SUMMARY | 2025-01-15 11:53 | XMS_ITS | Clinical Summary ---
Author Organization [address] Address [address] [place] [phone] Phone Care Team Providers Care Reliability Manager Name Role Phone Elio Taveras MD Primary Care Provider [phone] Encounters Date Type Department Care Team Description 07/15/2024 Lab Requisition [facility] - Main Lab [address] [facility] [place] [address] Elio Taveras MD Postprocedural hypothyroidism; [...] 10: 33 AM EDT Rheumatoid arthritis, unspecified ([facility] V24, [facility] V28) COMPREHENSIVE METABOLIC PANEL Routine 12/11/2024 10:33 [...] LAB CHEMISTRY METHOD 12/11/2024 12:25 PM EDT [facility] Triglycerides 81 0 - 150 mg/dL LAB CHEMISTRY METHOD 12/11/2024 12:25 PM EDT [facility] HDL 75 >=40 mg/dL LAB CHEMISTRY METHOD 12/11/2024 12:25 PM EDT [facility] LDL Calculated 57 0 - 100 mg/dL LAB CHEMISTRY METHOD 12/11/2024 12:25 PM EDT [facility] VLDL Cholesterol Sha 16.2 mg/dL LAB CHEMISTRY METHOD 12/11/2024 12:25 PM EDT [facility] Non HDL Chol. (LDL+VLDL) 73 <145 mg/dL LAB CHEMISTRY METHOD 12/11/2024 12:25 PM EDT [facility] Chol/HDL Ratio 2.0 0.0 - 4.4 LAB CHEMISTRY METHOD 12/11/2024 12:25 PM EDT [facility] Blood Venous blood specimen / Unknown Venipuncture / Unknown 12/11/2024 10:33 AM EDT 12/11/2024 11:15 AM EDT us Elio Taveras MD LAB BLOOD ORDERABLES Final Res ult [facility] [address] [place] [address], [place] [phone] * ELIZABETH IFA with titer and pattern (12/11/2024 10:33 AM EDT) Pathologist [facility] ELIZABETH Negative Negative 12/14/2024 12:27 PM EDT [facility] Blood Venous blood specimen / Unknown Venipuncture / Unknown 12/11/2024 10:33 AM EDT 12/11/2024 11:15 AM EDT Elio Taveras MD LAB BLOOD ORDERABLES Final Res ult Performing Organization Address City/[facility]/ZIP Co de Phone Number [facility] [address] [place] [address], [place] [phone] * Sedimentation rate (12/11/2024 10:33 AM EDT) Pathologist [facility] Sed Rate 24 0 - 30 mm/hr LAB HEMETOLOGY METHOD 12/11/2024 11:29 AM EDT [facility] Blood Venous blood specimen / Unknown Venipuncture / Unknown 12/11/2024 10:33 AM EDT 12/11/2024 11:16 AM EDT Elio Taveras MD LAB BLOOD ORDERABLES Final Res ult Performing Organization Address [facility] Co de Phone Number [facility] [address] [place] [address], [place] [phone] * Rheumatoid factor (12/11/2024 10:33 AM EDT) [facility] Rheumatoid Factor <10.0 <15.0 I Unit/mL LAB CHEMISTRY METHOD 12/11/2024 12:20 PM EDT [facility] Blood Venous blood specimen / Unknown Venipuncture / Unknown 12/11/2024 10:33 AM EDT 12/11/2024 11:15 AM EDT Elio Taveras MD LAB BLOOD ORDERABLES Final Res ult Performing Organization Address City/[facility]/ZIP Co de Phone Number [facility] [address] [place] [address], [place] [phone] * C-reactive protein (12/11/2024 10:33 AM EDT) C-Reactive Protein <0.29 <=0.50 mg/dL LAB CHEMISTRY METHOD 12/11/2024 12:25 PM EDT [facility] Blood Venous blood specimen / Unknown Venipuncture / Unknown 12/11/2024 10:33 AM EDT 12/11/2024 11:15 AM EDT Elio Taveras MD LAB BLOOD ORDERABLES Final Res ult Performing Organization Address [facility]/ZIP Co de Phone Number [facility] [address] [place] [address], [place] [phone] * Thyroid stimulating hormone (12/11/2024 10:33 AM EDT) [facility] TSH 3.16 0.40 - 4.00 mcIU/mL LAB CHEMISTRY METHOD 12/11/2024 1:29 PM EDT [facility] Blood Venous blood specimen / Unknown Venipuncture / Unknown 12/11/2024 10:33 AM EDT 12/11/2024 11:15 AM EDT us Elio Taveras MD LAB BLOOD ORDERABLES Final Res ult Performing Organization Address [facility] Co de Phone Number [facility] [address] [place] [address], [place] [phone] * Comprehensive metabolic panel (12/11/2024 10:33 AM EDT) [facility] Sodium 140 133 - 145 mmol/L LAB CHEMISTRY METHOD 12/11/2024 12:25 PM EDT [facility] Potassium 4.3 3.5 - 5.5 mmol/L LAB CHEMISTRY METHOD 12/11/2024 12:25 PM EDT [facility] Chloride 107 96 - 110 mmol/L LAB CHEMISTRY METHOD 12/11/2024 12:25 PM EDT [facility] CO2 28 21 - 32 mmol/L LAB CHEMISTRY METHOD 12/11/2024 12:25 PM EDT [facility] Anion Gap 5 3 - 11 LAB CHEMISTRY METHOD 12/11/2024 12:25 PM [facility] Glucose 83 70 - 100 mg/dL LAB CHEMISTRY METHOD 12/11/2024 12:25 PM [facility] BUN 14 5 - 25 mg/dL LAB CHEMISTRY METHOD 12/11/2024 12:25 PM [facility] Creatinine 0.88 0.50 - 1.10 mg/dL LAB CHEMISTRY METHOD 12/11/2024 12:25 PM [facility] eGFR 78 >=60 mL/min/1. 73m2 LAB CHEMISTRY METHOD 12/11/2024 12:25 PM [facility] Comment:Calculation based on the Chronic Kidney Disease Epidemiology Collaboration (CKD-EPI) equation refit without adjustment for race. BUN/Creatinine Ratio 15.9 LAB CHEMISTRY METHOD 12/11/2024 12:25 PM [facility] Calcium 9.4 8.5 - 10.5 mg/dL LAB CHEMISTRY METHOD 12/11/2024 12:25 PM [facility] AST (SGOT) 33 10 - 42 unit/L LAB CHEMISTRY METHOD 12/11/2024 12:25 PM [facility] ALT (SGPT) 39 10 - 60 unit/L LAB CHEMISTRY METHOD 12/11/2024 12:25 PM [facility] Alkaline Phosphatase 94 42 - 121 unit/L LAB CHEMISTRY METHOD 12/11/2024 12:25 PM [facility] Total Protein 7.4 6.0 - 8.0 g/dL LAB CHEMISTRY METHOD 12/11/2024 12:25 PM [facility] Albumin 3.9 3.2 - 5.0 g/dL LAB CHEMISTRY METHOD 12/11/2024 12:25 PM [facility] Total Bilirubin 1.3 0.0 - 1.4 mg/dL LAB CHEMISTRY METHOD 12/11/2024 12:25 PM EDT [facility] Blood Venous blood specimen / Unknown Venipuncture / Unknown 12/11/2024 10:33 AM EDT 12/11/2024 11:15 AM EDT us Elio Taveras MD LAB BLOOD ORDERABLES Final Res ult [facility] [address] [place] [address], from Last 3 Months Insurance [facility] Care Teams Reliability Manager Relationship Specialty Start Date End Date Elio Taveras MD [address] [place] [address] PCP - General Internal Medicine 04/21/24
--- OUTSIDE RECORDS SUMMARY | 2025-01-15 11:53 | XMS_ITS | Clinical Summary ---
Author Organization [facility] Address [address] [place] [address] Care Team Providers Care Manager Child Name Role Phone Elio Taveras MD Primary Care Provider [phone] Allergies Active Allergy Reactions Criticality Noted Date [...] 12/18/2024 Insurance [employer] Care Teams Manager Child Relationship Specialty Start Date End Date Elio Taveras MD [address] [address] PCP - General 06/26/22
--- OUTSIDE RECORDS SUMMARY | 2025-01-15 12:14 | XMS_ITS | Encounter Summary ---
Author Organization [facility] Address [address] [place] [address] Care Team Providers Care Refinery Superintendent Name Role Phone Elio Taveras MD Primary Care Provider [phone] Encounter Details Date Type Department Care Team (Latest Contact Info) Description 07/15/2024 Lab Requisition [facility] - Main Lab 299 [facility] [place] [address] Elio Taveras MD [address] [place], [place] [id number] Postprocedural hypothyroidism; Unspecified osteoarthritis, unspecified site; Essential [...] as of this encounter Plan of Treatment Not on file documented as of this encounter Procedures Procedure Name Priority Date/Time Associated Diagnosis Comments LIPID PANEL WITH REFLEX TO DIRECT LDL Routine 12/11/2024 10:33 AM EDT Hyperlipidemia, unspecified ELIZABETH IFA WITH TITER AND PATTERN Routine 12/11/2024 10:33 AM EDT SEDIMENTATION RATE Routine 12/11/2024 10 :33 AM EDT Unspecified osteoarthritis, unspecified site RHEUMATOID FACTOR Routine 12/11/2024 10: 33 AM EDT Rheumatoid arthritis, unspecified (CMS/HCC V24, CMS/HCC V28) C-REACTIVE PROTEIN Routine 12/11/2024 10 :33 AM EDT Unspecified osteoarthritis, unspecified site THYROID STIMULATING HORMONE Routine 12/11/2024 10:33 AM EDT Postprocedural hypothyroidism COMPREHENSIVE METABOLIC PANEL Routine 12/11/2024 10:33 AM EDT Essential (primary) hypertension documented in this encounter Results * Lipid panel with reflex to direct LDL (12/11/2024 10:33 AM EDT) Cholesterol 148 0 - 200 mg/dL LAB CHEMISTRY METHOD 12/11/2024 12:25 PM EDT [facility] Triglycerides 81 0 - 150 mg/dL LAB CHEMISTRY METHOD 12/11/2024 12:25 PM EDT [facility] HDL 75 >=40 mg/dL LAB CHEMISTRY METHOD 12/11/2024 12:25 PM EDT [facility] LDL Calculated 57 0 - 100 mg/dL LAB CHEMISTRY METHOD 12/11/2024 12:25 PM EDT [facility] VLDL Cholesterol Sha 16.2 mg/dL LAB CHEMISTRY METHOD 12/11/2024 12:25 PM EDT [facility] Non HDL Chol. (LDL+VLDL) 73 <145 mg/dL LAB CHEMISTRY METHOD 12/11/2024 12:25 PM EDT [facility] Chol/HDL Ratio 2.0 0.0 - 4.4 LAB CHEMISTRY METHOD 12/11/2024 12:25 PM T [facility] Blood Venous blood specimen / Unknown Venipuncture / Unknown 12/11/2024 10:33 AM EDT 12/11/2024 11:15 AM EDT us Elio Taveras MD LAB BLOOD ORDERABLES Final Res ult [facility] [address] [place] [address], [place] [phone] * ELIZABETH IFA with titer and pattern (12/11/2024 10:33 AM EDT) Pathologist [facility] ELIZABETH Negative Negative 12/14/2024 12:27 PM EDT [facility] Blood Venous blood specimen / Unknown Venipuncture / Unknown 12/11/2024 10:33 AM EDT 12/11/2024 11:15 AM EDT Elio Taveras MD LAB BLOOD ORDERABLES Final Res ult [facility] [address] [place] [address], * Sedimentation rate (12/11/2024 10:33 AM EDT) [facility] Sed Rate 24 0 - 30 mm/hr LAB HEMETOLOGY METHOD 12/11/2024 11:29 AM EDT [facility] Blood Venous blood specimen / Unknown Venipuncture / Unknown 12/11/2024 10:33 AM EDT 12/11/2024 11:16 AM EDT Elio Taveras MD LAB BLOOD ORDERABLES Final Res ult [facility] [address] [place] [address], * Rheumatoid factor (12/11/2024 10:33 AM EDT) [facility] Rheumatoid Factor <10.0 <15.0 I Unit/mL LAB CHEMISTRY METHOD 12/11/2024 12:20 PM EDT [facility] Blood Venous blood specimen / Unknown Venipuncture / Unknown 12/11/2024 10:33 AM EDT 12/11/2024 11:15 AM EDT us Elio Taveras MD LAB BLOOD ORDERABLES Final Res ult [facility] [address] [place] [address], [place] [phone] * Comprehensive metabolic panel (12/11/2024 10:33 AM EDT) Sodium 140 133 - 145 mmol/L LAB [facility]STR[facility] Potassium 4.3 3.5 - 5.5 mmol/L LAB CHEMISTRY METHOD 12/11/2024 12:[address] [facility] Chloride 107 96 - 110 mmol/L LAB CHEMISTRY METHOD 12/11/2024 12:[address] [facility] CO2 28 21 - 32 mmol/L LAB CHEMISTRY METHOD 12/11/2024 12:[address] [facility] Anion Gap 5 3 - 11 LAB CHEMISTRY METHOD 12/11/2024 12:[address] [facility] Glucose 83 70 - 100 mg/dL LAB CHEMISTRY METHOD 12/11/2024 12:[address] [facility] BUN 14 5 - 25 mg/dL LAB CHEMISTRY METHOD 12/11/2024 12:[address] [facility] Creatinine 0.88 0.50 - 1.10 mg/dL LAB CHEMISTRY METHOD 12/11/2024 12:[address] [facility] eGFR 78 >=60 mL/min/1. 73m2 LAB CHEMISTRY METHOD 12/11/2024 12:[address] [facility] Comment:Calculation based on the Chronic Kidney Disease Epidemiology Collaboration (CKD-EPI) equation refit without adjustment for race. BUN/Creatinine Ratio 15.9 LAB CHEMISTRY METHOD 12/11/2024 12:[address] [facility] Calcium 9.4 8.5 - 10.5 mg/dL LAB CHEMISTRY METHOD 12/11/2024 12:25 PM EDT [facility] AST (SGOT) 33 10 - 42 unit/L LAB CHEMISTRY METHOD 12/11/2024 12:25 PM EDT [facility] ALT (SGPT) 39 10 - 60 unit/L LAB CHEMISTRY METHOD 12/11/2024 12:25 PM EDT [facility] Alkaline Phosphatase 94 42 - 121 unit/L LAB CHEMISTRY METHOD 12/11/2024 12:25 PM EDT [facility] Total Protein 7.4 6.0 - 8.0 g/dL LAB CHEMISTRY METHOD 12/11/2024 12:25 PM EDT [facility] Albumin 3.9 3.2 - 5.0 g/dL LAB CHEMISTRY METHOD 12/11/2024 12:25 PM EDT [facility] Total Bilirubin 1.3 0.0 - 1.4 mg/dL LAB CHEMISTRY METHOD 12/11/2024 12:25 PM EDT [facility] Blood Venous blood specimen / Unknown Venipuncture / Unknown 12/11/2024 10:33 AM EDT 12/11/2024 11:15 AM EDT Elio Taveras MD LAB BLOOD ORDERABLES Final Res ult [facility] [address] [place] [address], * C-reactive protein (12/11/2024 10:33 AM EDT) C-Reactive Protein <0.29 <=0.50 mg/dL LAB CHEMISTRY METHOD 12/11/2024 12:25 PM EDT [facility] Blood Venous blood specimen / Unknown Venipuncture / Unknown 12/11/2024 10:33 AM EDT 12/11/2024 11:15 AM EDT Elio Taveras MD LAB BLOOD ORDERABLES Final Res ult Performing Organization Address [facility] Co de Phone Number [facility] [address] [place] [address], [place] [phone] * Thyroid stimulating hormone (12/11/2024 10:33 AM EDT) TSH 3.16 0.40 - 4.00 mcIU/mL LAB CHEMISTRY METHOD 12/11/2024 1:29 PM EDT [facility] Blood Venous blood specimen / Unknown Venipuncture / Unknown 12/11/2024 10:33 AM EDT 12/11/2024 11:15 AM EDT Elio Taveras MD LAB BLOOD ORDERABLES Final Res ult Performing Organization Address [facility] Co de Phone Number [facility] [address] [place] [address], documented in this encounter Visit Diagnoses Diagnosis Postprocedural hypothyroidism Postsurgical hypothyroidism Unspecified osteoarthritis, unspecified site Essential (primary) hypertension Unspecified essential hypertension Rheumatoid arthritis, unspecified (CMS/HCC V24, CMS/HCC V28) Hyperlipidemia, unspecified documented in this encounter Care Teams Refinery Superintendent Relationship Specialty Start Date End Date Elio Taveras MD [address] [place] [address] PCP - General Internal Medicine 04/21/24 documented as of this encounter
== END 2025-01-15 11:43 | disposition home or self-care (01) ==
LOC: HO.HGI 11:13
PROVIDERS: PCP Internal Medicine; Visit Provider Nurse Practitioner Family
DX: K21.9 Gastro-esophageal reflux disease without esophagitis (principal); K59.04 Chronic idiopathic constipation; R10.13 Epigastric pain; R14.0 Abdominal distension (gaseous)
CPT/HCPCS: 99214

== ENCOUNTER 2025-04-09 08:14 | Outpatient (AMB) | payer OTHER, SELFPAY ==
--- NOTE | 2025-04-09 08:16 | A.OFFVIS_ITS ---
Vital Signs 04/09/25 08:17 Height 5 ft 4 in Weight 130 lb BMI 22.3 BP 106/64 Blood Pressure Location Lt brachial Position Sitting Pulse 84 Pulse Source Pulse Oximeter Pulse Oximetry (%) 97 Oxygen Delivery Method Room Air Intake Visit Reasons: Urgent appt. Severe exacerbation Intake Note: Est pt for mgmt of GERD + constipation. CC: C.O. severe GERD exacerbation despite current therapies. Sx include severe epigastric pain, bloating, and GERD. Pt denies any additional sx. Reports she has been to UC and ED recently and received rounds of both prednisone and doxycycline. Prednisone is finished and did not relieve any sx; doxycyline is still in progress and does help mitigate her sx somewhat. Bisque Kiln Drawer Required: No Accompanied by: Self / Same As Patient Allergies aspirin (Aspirin) Allergy (Mild, Verified 04/09/25 09:26) UPSET STOMACH, RASH HPI HPI Urgent appt. Severe exacerbation: Details: LAST VISIT: GERD (gastroesophageal reflux disease) Chronic idiopathic constipation Postprandial epigastric pain Postprandial abdominal bloating Plan Patient will take sucralfate at bedtime only. Patient will take pantoprazole 40 mg for another 4-6 weeks and then decrease the dose to 20 mg daily. Avoid dietary triggers only 10 snacking. Staying upright for minimum 3 hours after meals discussed with patient. Patient will be referred to counseling to help with how to deal with stressors. Patient will follow-up in our office in 6 months. She was encouraged to call us if she will have any GI concerning symptoms. Patient is agreeable to current plan of care and verbalizes understanding of instructions. She was given the opportunity to ask questions and all questions answered. ? Thank you for allowing me to participate in her care Referrals Counseling Referral R45.89 New pantoprazole 20 mg PO DAILY 90 tabs 1RF Changed Changed From sucralfate 1 g PO BID 90 days 180 tabs 1RF R19.7 Changed To sucralfate 1 g PO BEDTIME 90 tabs 1RF 90 days R19.7 TODAY'S VISIT Patient is here today for requested visit. Patient was seen in her ED at [facility] on April 01. Patient was placed on prednisone for viral illness. Chest X-ray at that time showed no infectious processes. Patient continued to feel tired and weak and went to urgent care where she was prescribed antibiotic for sinusitis. Patient was placed on doxycycline. She finished her prednisone, however she still is continuing dicyclomine. Patient reports epigastric pain and chest pressure, does not report shortness of breath. Patient was given rescue inhaler. Patient reports feeling malaise. Reports that she only moves her bowels if she takes her laxatives. Patient reports that she is taking pantoprazole daily. Her symptoms of acid reflux are suppressed for the most part. Patient denies any fever or chills. Labs from [facility] reviewed. Patient had no leukocytosis. Lipase 85. Patient admits to be eating lots of sweets lately. 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 Sexual orientation: Straight/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 Gender identity: Female Review of Systems Const Denies weight gain and Denies weight loss ENT Reports no additional complaints, Denies dysphagia and Denies odynophagia Card Reports no additional complaints Resp Reports no additional complaints GI Reports abdominal pain (Epigastric), Denies belching, Denies melena, Reports bloating, Denies change in bowel habits, Denies dysphagia, Reports excessive flatus, Reports dyspepsia, Reports heartburn, Denies diarrhea, Denies loose stools, Denies nausea, Denies odynophagia and Denies vomiting Reports no additional complaints Musc Reports no additional complaints Neuro Reports no additional complaints Psych Reports no additional complaints Endo Reports no additional complaints Physical Exam Vital Signs: Last Vital Signs Pulse 84 04/09/25 08:17 BP 106/64 04/09/25 08:17 Pulse Ox 97 04/09/25 08:17 Oxygen Delivery Method Room Air 04/09/25 08:17 BMI result Body Mass Index 22.3 Const General: healthy appearing, no acute distress and well developed Nutritional Appearance: well nourished Orientation/consciousness: patient oriented x3 Resp Effort & Inspection: normal respiratory effort, able to speak in complete sentences, no tracheal deviation and symmetric chest movement Auscultation: wheezes inspiratory wheezes and upper bilaterally Cardio Rate: regular rate GI Inspection: Yes normal to inspection and No distended Palpation (GI): Soft to palpation, not firm, nontender and No hepatosplenomegaly present Auscultation: normal bowel sounds General: Yes no CVA tenderness Back/Spine/Pelvis Back: no CVA tenderness Skin General skin exam: elasticity normal, turgor normal and dry skin Neuro General: patient oriented x3 Psych Appearance: grossly normal Mental Status: mental status grossly normal Assessment & Plan Assessment & Plan (1) GERD (gastroesophageal reflux disease): Code(s): K21.9 - Gastro-esophageal reflux disease without esophagitis Category: Medical Qualifiers: Esophagitis presence: esophagitis presence not specified Qualified Code(s): K21.9 - Gastro-esophageal reflux disease without esophagitis (2) Chronic idiopathic constipation: Code(s): K59.04 - Chronic idiopathic constipation Category: Medical (3) Postprandial epigastric pain: Code(s): R10.13 - Epigastric pain Category: Medical (4) Inspiratory wheeze on examination: Code(s): R06.2 - Wheezing Plan Patient will continue taking her pantoprazole. Inspiratory wheeze. Patient will be referred to pulmonology. Patient denies any fever or chills. Patient's symptoms are chronic and patient just needs to rest. However if she will feel that her chest pressure is getting worse or worsening shortness of breath patient should go to ED. assistant loan processor was able to get patient appointment for today with charging manipulator for 10:30 this morning. Patient reports abdominal bloating will send her script for simethicone. She has a follow-up with us in May. Patient was encouraged to call us sooner if she will have any GI concerning symptoms. She is agreeable to this plan and verbalizes understanding of instructions. Will send her to check CBC, CMP and lipase. Diagnosed with pancreatitis couple weeks ago. Patient was encouraged to stay away from fried food and sweets. She was given the opportunity to ask questions and all questions answered. Thank you for allowing me to participate in her care Orders: Orders Comprehensive Met. Panel Today K21.9 - Gastro-esophageal reflux disease without esophagitis Lipase Today R10.9 - Unspecified abdominal pain Complete Blood Count no Diff Today K21.9 - Gastro-esophageal reflux disease without esophagitis Referrals Pulmonology Referral J45.909 - Unspecified asthma, uncomplicated Medications: New simethicone (Gas Relief (simethicone)) 125 mg PO BID-TID PRN 90 tabs 3RF abdominal distention Coding Level of Care Code Complex visit Add On G2211 Diagnoses Gastroesophageal reflux disease, unspecified whether esophagitis present K21.9 Esophagitis presence: esophagitis presence not specified Chronic idiopathic constipation K59.04 Postprandial epigastric pain R10.13 Inspiratory wheeze on examination R06.2 Time Spent (min) 40 Comment 25 minutes spent with patient and additional 15 minutes spent reviewing her records
[2025-04-09 08:17] VITALS: BP 106/64; PULSE 84; O2SAT 97; BMI 22.3
--- OUTSIDE RECORDS SUMMARY | 2025-04-09 08:19 | XMS_ITS | Clinical Summary ---
Author Organization [facility] Address [address] [place] [address] Care Team Providers Care Roll Reclaimer Name Role Phone Elio Taveras MD Primary Care Provider [phone] Allergies Active Allergy Reactions Criticality Noted Date [...] Vaccine (1 of 2) 10/05/2019 Influenza Vaccine 12/18/2024 COVID-19 Vaccine (1 - season) 2025 RSV Vaccine 50 years and old er and Patients (1 - 1-dose 75+ series) 2044 Insurance [employer] Care Teams Roll Reclaimer Relationship Specialty Start Date End Date Elio Taveras MD [address] [address] PCP - General 06/26/22
--- OUTSIDE RECORDS SUMMARY | 2025-04-09 08:19 | XMS_ITS | Clinical Summary ---
Author Organization [address] Address [address] [place] [address] Phone Care Team Providers Care Dental Service Chief Name Role Phone Elio Taveras MD Primary Care Provider [phone] Allergies Active Allergy Reactions Criticality Noted Date Comments Aspirin Hives,Cramps 04/01/2025 Self reported Medications albuterol HFA (PROAIR HFA ; PROVENTIL HFA ; VENTOLIN HFA) 90 mcg/actuation inhaler Inhale 2 puffs by mouth every 4 (four) hours if needed for wheezing. 1 each 04/01/2025 Active predniSONE (DELTASONE) 20 mg tablet Take 1 tablet (20 mg total) by mouth 2 (two) times a day. See instruction s. 10 tablet 04/01/2025 Active Encounters Date Type Department Care Team Description 04/02/2025 12:05 PM EST Lab Draw Station - [address] [place] [phone] Myxedema heart disease (Primary Dx); Hyperlipemia; Generalized anxiety disorder; Constipation; Senile arthritis; Frequent bowel movements; Cramp of limb; Body mass index (BMI) of 22.0-22.9 in adult 04/01/2025 7:58 PM EST - 04/01/2025 11:00 PM EST Emergency [facility] Emergency [address] [place] [id number] Gt Abad MD Exacerbation of asthma, unspecified asthma severity, unspecified whether persistent (Primary Dx); Weakness; Chest discomfort; Viral syndrome Discharge Disposition: Home or Self Care from Last 3 Months Medical History Medical History Date Comments Asthma IBS (irritable bowel syndrome) Social History Tobacco Use Types Packs/Day Years Used Date Smoking Tobacco: Never Assessed Comments Unknown Sex and Gender Information Value Date Recorded Sex Assigned at Not on file Legal Sex Female 4:15 AM EST Gender Identity Not on file Sexual Orientation Not on file Obstetrics History Last Filed Vital Signs Vital Sign Reading Time Taken Comments Blood Pressure 121/62 04/01/2025 10:15 PM EST Pulse 68 04/01/2025 10:15 PM EST Temperature 36.4 C (97.5 F) 04/01/2025 10:15 PM EST Respiratory Rate 20 04/01/2025 10:15 PM EST Oxygen Saturation 100% 04/01/2025 10:15 PM EST Inhaled Oxygen Concentration - - Weight 59 kg (130 lb) 04/01/2025 6:41 PM EST Height 162.6 cm (5' 4 ) 04/01/2025 6:41 PM EST Body Mass Index 22.31 04/01/2025 6:41 PM EST Plan of Treatment Health Maintenance Due Date Last Done Comments Breast Cancer Screening 1969 Colorectal Cancer Screening: Colonoscopy 1969 DTaP,Tdap,and Td Vaccines (1 - Tdap) 1988 Hepatitis B Vaccines (1 of 3 - 19+ 3-dose series) 1988 Pneumococcal Vaccine: 50+ Years (1 of 2 - PCV) 1988 Cervical Cancer Screening: P ap Smear 1990 RSV Immunization Adult Patients (1 - Risk 50-74 years 1-dose series) 10/05/2019 Zoster Vaccines (2 of 3) 02/02/2021 12/08/2020 HIV Screening 04/22/2022 Hepatitis C Screening 04/22/2022 Social Influencers of Health Screening 04/22/2022 Depression Screening 05/20/2024 COVID-19 Vaccine (1 - 2024-2 6 season) 2025 Influenza Vaccine (#1) 2025 Cholesterol Screening (Lipid Panel) 04/02/2030 04/02/2025, 12/11/2024, 07/27/2024 HIB Vaccines Aged Out No [...] Procedure Name Priority Date/Time Associated Diagnosis Comments MICROALBUMIN CREATININE URINE RATIO Routine 04/02/2025 12:17 PM EST Myxedema heart disease Hyperlipemia Generalized anxiety disorder Constipation Senile arthritis Frequent bowel movements Cramp of limb Body mass index (BMI) of 22.0-22.9 in adult CBC WITH AUTO DIFFERENTIAL Routine 04/02/2025 12:12 PM EST Myxedema heart disease Hyperlipemia Generalized anxiety disorder Constipation Senile arthritis Frequent bowel movements Cramp of limb Body mass index (BMI) of 22.0-22.9 in adult VITAMIN D 25 HYDROXY Routine 04/02/2025 12:12 PM EST Myxedema heart disease Hyperlipemia Generalized anxiety disorder Constipation Senile arthritis Frequent bowel movements Cramp of limb Body mass index (BMI) of 22.0-22.9 in adult URIC ACID Routine 04/02/2025 12:12 PM EST Myxedema heart disease Hyperlipemia Generalized anxiety disorder Constipation Senile arthritis Frequent bowel movements Cramp of limb Body mass index (BMI) of 22.0-22.9 in adult THYROID STIMULATING HORMONE Routine 04/02/2025 12:12 PM EST Myxedema heart disease Hyperlipemia Generalized anxiety disorder Constipation Senile arthritis Frequent bowel movements Cramp of limb Body mass index (BMI) of 22.0-22.9 in adult SEDIMENTATION RATE Routine 04/02/2025 12 :12 PM EST Myxedema heart disease Hyperlipemia Generalized anxiety disorder Constipation Senile arthritis Frequent bowel movements Cramp of limb Body mass index (BMI) of 22.0-22.9 in adult LIPID PANEL WITH REFLEX TO DIRECT LDL Routine 04/02/2025 12:12 PM EST Myxedema heart disease Hyperlipemia Generalized anxiety disorder Constipation Senile arthritis Frequent bowel movements Cramp of limb Body mass index (BMI) of 22.0-22.9 in adult HEMOGLOBIN A1C Routine 04/02/2025 12:12 PM EST Myxedema heart disease Hyperlipemia Generalized anxiety disorder Constipation Senile arthritis Frequent bowel movements Cramp of limb Body mass index (BMI) of 22.0-22.9 in adult COMPREHENSIVE METABOLIC PANEL Routine 04/02/2025 12:12 PM EST Myxedema heart disease Hyperlipemia Generalized anxiety disorder Constipation Senile arthritis Frequent bowel movements Cramp of limb Body mass index (BMI) of 22.0-22.9 in adult CBC AND DIFFERENTIAL Routine 04/02/2025 12:12 PM EST Myxedema heart disease Hyperlipemia Generalized anxiety disorder Constipation Senile arthritis Frequent bowel movements Cramp of limb Body mass index (BMI) of 22.0-22.9 in adult ECG ANNOTATED 04/02/2025 XR CHEST 2 VIEWS STAT 04/01/2025 10:0 7 PM EST [id number], RSV, FLU A AND B QUALITATIVE RT-PCR, INTERNAL LAB STAT 04/01/2025 9:59 PM EST D-DIMER STAT 04/01/2025 9:47 PM EST CBC WITH AUTO DIFFERENTIAL STAT 04/01/2025 6:43 PM EST B-TYPE NATRIURETIC PEPTIDE STAT 04/01/2025 6:43 PM EST MAGNESIUM STAT 04/01/2025 6:43 PM EST LIPASE STAT 04/01/2025 6:43 PM EST COMPREHENSIVE METABOLIC PANEL STAT 04/01/2025 6:43 PM EST CBC AND DIFFERENTIAL STAT 04/01/2025 6:43 PM EST TROPONIN I HIGH SENSITIVITY Timed 04/01/2025 6:43 PM EST ECG 12-LEAD STAT 04/01/2025 6:34 PM EST from Last 3 Months Results * Microalbumin creatinine urine ratio (04/02/2025 12:17 PM EST) Creatinine, Urine 92.0 mg/dL LAB CHEMISTRY METHOD 04/02/2025 3:28 PM EST [facility] Microalb, Ur <5.0 0.0 - 29.0 mg/L LAB CHEMISTRY METHOD 04/02/2025 3:28 PM EST [facility] Microalb/Creat Ratio <5 <30 mg/g creat LAB CHEMISTRY METHOD 04/02/2025 3:28 PM EST [facility] Urine Urine specimen obtained by clean catch procedure / Unknown Non-blood Collection / Unknown 04/02/2025 12:17 PM EST 04/02/2025 12:25 PM EST us Elio Taveras MD LAB URINE ORDERABLES Final Res ult [facility] [address] [place] [address], [place] [phone] * Lipid panel with reflex to direct LDL (04/02/2025 12:12 PM EST) Cholesterol 162 0 - 200 mg/dL LAB CHEMISTRY METHOD 04/02/2025 1:51 PM EST [facility] Triglycerides 110 0 - 150 mg/dL LAB CHEMISTRY METHOD 04/02/2025 1:51 PM EST [facility] HDL 77 >=40 mg/dL LAB CHEMISTRY METHOD 04/02/2025 1:51 PM [facility] LDL Calculated 63 0 - 100 mg/dL LAB CHEMISTRY METHOD 04/02/2025 1:51 PM [facility] Comment:Estimated LDL Calcul ated using equation: Total cholesterol - HDL cholesterol - (Triglycerides/5) VLDL Cholesterol Sha 22 mg/dL LAB CHEMISTRY METHOD 04/02/2025 1:51 PM [facility] Non HDL Chol. (LDL+VLDL) 85 <145 mg/dL LAB CHEMISTRY METHOD 04/02/2025 1:51 PM [facility] Chol/HDL Ratio 2.1 0.0 - 4.4 LAB CHEMISTRY METHOD 04/02/2025 1:51 PM [facility] Blood Venous blood specimen / Unknown Venipuncture / Unknown 04/02/2025 12:12 PM EST 04/02/2025 12:25 PM EST us Elio Taveras MD LAB BLOOD ORDERABLES Final Res ult [facility] [address] [place] [address], * (ABNORMAL) CBC auto differential (04/02/2025 12:12 PM EST) Only the most recent of2 resultswithin the time period is included. WBC 6.0 4.8 - 10.8 K/mcL LAB HEMETOLOGY METHOD 04/02/2025 12:33 PM [facility] RBC 4.30 3.80 - 4.80 M/mcL LAB HEMETOLOGY METHOD 04/02/2025 12:33 PM [facility] Hemoglobin 12.6 11.5 - 16.0 g/dL LAB HEMETOLOGY METHOD 04/02/2025 12:33 PM [facility] Hematocrit 39.0 35.0 - 47.0 % LAB HEMETOLOGY METHOD 04/02/2025 12:33 PM [facility] MCV 91.1 79.0 - 98.0 FL LAB HEMETOLOGY METHOD 04/02/2025 12:33 PM [facility] MCH 29.4 27.0 - 32.0 pcg LAB HEMETOLOGY METHOD 04/02/2025 12:33 PM [facility] MCHC 32.3 32.0 - 37.0 g/dL LAB HEMETOLOGY METHOD 04/02/2025 12:33 PM [facility] RDW 13.7 11.0 - 15.0 % LAB HEMETOLOGY METHOD 04/02/2025 12:33 PM [facility] Platelets 154 130 - 400 K/mcL LAB HEMETOLOGY METHOD 04/02/2025 12:33 PM [facility] MPV 11.2(H) 7.0 - 11.0 FL LAB HEMETOLOGY METHOD 04/02/2025 12:33 PM [facility] NRBC 0.0 <1.0 % LAB HEMETOLOGY METHOD 04/02/2025 12:33 PM [facility] NRBC Absolute 0.00 <0.10 K/mcL LAB HEMETOLOGY METHOD 04/02/2025 12:33 PM [facility] Neutrophils Relative 63.9 % LAB HEMETOLOGY METHOD 04/02/2025 12:33 PM [facility] Lymphocytes Relative 26.4 % LAB HEMETOLOGY METHOD 04/02/2025 12:33 PM [facility] Monocytes Relative 8.4 % LAB HEMETOLOGY METHOD 04/02/2025 12:33 PM [facility] Eosinophils Relative 0.8 % LAB HEMETOLOGY METHOD 04/02/2025 12:33 PM EST [facility] Basophils Relative 0.3 % LAB HEMETOLOGY METHOD 04/02/2025 12:33 PM EST [facility] Immature Granulocytes Relative 0.2 % LAB HEMETOLOGY METHOD 04/02/2025 12:33 PM [facility] Neutrophils Absolute 3.82 1.50 - 7.00 K/mcL LAB HEMETOLOGY METHOD 04/02/2025 12:33 PM EST [facility] Lymphocytes Absolute 1.58 1.00 - 5.00 K/mcL LAB HEMETOLOGY METHOD 04/02/2025 12:33 PM [facility] Monocytes Absolute 0.50 0.20 - 1.00 K/mcL LAB HEMETOLOGY METHOD 04/02/2025 12:33 PM [facility] Eosinophils Absolute 0.05 0.00 - 0.50 K/mcL LAB HEMETOLOGY METHOD 04/02/2025 12:33 PM EST [facility] Basophils Absolute 0.02 0.00 - 0.20 K/mcL LAB HEMETOLOGY METHOD 04/02/2025 12:33 PM EST [facility] Immature Granulocytes Absolute 0.01 0.00 - 0.03 K/mcL LAB HEMETOLOGY METHOD 04/02/2025 12:33 PM EST [facility] Blood Venous blood specimen / Unknown Venipuncture / Unknown 04/02/2025 12:12 PM EST 04/02/2025 12:25 PM EST us Elio Taveras MD LAB BLOOD ORDERABLES Final Res ult [facility] [address] [place] [address], * Vitamin D 25 hydroxy (04/02/2025 12:12 PM EST) Vit D, 25-Hydroxy 50.1 30.0 - 80.0 ng/mL LAB CHEMISTRY METHOD 04/02/2025 2:30 PM EST [facility] Blood Venous blood specimen / Unknown Venipuncture / Unknown 04/02/2025 12:12 PM EST 04/02/2025 12:25 PM EST us Elio Taveras MD LAB BLOOD ORDERABLES Final Res ult [facility] [address] [place] [address], [place] [phone] * Sedimentation rate (04/02/2025 12:12 PM EST) Pathologist [facility] Sed Rate 11 0 - 30 mm/hr LAB HEMETOLOGY METHOD 04/02/2025 12:33 PM EST [facility] Blood Venous blood specimen / Unknown Venipuncture / Unknown 04/02/2025 12:12 PM EST 04/02/2025 12:25 PM EST us Elio Taveras MD LAB BLOOD ORDERABLES Final Res ult Performing Organization Address [facility]/ZIP Co de Phone Number [facility] [address] [place] [address], [place] [phone] * Uric acid (04/02/2025 12:12 PM EST) Pathologist [facility] Uric Acid 4.4 3.1 - 7.8 mg/dL LAB CHEMISTRY METHOD 04/02/2025 1:46 PM EST [facility] Blood Venous blood specimen / Unknown Venipuncture / Unknown 04/02/2025 12:12 PM EST 04/02/2025 12:25 PM EST us Elio Taveras MD LAB BLOOD ORDERABLES Final Res ult Performing Organization Address City/[facility]/ZIP Co de Phone Number [facility] [address] [place] [address], [place] [phone] * Thyroid stimulating hormone (04/02/2025 12:12 PM EST) Pathologist [facility] TSH 2.30 0.40 - 4.00 mcIU/mL LAB CHEMISTRY METHOD 04/02/2025 2:30 PM EST [facility] Blood Venous blood specimen / Unknown Venipuncture / Unknown 04/02/2025 12:12 PM EST 04/02/2025 12:25 PM EST us Elio Taveras MD LAB BLOOD ORDERABLES Final Res ult Performing Organization Address City/[facility]/ZIP Co de Phone Number [facility] [address] [place] [address], [place] [phone] * Hemoglobin A1c (04/02/2025 12:12 PM EST) [facility] Hemoglobin A1C 5.9 <6.5 % LAB CHEMISTRY METHOD 04/02/2025 1:46 PM EST [facility] Mean Bld Glu Estim. 123 mg/dL LAB CHEMISTRY METHOD 04/02/2025 1:46 PM EST [facility] Blood Venous blood specimen / Unknown Venipuncture / Unknown 04/02/2025 12:12 PM EST 04/02/2025 12:25 PM EST us Elio Taveras MD LAB BLOOD ORDERABLES Final Res ult [facility] [address] [place] [address], [place] [phone] * Comprehensive metabolic panel (04/02/2025 12:12 PM EST) Only the most recent of2 resultswithin the time period is included. [facility] Sodium 144 133 - 145 mmol/L LAB CHEMISTRY METHOD 04/02/2025 1:51 PM EST [facility] Potassium 4.6 3.5 - 5.5 mmol/L LAB CHEMISTRY METHOD 04/02/2025 1:51 PM [facility] Chloride 106 96 - 110 mmol/L LAB CHEMISTRY METHOD 04/02/2025 1:51 PM [facility] CO2 31 21 - 32 mmol/L LAB CHEMISTRY METHOD 04/02/2025 1:51 PM [facility] Anion Gap 7 3 - 11 LAB CHEMISTRY METHOD 04/02/2025 1:51 PM [facility] Glucose 89 70 - 100 mg/dL LAB CHEMISTRY METHOD 04/02/2025 1:51 PM [facility] BUN 10 5 - 25 mg/dL LAB CHEMISTRY METHOD 04/02/2025 1:51 PM [facility] Creatinine 0.91 0.50 - 1.10 mg/dL LAB CHEMISTRY METHOD 04/02/2025 1:51 PM [facility] eGFR 75 >=60 mL/min/1. 73m2 LAB CHEMISTRY METHOD 04/02/2025 1:51 PM [facility] Comment:Calculation based on the Chronic Kidney Disease Epidemiology Collaboration (CKD-EPI) equation refit without adjustment for race. BUN/Creatinine Ratio 11.0 LAB CHEMISTRY METHOD 04/02/2025 1:51 PM [facility] Calcium 9.1 8.5 - 10.5 mg/dL LAB CHEMISTRY METHOD 04/02/2025 1:51 PM [facility] AST (SGOT) 30 10 - 42 unit/L LAB CHEMISTRY METHOD 04/02/2025 1:51 PM [facility] ALT (SGPT) 36 10 - 60 unit/L LAB CHEMISTRY METHOD 04/02/2025 1:51 PM [facility] Alkaline Phosphatase 98 42 - 121 unit/L LAB CHEMISTRY METHOD 04/02/2025 1:51 PM [facility] Total Protein 7.1 6.0 - 8.0 g/dL LAB CHEMISTRY METHOD 04/02/2025 1:51 PM EST [facility] Albumin 3.8 3.2 - 5.0 g/dL LAB CHEMISTRY METHOD 04/02/2025 1:51 PM EST [facility] Total Bilirubin 1.4 0.0 - 1.4 mg/dL LAB CHEMISTRY METHOD 04/02/2025 1:51 PM EST [facility] Blood Venous blood specimen / Unknown Venipuncture / Unknown 04/02/2025 12:12 PM EST 04/02/2025 12:25 PM EST Elio Taveras MD LAB BLOOD ORDERABLES Final Res ult [facility] [address] [place] [address], [place] [phone] * ECG-Annotated (04/02/2025) us Provider Onbase ECG ORDERABLES Final Result * XR Chest 2 Views (04/01/2025 10:07 PM EST) Anatomical Region Laterality Modality Body Radiographic María ging 04/02/2025 9:14 AM EST Impressions 04/02/2025 9:15 AM EST No acute findings. -------- FINAL REPORT -------- Dictated By: Jose Solorzano Dictated Date: 04/02/2025 09:14 ET Assigned Physician: Jose Solorzano Reviewed and Electronically Signed By: Jose Solorzano Signed Date: 04/02/2025 09:15 ET Workstation ID: [id number] Transcribed By: Self Edit Transcribed Date: 04/02/2025 09:14 ET Narrative 04/02/2025 9:15 AM EST PROCEDURE: PA and lateral radiographs of the chest. HISTORY: dyspnea. COMPARISON: 06/18/2022. FINDINGS: Lungs are hyperinflated. Calcified granuloma at the lateral scattered punctate calcified granulomas. Pleural spaces, pulmonary vasculature, and cardiomediastinal contours are normal. Procedure Note Jose Solorzano MD - 04/02/2025 PROCEDURE: PA and lateral radiographs of the chest. HISTORY: dyspnea. COMPARISON: 06/18/2022. FINDINGS: Lungs are hyperinflated. Calcified granuloma at the lateral scatteredpunctate calcified granulomas. Pleural spaces, pulmonary vasculature, andcardiomediastinal contours are normal. IMPRESSION: No acute findings. -------- FINAL REPORT -------- Dictated By: Jose Solorzano Dictated Date: 04/02/2025 09:14 ET Assigned Physician: Jose Solorzano Reviewed and Electronically Signed By: Jose Solorzano Signed Date: 04/02/2025 09:15 ET Workstation ID: [id number] Transcribed By: Self Edit Transcribed Date: 04/02/2025 09:14 ET Gt Abad MD IMG XR PROCEDURES Final Res ult * [id number], RSV, Influenza A and B qualitative RT-PCR (04/01/2025 9:59 PM EST) Influenza A PCR Not Detected Not Detected LAB MICROBIOLOGY METHOD 04/01/2025 10:46 PM EST [facility] Influenza B PCR Not Detected Not Detected LAB MICROBIOLOGY METHOD 04/01/2025 10:46 PM EST [facility] RSV PCR Not Detected Not Detected LAB MICROBIOLOGY METHOD 04/01/2025 10:46 PM EST [facility] SARS COV-2 Not Detected Not Detected LAB MICROBIOLOGY METHOD 04/01/2025 10:46 PM EST [facility] Swab Both anterior nares / Unknown Non-blood Collection / Unknown 04/01/2025 9:59 PM EST 04/01/2025 10:05 PM EST Gt Abad MD LAB MICROBIOLOGY - GENERAL ORDERABLES Final Result [facility] [address] [place] [address], [place] [phone] * D-dimer, quantitative (04/01/2025 9:47 PM EST) [facility] D-Dimer, Quant (D-DU) <150 <=230 ng/mL DDU LAB COAGULATION METHOD 04/01/2025 10:25 PM EST [facility] Blood Venous blood specimen / Unknown Venipuncture / Unknown 04/01/2025 9:47 PM EST 04/01/2025 10:05 PM EST [facility] LAB - 04/01/2025 10:25 PM EST D-Dimer <230 ng/mL (D-Dimer units) is the threshold for exclusion of DVT/PE. D-Dimer may be elevated in: Critically ill, severely infected, trauma patients, DIC, acute CVA, acute [place], unstable angina, AF, old age, , and smoking. D-Dimer may be decreased with: Initiation of heparin therapy and oral anticoagulants. us Gt Abad MD LAB BLOOD ORDERABLES Final Result [facility] [address] [place] [address], * Troponin I high sensitivity (04/01/2025 6:43 PM EST) [facility] High Sensitivity Troponin I 4 <=54 ng/L LAB CHEMISTRY METHOD 04/01/2025 7:23 PM EST [facility] Blood Venous blood specimen / Unknown Venipuncture / Unknown 04/01/2025 6:43 PM EST 04/01/2025 6:56 PM EST [facility] LAB - 04/01/2025 7:23 PM EST High levels of biotin in samples may falsely decrease hsTroponin values. Use caution when interpreting hsTroponin results in patients taking biotin who exhibit renal impairment (eGFR <60) or in patients taking more than 20 mg/day of biotin. us Gt Abad MD LAB BLOOD ORDERABLES Final Result Performing Organization Address [facility] de Phone Number [facility] [address] [place] [address], [place] [phone] * B-type natriuretic peptide (04/01/2025 6:43 PM EST) Pathologist [facility] BNP 17 <=100 pcg/mL LAB CHEMISTRY METHOD 04/01/2025 7:35 PM EST [facility] Blood Venous blood specimen / Unknown Venipuncture / Unknown 04/01/2025 6:43 PM EST 04/01/2025 6:56 PM EST Gt Abad MD LAB BLOOD ORDERABLES Final Result Performing Organization Address [facility] de Phone Number [facility] [address] [place] [address], * Magnesium (04/01/2025 6:43 PM EST) [facility] Magnesium 2.4 1.9 - 2.6 mg/dL LAB CHEMISTRY METHOD 04/01/2025 7:24 PM EST [facility] Blood Venous blood specimen / Unknown Venipuncture / Unknown 04/01/2025 6:43 PM EST 04/01/2025 6:56 PM EST Gt Abad MD LAB BLOOD ORDERABLES Final Result Performing Organization Address [facility]/ZIP Co de Phone Number [facility] [address] [place] [address], [place] [phone] * (ABNORMAL) Lipase (04/01/2025 6:43 PM EST) Pathologist [facility] Lipase 85(H) 13 - 75 unit/L LAB CHEMISTRY METHOD 04/01/2025 7:24 PM EST [facility] Blood Venous blood specimen / Unknown Venipuncture / Unknown 04/01/2025 6:43 PM EST 04/01/2025 6:56 PM EST Gt Abad MD LAB BLOOD ORDERABLES Final Result Performing Organization Address City/[facility]/ZIP Co de Phone Number JEISON PERDUE [place] ([facility] [address] [place] [address], * ECG 12 lead (04/01/2025 6:34 PM EST) Ventricular Rate ECG 59 BPM GEMUSE Atrial Rate 59 BPM GEMUSE P-R Interval 130 ms GEMUSE QRS Duration 76 ms GEMUSE Q-T Interval 422 ms GEMUSE QTc 417 ms GEMUSE P Wave [place] 57 degrees GEMUSE R [place] 74 degrees GEMUSE T [place] 54 degrees GEMUSE ECG Interpretation Sinus bradycardia Otherwise normal ECG When compared with ECG of 18-JUN-2022 20:38, No significant change was found Confirmed by ISAAC DICKINSON ([id number]) on 04/04/2025 7:58:36 AM GEMUSE 04/01/2025 6:34 PM EST 04/04/2025 7:58 AM EST Gt Abad MD ECG ORDERABLES Final Resul t Performing Organization Address City/[facility] Co de Phone Number GEMUSE from Last 3 Months Insurance [facility] Care Teams Dental Service Chief Relationship Specialty Start Date End Date Elio Taveras MD [address] [place] [address] PCP - General Internal Medicine 04/21/24
--- OUTSIDE RECORDS SUMMARY | 2025-04-09 08:19 | XMS_ITS | Encounter Summary ---
Author Organization [facility] Address [address] [place] [address] Care Team Providers Care Sql Architect Name Role Phone Elio Taveras MD Primary Care Provider [phone] Encounter Details Date Type Department Care Team (Latest Contact Info) Description 07/15/2024 Lab Requisition [facility] - Main Lab [address] [place] [id number] Elio Taveras MD [address] [place] [address] Postprocedural hypothyroidism; Unspecified osteoarthritis, unspecified site; Essential [...] LAB CHEMISTRY METHOD 12/11/2024 12:25 PM EDT [facility] Triglycerides 81 0 - 150 mg/dL LAB CHEMISTRY METHOD 12/11/2024 12:25 PM EDT [facility] HDL 75 >=40 mg/dL LAB CHEMISTRY METHOD 12/11/2024 12:25 PM T [facility] LDL Calculated 57 0 - 100 mg/dL LAB CHEMISTRY METHOD 12/11/2024 12:25 PM [facility] VLDL Cholesterol Sha 16.2 mg/dL LAB CHEMISTRY METHOD 12/11/2024 12:25 PM [facility] Non HDL Chol. (LDL+VLDL) 73 <145 mg/dL LAB CHEMISTRY METHOD 12/11/2024 12:25 PM [facility] Chol/HDL Ratio 2.0 0.0 - 4.4 LAB CHEMISTRY METHOD 12/11/2024 12:25 PM [facility] Blood Venous blood specimen / Unknown Venipuncture / Unknown 12/11/2024 10:33 AM EDT 12/11/2024 11:15 AM EDT us Elio Kanjolia MD LAB BLOOD ORDERABLES Final Res ult Performing Organization Address City/[facility]/ZIP Co de Phone Number [facility] [address] [place] [address], [place] [phone] * ELIZABETH IFA with titer and pattern (12/11/2024 10:33 AM EDT) Pathologist [facility] ELIZABETH Negative Negative 12/14/2024 12:27 PM EDT [facility] Blood Venous blood specimen / Unknown Venipuncture / Unknown 12/11/2024 10:33 AM EDT 12/11/2024 11:15 AM EDT Elio Taveras MD LAB BLOOD ORDERABLES Final Res ult Performing Organization Address [facility] Co de Phone Number [facility] [address] [place] [address], * Sedimentation rate (12/11/2024 10:33 AM EDT) [facility] Sed Rate 24 0 - 30 mm/hr LAB HEMETOLOGY METHOD 12/11/2024 11:29 AM EDT [facility] Blood Venous blood specimen / Unknown Venipuncture / Unknown 12/11/2024 10:33 AM EDT 12/11/2024 11:16 AM EDT Elio Taveras MD LAB BLOOD ORDERABLES Final Res ult Performing Organization Address City/[facility]/ZIP Co de Phone Number [facility] [address] [place] [address], [place] [phone] * Rheumatoid factor (12/11/2024 10:33 AM EDT) [facility] Rheumatoid Factor <10.0 <15.0 I Unit/mL LAB CHEMISTRY METHOD 12/11/2024 12:20 PM EDT [facility] Blood Venous blood specimen / Unknown Venipuncture / Unknown 12/11/2024 10:33 AM EDT 12/11/2024 11:15 AM EDT us Elio Taveras MD LAB BLOOD ORDERABLES Final Res ult [facility] [address] [place] [address], * Comprehensive metabolic panel (12/11/2024 10:33 AM EDT) Sodium 140 133 - 145 mmol/L LAB CHEMISTRY METHOD 12/11/2024 12:25 PM [facility] Potassium 4.3 3.5 - 5.5 mmol/L LAB CHEMISTRY METHOD 12/11/2024 12:25 PM [facility] Chloride 107 96 - 110 mmol/L LAB CHEMISTRY METHOD 12/11/2024 12:25 PM [facility] CO2 28 21 - 32 mmol/L LAB CHEMISTRY METHOD 12/11/2024 12:25 PM [facility] Anion Gap 5 3 - 11 LAB CHEMISTRY METHOD 12/11/2024 12:25 PM [facility] Glucose 83 70 - 100 mg/dL LAB CHEMISTRY METHOD 12/11/2024 12:25 PM [facility] BUN 14 5 - 25 mg/dL LAB CHEMISTRY METHOD 12/11/2024 12:25 PM [facility] Creatinine 0.88 0.50 - 1.10 mg/dL LAB CHEMISTRY METHOD 12/11/2024 12:25 PM [facility] eGFR 78 >=60 mL/min/1. 73m2 LAB CHEMISTRY METHOD 12/11/2024 12:25 PM [facility] Comment:Calculation based on the Chronic Kidney Disease Epidemiology Collaboration (CKD-EPI) equation refit without adjustment for race. BUN/Creatinine Ratio 15.9 LAB CHEMISTRY METHOD 12/11/2024 12:25 PM EDT [facility] Calcium 9.4 8.5 - 10.5 mg/dL LAB CHEMISTRY METHOD 12/11/2024 12:25 PM [facility] AST (SGOT) 33 10 - 42 unit/L LAB CHEMISTRY METHOD 12/11/2024 12:25 PM [facility] ALT (SGPT) 39 10 - 60 unit/L LAB CHEMISTRY METHOD 12/11/2024 12:25 PM T [facility] Alkaline Phosphatase 94 42 - 121 unit/L LAB CHEMISTRY METHOD 12/11/2024 12:25 PM T [facility] Total Protein 7.4 6.0 - 8.0 g/dL LAB CHEMISTRY METHOD 12/11/2024 12:25 PM [facility] Albumin 3.9 3.2 - 5.0 g/dL LAB CHEMISTRY METHOD 12/11/2024 12:25 PM [facility] Total Bilirubin 1.3 0.0 - 1.4 mg/dL LAB CHEMISTRY METHOD 12/11/2024 12:25 PM [facility] Blood Venous blood specimen / Unknown Venipuncture / Unknown 12/11/2024 10:33 AM EDT 12/11/2024 11:15 AM EDT us Elio Taveras MD LAB BLOOD ORDERABLES Final Res ult [facility] [address] [place] [address], * C-reactive protein (12/11/2024 10:33 AM EDT) C-Reactive Protein <0.29 <=0.50 mg/dL LAB CHEMISTRY METHOD 12/11/2024 12:25 PM [facility] Blood Venous blood specimen / Unknown Venipuncture / Unknown 12/11/2024 10:33 AM EDT 12/11/2024 11:15 AM EDT us Elio Taveras MD LAB BLOOD ORDERABLES Final Res ult Performing Organization Address City/[facility]/ZIP Co de Phone Number [facility] [address] [place] [address], [place] [phone] * Thyroid stimulating hormone (12/11/2024 10:33 AM EDT) TSH 3.16 0.40 - 4.00 mcIU/mL LAB CHEMISTRY METHOD 12/11/2024 1:29 PM EDT [facility] Blood Venous blood specimen / Unknown Venipuncture / Unknown 12/11/2024 10:33 AM EDT 12/11/2024 11:15 AM EDT us Elio Taveras MD LAB BLOOD ORDERABLES Final Res ult Performing Organization Address City/[facility]/ZIP Co de Phone Number [facility] [address] [place] [address], [place] [phone] documented in this encounter Visit Diagnoses Diagnosis Postprocedural hypothyroidism Postsurgical hypothyroidism Unspecified osteoarthritis, unspecified site Essential (primary) hypertension Unspecified essential hypertension Rheumatoid arthritis, unspecified (CMS/[facility] V24, [facility] V28) Hyperlipidemia, unspecified documented in this encounter Additional Health Concerns Infection Onset Date Last Indicated Resolved Time Respiratory Rule-Out 04/01/2025 04/01/2025 025 10:46 PM EST COVID-19 Rule-Out 04/01/2025 04/01/2025 04/01/2025 10:46 PM EST documented as of this encounter Care Teams Sql Architect Relationship Specialty Start Date End Date Elio Taveras MD [address] [place] [address] PCP - General Internal Medicine 04/21/24 documented as of this encounter
== END 2025-04-09 09:16 | disposition home or self-care (01) ==
LOC: HO.HGI 08:15
PROVIDERS: PCP Internal Medicine; Visit Provider Nurse Practitioner Family
DX: K21.9 Gastro-esophageal reflux disease without esophagitis (principal); K59.04 Chronic idiopathic constipation; R10.13 Epigastric pain; R06.2 Wheezing
CPT/HCPCS: 99215

== ENCOUNTER 2025-04-09 08:14 | Outpatient (REF) | payer OTHER, SELFPAY ==
[2025-04-09 09:19] LABS: Hematocrit 44.1 % (37.0-47.0); Hemoglobin 14.1 g/dl (12.0-16.0); Mean Corpuscular HGB Conc 32.0 g/dl (31.0-35.0); Mean Corpuscular Hemoglobin 29.0 pg (27.0-33.0); Mean Corpuscular Volume 90.7 fL (80.0-98.0); NRBC Abs Auto 0.000 X10*3/uL (0.0-0.012); NRBC Pct Auto 0.0 /100WBC (0.0-0.2); Platelet Count 180 X10*3/uL (160-400); Red Blood Count 4.86 X10*6/uL (4.20-5.50); White Blood Count 7.8 X10*3/uL (4.8-10.8)
[2025-04-09 10:03] LABS: Alanine Aminotransferase 36 U/L (0-31); Albumin Level 4.8 g/dL (3.5-5.0); Alkaline Phosphatase 107 U/L (39-117); Anion Gap 11 (12-20); Aspartate Amino Transferase 25 U/L (5-31); Blood Urea Nitrogen 18 mg/dL (9-16); Calcium 9.9 mg/dL (8.4-10.2); Carbon Dioxide 31 mmol/L (22-29); Chloride 107 mmol/L (96-108); Estimated Glomerular Filt Rate > 60; Lipase 86 U/L (8-78); Potassium 4.5 mmol/L (3.3-5.1); Sodium 144 mmol/L (135-145); Total Protein 7.9 g/dL (6.5-8.0)
== END 2025-04-09 08:15 | disposition home or self-care (01) ==
LOC: HO.LAB 08:14
PROVIDERS: PCP Internal Medicine; Visit Provider Nurse Practitioner Family
DX: K21.9 Gastro-esophageal reflux disease without esophagitis (principal); K59.04 Chronic idiopathic constipation; R10.13 Epigastric pain; J45.909 Unspecified asthma, uncomplicated; Z79.899 Other long term (current) drug therapy
CPT/HCPCS: 36415; 80053; 83690; 85027

== ENCOUNTER 2025-04-09 09:20 | Emergency (ER) | payer OTHER, SELFPAY ==
--- NOTE | ~2025-04-09 | XR_ITS ---
EXAMINATION: XR CHEST CLINICAL INFORMATION: chest pain cough COMPARISON: June 01, 2021 TECHNIQUE: Frontal view of the chest was obtained. FINDINGS: No significant abnormality is noted involving the heart, lungs, mediastinum, bony thorax or soft tissues. XR/XR chest 1V IMPRESSION: No acute disease. Electronically signed by: Hakan Kemp MD 04/09/2025 11:16 AM [facility]
--- NOTE | ~2025-04-09 | CT_ITS ---
EXAMINATION: CT ABDOMEN PELVIS WITH IV CONTRAST HISTORY: RUQ, elevated bili, elevated lipase COMPARISON: Comparison is made with the prior unenhanced CT of the abdomen and pelvis dated 04/06/2014. TECHNIQUE: CT scan of the abdomen and pelvis was performed following administration of 85 mL Omnipaque 350 using standard departmental protocol. Coronal and sagittal reformatted images were generated and reviewed. Oral contrast material was not administered at the request of the referring physician. This CT exam was performed with one or more of the following dose reduction techniques: automated exposure control, adjustment of the mA and/or kV according to patient size, use of iterative reconstruction technique. DLP: 363 mGy-cm FINDINGS: LOWER CHEST: The visualized lung bases are clear. There is no pleural effusion. CARDIOVASCULATURE: The heart is normal in size. There is no pericardial effusion. LIVER: The liver is normal in size and contour. There is a 3 mm hypodensity in the left lobe which is too small to accurately characterize. The hepatic and portal veins are patent. GALLBLADDER / BILE DUCTS: The gallbladder is unremarkable. There is no intra or extrahepatic biliary ductal dilatation. SPLEEN: The spleen is normal in size. No focal splenic lesion is identified. PANCREAS: The pancreas is unremarkable in appearance. ADRENAL GLANDS: Within normal limits. KIDNEYS/RETROPERITONEUM: No renal calculi are identified. There is no hydronephrosis. No renal masses are identified. LYMPH NODES: No abdominal or pelvic lymphadenopathy. VASCULATURE: The abdominal aorta is normal in caliber. MESENTERY/PERITONEUM: No free fluid. No masses. There is no free intraperitoneal gas. STOMACH: The stomach is collapsed, limiting evaluation. SMALL BOWEL: The small bowel is normal in caliber. COLON: There is a large amount of stool throughout the colon. APPENDIX: Normal. URINARY BLADDER/PELVIC ORGANS: The urinary bladder is unremarkable. There is a 5.0 x 4.4 x 4.0 cm mass in the uterus compatible with a fibroid. BONES / SOFT TISSUES: No suspicious bony or soft tissue abnormalities. CT/CT abdomen pelvis w IV con IMPRESSION: 1. Large amount of stool throughout the colon. 2. 5.0 x 4.4 x 4.0 cm probable uterine fibroid. Electronically signed by: Rigo Barr MD 04/09/2025 01:27 PM [facility]
--- NOTE | ~2025-04-09 | CT_ITS ---
EXAMINATION: CT HEAD WITH/WITHOUT CONTRAST CLINICAL INFORMATION: Dizziness. Blurred vision. Pain with eye movement COMPARISON: None available. TECHNIQUE: Contiguous axial imaging was performed from the skull base to vertex before and after the administration of 85 mL of Omnipaque [address] examination was performed using dose optimization techniques as appropriate, variously including the following: *Automated exposure control *Adjustment of mA and/or kV according to patient size (this includes techniques or standardized protocols for targeted exams where dose is matched to indication/reason for exam; i.e. extremities or head) *Use of iterative reconstruction technique DLP: 1250.65 mGy-cm FINDINGS: No acute intracranial hemorrhage, mass effect, midline shift, hydrocephalus or herniation. Willard-white matter differentiation is normal. Posterior cranial fossa contents demonstrated no acute hemorrhage or mass effect. Normal position of the cerebellar tonsils. Sellar/suprasellar region is normal. No abnormal enhancement within the intra-axial or the extra-axial compartment of the cranium. Calcified plaques in the cavernous supracavernous segments both ICAs. No abnormal enhancement within the intraconal or the extraconal compartments of the orbits. The ophthalmic arteries are patent. The ophthalmic veins are not enlarged/engorged. No abnormalities in the eyeballs. No air-fluid levels in the paranasal sinuses. Tympanic cavities and mastoid cells are aerated. CT/CT head/brain wo/w IV con IMPRESSION: No acute or structural brain abnormality. No abnormal enhancement. Atherosclerosis disease, intracranial ICAs. Electronically signed by: Kevin Brice MD 04/09/2025 01:29 PM ОЛЕГ
[2025-04-09 09:23] VITALS: BP 119/62; PULSE 86; RESP 16; TEMP 36.4; O2SAT 100; BMI 21.8
[2025-04-09 10:44] VITALS: BP 124/85; PULSE 79; RESP 18; O2SAT 100
--- NOTE | 2025-04-09 10:52 | ECG_ITS ---
Test Reason : dizziness Blood Pressure : */* mmHG Vent. Rate : 67 BPM Atrial Rate : 67 BPM P-R Int : 120 ms QRS Dur : 80 ms QT Int : 390 ms P-R-T Axes : 69 78 73 degrees QTcB Int : 412 ms Normal sinus rhythm Normal ECG When compared with ECG of 12-Oct-2012 15:50, No significant changes seen Referred By: Lucina Newman Electronically Signed By: RIKY OTTO
--- NOTE | 2025-04-09 10:52 | ED.GENADULT ---
HPI - General Adult General Chief complaint: Weakness Stated complaint: dizzy, body pain Time Seen by Provider: 04/09/25 09:43 Source: patient, RN notes reviewed and old records reviewed History of Present Illness ED Provider: NINA Newman HPI narrative: 54-year-old female with medical history of GERD, chronic idiopathic constipation, asthma presents to the ED due to 1 week of dizziness, malaise, body aches, cough, chest tightness, and left-sided upper back pain. Patient states she had started feeling unwell approximately 1 week ago and her symptoms have been worsening. Patient reports she was seen at [facility] ED last week and was discharged with a course of prednisone. Patient states she finished the course of prednisone however felt that her nasal congestion and headaches were worsening and presented to urgent care 2 days ago she has received a prescription for doxycycline that the patient has been taking. patient reports intermittent left-sided chest pain that starts underneath the left breast with a pinching sensation. Patient explains she was at [facility] today for PFTs when she felt increased dizziness, and increased left-sided chest discomfort, and left-sided upper back pain and was brought down to the ED for further evaluation. 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 MD complaint: dizziness, malaise, body ahces, chest tightness, L upper back pain Related Data Home Medications ?Medication ?Instructions ?Recorded ?Confirmed magnesium oxide 400 mg PO DAILY 02/03/24 12/22/24 atorvastatin 40 mg tablet 40 mg PO DAILY 08/21/24 12/22/24 Previous Rx's ?Medication ?Instructions ?Recorded bisacodyl 5 mg tablet,delayed 10 mg (2 x 5 mg) PO BEDTIME #180 08/21/24 release (Dulcolax (bisacodyl)) tabs magnesium citrate (Citrate of 150 ml PO DAILY PRN constipation 08/21/24 Magnesia oral) #296 mL pantoprazole 40 mg tablet,delayed 40 mg PO DAILY 90 days #90 tabs 04/02/25 release albuterol sulfate 90 mcg/actuation 2 inh inhalation Q4-6H PRN 04/09/25 aerosol inhaler (Ventolin HFA) shortness of breath or wheezing #6.7 grams simethicone 125 mg chewable tablet 125 mg PO BID-TID PRN abdominal 11/21/25 (Gas Relief (simethicone)) distention #90 tabs Allergies Allergy/AdvReac Type Severity Reaction Status Date / Time aspirin (Aspirin) Allergy Mild UPSET Verified 04/09/25 09:26 STOMACH, RASH Review of Systems Review of Systems: Yes all other systems are reviewed and are negative [facility] Past Medical History Attestation statement: The following information was validated with the patient. Source: old records reviewed and nursing notes reviewed Medical History Chronic idiopathic constipation GERD (gastroesophageal reflux disease) Postprandial epigastric pain Adopted Asthma History of ganglion cyst Surgical History History of esophagogastroduodenoscopy (EGD) Hx of colonoscopy History of surgical removal of ganglion cyst Family History Family History Other Adopted Social History Social History Household Members: Children Alcohol intake: never Patient Tobacco Use Status: Never used Tobacco Smoked in Last 30 Days: No Use of substances other than those prescribed or required for medical reasons: No Advance Directives: No Advance Directives Information Provided: Yes Current occupational status: employed 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 HEENT: ?NC, AT. MMM. EOMI, clear conjunctiva, oropharynx clear, TTP of maxillary sinuses, and pain with extraocular eye movements, following my finger does increase her dizziness NECK: ?Supple without lymphadenopathy.? No stiffness or restricted ROM. HEART:? Normal rate and regular rhythm, normal S1/S2, no m/r/g LUNGS:? Diminished breath sounds throughout all lung abel, mild expiratory wheeze noted ABDOMEN: ?Soft, nontender, nondistended with good bowel sounds heard. BACK: No CVAT, no obvious deformity. EXTREMITIES: ?Without cyanosis, clubbing or edema. NEUROLOGICAL: ?Grossly nonfocal. Alert and oriented, moving all 4 extremities. Observed to ambulate with normal gait. Skin: ?Warm and dry without any rash. Medications Administered Discontinued Medications Generic Name Dose Route Start Last Admin Trade Name Freq PRN Reason Stop Dose Admin Lactated Ringer's 1,000 mls @ 999 mls/hr 04/09/25 10:55 04/09/25 13:07 Lr IV 04/09/25 11:55 Infused .Q1H1M ONE Infusion Acetaminophen 1,000 mg in 100 mls @ 400 mls/hr 04/09/25 10:55 04/09/25 12:11 Ofirmev IV 04/09/25 11:09 Infused ONCE ONE Infusion Lactated Ringer's 1,000 mls @ 999 mls/hr 04/09/25 13:31 04/09/25 14:40 Lr IV 04/09/25 14:31 Infused .Q1H1M ONE Infusion Iohexol 100 ml 04/09/25 13:04 04/09/25 13:04 Iohexol 350 Mg/Ml 100 Ml Infus..Btl IV 04/09/25 13:05 85 ml ONCE ONE Administration Ketorolac Tromethamine 15 mg 04/09/25 14:35 04/09/25 14:45 Ketorolac Tromethamine 15 Mg/Ml Vial IVPUSH 04/09/25 14:36 15 mg ONCE ONE Administration Lidocaine 1 patch 04/09/25 12:55 04/09/25 13:06 Lidocaine 4 % Patch Adh..Patch TRANSDERMA 04/09/25 12:56 1 patch ONCE ONE Administration Protocol Meclizine HCl 25 mg 04/09/25 11:05 04/09/25 11:18 Meclizine Hcl 25 Mg Tablet PO 04/09/25 11:06 25 mg ONCE ONE Administration Medical Decision Making Medical Decision Making MDM Narrative: 54-year-old female with medical history of GERD, chronic idiopathic constipation, asthma presents to the ED due to 1 week of dizziness, malaise, body aches, cough, chest tightness, and left-sided upper back pain. Was seen at [facility] ED last week and D/C with course of prednisone that she completed. Went to 2 days ago and was DC with doxycycline for sinusitis. She has been taking the antibiotics. Was being seen at [facility] pulmonology for PFT's and was sent to ED for further evaluation of her symptoms. plan: Labs, EKG, CXR, UA, bronchodilator protocol, CT head w and wo contrast - Medicated with 1L IV fluids, 25mg po meclizine, 1g IV tylenol EKG reveals normal sinus rhythm without ST-elevation/depression, nonspecific T-wave abnormality in aVL, no prolonged QT troponin x2 undetectable at <2.7 labs without leukocytosis/leukopenia, no evidence of anemia, carbon dioxide elevated at 30 however this is around patient's baseline, elevated bilirubin of 1.5, elevated ALT at 38, elevated lipase of 80. viral serology negative. UA without blood or evidence of infection. - Will obtain CT abdomen pelvis for further evaluation of elevated bilirubin and lipase. CXR WNL CT head brain with and without contrast negative for acute structural brain abnormality, abnormal enhancement, however does reveal atherosclerosis disease of the intracranial ICAs. CT abdomen and pelvis without pancreatitis, or biliary disease, does show stool burden and uterine fibroid. Patient's symptoms have improved after medication. Patient was evaluated by respiratory therapy who did not think that patient needed breathing treatment today. Patient was discharged from [facility] last week with 5 day course of 20mg BID prednisone that she finished 3 days ago on 04/06. Patient currently on doxycycline for sinusitis, and has been on abx for 2 days. No indication for more steroids at this time. Patient's labs without leukocytosis/ leukopenia, chest x-ray WNL, no indication for antibiotics at this time. Patients symptoms most likely due to viral syndrome as she reports many sick contacts from working within the nursing home. Patient with a tender area to palpation of the trapezius down around the scapula that I am able to reproduce with palpation, no injury, I explained her her to treat her pain with tylenol and ibuprofen. I will refill patients albuterol inhaler that she can use as her symptoms improve. I have counseled patient to finish her course of doxycycline for sinusitis. Patient has follow up with pulmonology, and GI for elevated LFT's. I counseled patient to follow up with her primary care doctor to ensure resolution of her symptoms. Patient states she has follow up in july with gynecology. Patient feels well enough to go home for self-care, patient is in agreement with the plan. Differential Diagnosis Differential Diagnoses: The differential diagnosis associated with the presentation includes ACS Intracranial abscess Bacterial rhinosinusitis Preseptal cellulitis Orbital cellulitis COVID Flu Viral illness Admission/Observation Consideration of admission/observation: Escalation of care including admission/observation considered I considered admission however patient without hypoxia, tachycardia, tachypnea, no white blood cell count, no elevated troponin, no indication for admission at this time. Lab Data MDM Lab Attestation statement: I reviewed the patient's lab results. 04/09/25 11:02 04/09/25 11:02 Labs: Lab Results 04/09/25 04/09/25 04/09/25 Range/Units 11:02 11:10 13:51 WBC 8.4 (4.8-10.8) X10*3/uL RBC 4.61 (4.20-5.50) X10*6/uL Hgb 13.4 (12.0-16.0) g/dl Hct 41.0 (37.0-47.0) % MCV 88.9 (80.0-98.0) fL MCH 29.1 (27.0-33.0) pg MCHC 32.7 (31.0-35.0) g/dl RDW 13.6 (11.0-16.0) % Plt Count 176 (160-400) X10*3/uL MPV 10.6 (9.4-12.3) fL Immature Gran % (Auto) 1.1 H (0.0-0.4) % Neut % (Auto) 62.5 (45-73) % Lymph % (Auto) 24.6 (20-40) % [place] % (Auto) 10.7 (2-11) % Eos % (Auto) 0.7 (0-4) % Baso % (Auto) 0.4 (0-2) % Lymph # (Auto) 2.1 (1.2-4.9) X10*3/uL [place] # (Auto) 0.9 (0.1-1.2) X10*3/uL Eos # (Auto) 0.1 (0.0-0.4) X10*3/uL Baso # (Auto) 0.0 (0.0-0.2) X10*3/uL Abs Immat Gran (auto) 0.09 H (0.00-0.03) X10*3/uL Absolute Neuts (auto) 5.3 (2.0-8.3) x10*3/uL Absolute Nucleated RBC 0.000 (0.0-0.012) X10*3/uL Nucleated RBC % (auto) 0.0 (0.0-0.2) /100WBC Sodium 143 (135-145) mmol/L Potassium 4.9 (3.3-5.1) mmol/L Chloride 106 (96-108) mmol/L Carbon Dioxide 30 H (22-29) mmol/L Anion Gap 12 (12-20) BUN 19 H (9-16) mg/dL Creatinine 0.85 (0.5-1.4) mg/dL Estim Creat Clear Calc 64.5 Estimated GFR > 60 Random Glucose 93 (60-115) mg/dL Calcium 9.6 (8.4-10.2) mg/dL Total Bilirubin 1.5 H (0.0-1.0) mg/dL AST 24 (5-31) U/L ALT 38 H (0-31) U/L Alkaline Phosphatase 101 (39-117) U/L Troponin I High Sens < 2.7 < 2.7 (<3.5-17.0) ng/L Total Protein 7.4 (6.5-8.0) g/dL Albumin 4.4 (3.5-5.0) g/dL Lipase 80 H (8-78) U/L Urine Color Yellow Urine Appearance Clear Urine pH 7.0 (5.0-9.0) Ur Specific [place] 1.015 (1.005-1.025) Urine Protein Negative (Neg-Trace) mg/dL Urine Glucose (UA) Negative (Negative) mg/dL Urine Ketones Negative (Negative) mg/dL Urine Blood Negative (Negative) Urine Nitrite Negative (Negative) Ur Leukocyte Esterase Negative (Negative) Influenza Type A (PCR) NEGATIVE (Negative) Influenza Type B (PCR) NEGATIVE (Negative) RSV RNA Qual (PCR) NEGATIVE (Negative) SARS-CoV-2 RNA (RT-PCR) NEGATIVE (Negative) Independent Interpretation I performed an independent interpretation of an: EKG, Plain X-Ray and CT Scan Interpretation: I personally interpreted the EKG which reveals normal sinus rhythm without ST-elevation/depression, T-wave abnormality in aVL however this is nonspecific no prolonged QT Vent. Rate : 67 BPM Atrial Rate : 67 BPM P-R Int : 120 ms QRS Dur : 80 ms QT Int : 390 ms P-R-T Axes : 69 78 73 degrees QTcB Int : 412 ms Normal sinus rhythm Normal ECG When compared with ECG of 12-Oct-2012 15:50, MANUAL COMPARISON REQUIRED PREVIOUS ECG IS INCOMPATIBLE I personally interpreted the CXR which was negative for infiltrates, consolidations, I agree with the radiologist's interpretation I personally interpreted the CT head/ brain which was negative for acute intracranial abnormalities, I agree with the radiologist's interpretation I personally interpreted the CT abdomen and pelvis which was negative for pancreatitis, or biliary disease, I agree with the radiologist's interpretation Radiology Impression Discussion of test interpretation with radiology: I have reviewed the radiologist's reading. Radiologist Impression: CT head w/wo FINDINGS: No acute intracranial hemorrhage, mass effect, midline shift, hydrocephalus or herniation. Willard-white matter differentiation is normal. Posterior cranial fossa contents demonstrated no acute hemorrhage or mass effect. Normal position of the cerebellar tonsils. Sellar/suprasellar region is normal. No abnormal enhancement within the intra-axial or the extra-axial compartment of the cranium. Calcified plaques in the cavernous supracavernous segments both ICAs. No abnormal enhancement within the intraconal or the extraconal compartments of the orbits. The ophthalmic arteries are patent. The ophthalmic veins are not enlarged/engorged. No abnormalities in the eyeballs. No air-fluid levels in the paranasal sinuses. Tympanic cavities and mastoid cells are aerated. CT/CT head/brain wo/w IV con IMPRESSION: No acute or structural brain abnormality. No abnormal enhancement. Atherosclerosis disease, intracranial ICAs. Electronically signed by: Kevin Brice MD 04/09/2025 01:29 PM [facility] Dictated By: Kevin Alegria MD Signed By: <Electronically signed by Kevin Carpenter MD in OV> 04/09/[address] abdomen and pelvis FINDINGS: LOWER CHEST: The visualized lung bases are clear. There is no pleural effusion. CARDIOVASCULATURE: The heart is normal in size. There is no pericardial effusion. LIVER: The liver is normal in size and contour. There is a 3 mm hypodensity in the left lobe which is too small to accurately characterize. The hepatic and portal veins are patent. GALLBLADDER / BILE DUCTS: The gallbladder is unremarkable. There is no intra or extrahepatic biliary ductal dilatation. SPLEEN: The spleen is normal in size. No focal splenic lesion is identified. PANCREAS: The pancreas is unremarkable in appearance. ADRENAL GLANDS: Within normal limits. KIDNEYS/RETROPERITONEUM: No renal calculi are identified. There is no hydronephrosis. No renal masses are identified. LYMPH NODES: No abdominal or pelvic lymphadenopathy. VASCULATURE: The abdominal aorta is normal in caliber. MESENTERY/PERITONEUM: No free fluid. No masses. There is no free intraperitoneal gas. STOMACH: The stomach is collapsed, limiting evaluation. SMALL BOWEL: The small bowel is normal in caliber. COLON: There is a large amount of stool throughout the colon. APPENDIX: Normal. URINARY BLADDER/PELVIC ORGANS: The urinary bladder is unremarkable. There is a 5.0 x 4.4 x 4.0 cm mass in the uterus compatible with a fibroid. BONES / SOFT TISSUES: No suspicious bony or soft tissue abnormalities. CT/CT abdomen pelvis w IV con IMPRESSION: 1. Large amount of stool throughout the colon. 2. 5.0 x 4.4 x 4.0 cm probable uterine fibroid. Electronically signed by: Rigo Barr MD 04/09/2025 01:27 PM EST RP CXR FINDINGS: No significant abnormality is noted involving the heart, lungs, mediastinum, bony thorax or soft tissues. XR/XR chest 1V IMPRESSION: No acute disease. Electronically signed by: Hakan Kemp MD 04/09/2025 11:16 AM EST RP Dictated By: Hakan eKmp MD Signed By: <Electronically signed by Hakan Kemp MD in OV> 04/09/25 7490 External Record Review External record reviewed: Inpatient record, Office record, Outpatient record and Prior outpatient labs Prescription Management I considered prescription management with: Antibiotic ( I considered antibiotics however patient already on doxycycline for sinusitis.) and Other ( I considered prednisone however patient just finished a 5 day course of prednisone 3 days ago on 04/06, no indication ) Chronic Conditions Patient?s care impacted by: Other ( chronic idiopathic constipation, GERD, asthma) Discharge Plan Discharge Clinical Impression: Viral illness Patient Disposition: Home, Self-Care Instructions: Viral Syndrome (ED) Additional Instructions: You were evaluated in the emergency department today due to dizziness, general malaise. Your blood work was reassuring as there was no elevation in white blood cell count, no evidence of anemia, You did have elevated bilirubin and ALT which is an enzyme given off of the liver however you were following [facility] GI for these findings. Your head/ brain CT was negative for any emergent findings or infections, however did reveal calcium deposits within both of your internal carotid arteries. Your abdomen and pelvis CT did reveal a small uterine fibroid, and a large amount of stool within the colon. Your symptoms are most likely due to a viral infection which is self-limiting. I recommend you get plenty of hydration through sports drinks such as Gatorade, Pedialyte, Powerade and getting plenty of rest as your symptoms improve. You can also use saline spray for your sinus infection, and humidifier in your room for further aid in your symptoms. For pain and body aches please take 500 mg of Tylenol, 400 mg of ibuprofen every 6 hours. For constipation I recommend mixing MiraLax in 8 oz of water 2 to 3 times a day until liquid stool is achieved. You are being discharged home with albuterol inhaler. You just finished a course of prednisone, there is no indication to prolong your steroids at this time. You are already on a course of doxycycline which is the appropriate therapy for sinus infection. Please continue to take this medication and complete the entire course. Please follow up with [facility] GI doctors on your elevated bilirubin, and lipase. Prescriptions: New albuterol sulfate [Ventolin HFA] 90 mcg/actuation HFA aerosol inhaler 2 inh inhalation Q4-6H PRN (Reason: shortness of breath or wheezing) Qty: 6.7 0RF No Action pantoprazole 40 mg tablet,delayed release (DR/EC) 40 mg PO DAILY 90 Days Qty: 90 3RF Rx Instructions: take one tablet half an hour before breakfast magnesium oxide 400 mg magnesium capsule 400 mg PO DAILY atorvastatin 40 mg tablet 40 mg PO DAILY magnesium citrate [Citrate of Magnesia] Solution 150 ml PO DAILY PRN (Reason: constipation) Qty: 296 5RF bisacodyl [Dulcolax (bisacodyl)] 5 mg tablet,delayed release (DR/EC) 10 mg PO BEDTIME Qty: 180 4RF simethicone [Gas Relief (simethicone)] 125 mg tablet,chewable 125 mg PO BID-TID PRN (Reason: abdominal distention) Qty: 90 3RF Stand Alone Forms: Work/School Release Print Language: Ukrainian
--- NOTE | 2025-04-09 11:06 | PC.RT ---
Pt assessed by RT per bronchodilator protocol. Pt l/s clear bilateral, SAT 97% on RA, RR 15. Pt has no hx of smoking, not in distress at this time, able to speak in full sentences. Pt states she was given albuterol at [facility] recently and it made her feel sick. Pt does not require breathing tx at this time. RN aware.
[2025-04-09 11:07] LABS: MANUAL DIFF FLAG NO
[2025-04-09 11:10] LABS: Appearance Urine Clear; Glucose Urine UA Negative (Negative); PH 7.0 (5.0-9.0); Specific Gravity - Urine 1.015 (1.005-1.025)
[2025-04-09] MEDS: Lactated Ringers 1,000 ML 999 ML IV ×2 (11:18→13:39)
[2025-04-09 11:25] LABS: Hematocrit 41.0 % (37.0-47.0); Hemoglobin 13.4 g/dl (12.0-16.0); Imm Gran Abs Auto 0.09 X10*3/uL (0.00-0.03); Imm Gran Pct Auto 1.1 % (0.0-0.4); Lymphocytes Absolute Auto 2.1 X10*3/uL (1.2-4.9); Mean Corpuscular HGB Conc 32.7 g/dl (31.0-35.0); Mean Corpuscular Hemoglobin 29.1 pg (27.0-33.0); Mean Corpuscular Volume 88.9 fL (80.0-98.0); NRBC Abs Auto 0.000 X10*3/uL (0.0-0.012); NRBC Pct Auto 0.0 /100WBC (0.0-0.2); Platelet Count 176 X10*3/uL (160-400); Red Blood Count 4.61 X10*6/uL (4.20-5.50); White Blood Count 8.4 X10*3/uL (4.8-10.8)
[2025-04-09 11:26] LABS: Alanine Aminotransferase 38 U/L (0-31); Albumin Level 4.4 g/dL (3.5-5.0); Alkaline Phosphatase 101 U/L (39-117); Anion Gap 12 (12-20); Aspartate Amino Transferase 24 U/L (5-31); Blood Urea Nitrogen 19 mg/dL (9-16); Calcium 9.6 mg/dL (8.4-10.2); Carbon Dioxide 30 mmol/L (22-29); Chloride 106 mmol/L (96-108); Creatinine Clr Calc Pharmacy 64.5; Estimated Glomerular Filt Rate > 60; Lipase 80 U/L (8-78); Potassium 4.9 mmol/L (3.3-5.1); Sodium 143 mmol/L (135-145); Total Protein 7.4 g/dL (6.5-8.0)
--- NOTE | 2025-04-09 11:33 | PC.NURSE ---
pt alert and oriented, skin appropriate for ethnicity, respirations even and unlabored, ls diminished, pt is reporting not feeling well for about on e week, minim dry cough, already treated for sinus infection with ABX, pt is reporting chest tightness/burning and pain in the left upper back area, dizziness on and off sometimes spinning in circles sometimes swaying also is saying that her vision has been blurry on and off for a week, and just generlaized weakness
[2025-04-09 11:41] LABS: Troponin-I High Sensitivity < 2.7 ng/L (<3.5-17.0)
[2025-04-09 11:54] LABS: Resp Syncy Virus RNA Qual PCR NEGATIVE (Negative); SARS COV2 PCR INHOUSE NEGATIVE (Negative)
[2025-04-09 12:00] VITALS: BP 111/54; PULSE 58; TEMP 36.4; O2SAT 100
[2025-04-09] MEDS: iohexoL 350 MG/ML 100 ML INFUS..BTL IV (13:04)
[2025-04-09] MEDS: Lidocaine 4 % Patch ADH..PATCH 1 PATCH TRANSDERMA (13:06)
[2025-04-09 14:19] LABS: Troponin-I High Sensitivity < 2.7 ng/L (<3.5-17.0)
[2025-04-09 14:47] VITALS: BP 119/53; PULSE 54; RESP 18; TEMP 36.4; O2SAT 99
[2025-04-09 15:40] VITALS: BP 119/53; PULSE 54; RESP 18; TEMP 36.4; O2SAT 99
== END 2025-04-09 15:42 | disposition home or self-care (01) ==
PROVIDERS: Emergency Provider Emergency Medicine
DX: B34.9 Viral infection, unspecified (principal); R42 Dizziness and giddiness; M79.10 Myalgia, unspecified site; R05.9 Cough, unspecified; R07.89 Other chest pain; M54.6 Pain in thoracic spine; Z03.818 Encounter for observation for suspected exposure to other biological agents ruled out; Z79.899 Other long term (current) drug therapy
CPT/HCPCS: 36415; 70470; 71045; 74177; 80053; 81003; 83690; 84484; 85025; 87637; 93005; 96365; 96366; 96367; 96375; 99285; J0131; J1885; J7120; Q9967

== ENCOUNTER → 2025-04-09 10:52 | Outpatient (BNV) | payer OTHER, SELFPAY | PROVIDERS: Emergency Provider Emergency Medicine; Visit Provider Radiology Diagnostic Radiology | DX: R74.8 Abnormal levels of other serum enzymes (principal); E80.6 Other disorders of bilirubin metabolism; I67.2 Cerebral atherosclerosis; R07.9 Chest pain, unspecified; R05.9 Cough, unspecified | CPT/HCPCS: 70470; 71045; 74177 ==

== ENCOUNTER → 2025-04-09 10:52 | Outpatient (BNV) | payer OTHER, SELFPAY | PROVIDERS: Emergency Provider Emergency Medicine; Visit Provider Internal Medicine | DX: R42 Dizziness and giddiness (principal) | CPT/HCPCS: 93010 ==

== ENCOUNTER 2025-05-19 13:42 | Outpatient (REF) | payer OTHER, SELFPAY ==
[2025-05-19 14:30] LABS: MANUAL DIFF FLAG NO
[2025-05-19 14:55] LABS: Hematocrit 36.2 % (37.0-47.0); Hemoglobin 11.6 g/dl (12.0-16.0); Imm Gran Abs Auto 0.02 X10*3/uL (0.00-0.03); Imm Gran Pct Auto 0.3 % (0.0-0.4); Lymphocytes Absolute Auto 1.8 X10*3/uL (1.2-4.9); Mean Corpuscular HGB Conc 32.0 g/dl (31.0-35.0); Mean Corpuscular Hemoglobin 29.1 pg (27.0-33.0); Mean Corpuscular Volume 90.7 fL (80.0-98.0); NRBC Abs Auto 0.000 X10*3/uL (0.0-0.012); NRBC Pct Auto 0.0 /100WBC (0.0-0.2); Platelet Count 162 X10*3/uL (160-400); Red Blood Count 3.99 X10*6/uL (4.20-5.50); White Blood Count 6.4 X10*3/uL (4.8-10.8)
--- OUTSIDE RECORDS SUMMARY | 2025-05-19 15:27 | XMS_ITS | Encounter Summary ---
Author Organization [facility] Address [address] [place] [address] Care Team Providers Care Residential Construction Instructor Name Role Phone Elio Taveras MD Primary Care Provider [phone] Encounter Details Date Type Department Care Team (Latest Contact Info) Description 07/15/2024 Lab Requisition [facility] - Main Lab [address] [place] [id number] Elio Taveras MD [address] [place] [address] Postprocedural hypothyroidism; Unspecified osteoarthritis, unspecified site; Essential [...] LAB CHEMISTRY METHOD 12/11/2024 12:25 PM EDT [facility] Triglycerides 81 0 - 150 mg/dL LAB CHEMISTRY METHOD 12/11/2024 12:25 PM EDT [facility] HDL 75 >=40 mg/dL LAB CHEMISTRY METHOD 12/11/2024 12:25 PM T [facility] LDL Calculated 57 0 - 100 mg/dL LAB CHEMISTRY METHOD 12/11/2024 12:25 PM [facility] VLDL Cholesterol Sha 16.2 mg/dL LAB CHEMISTRY METHOD 12/11/2024 12:25 PM [facility] Non HDL Chol. (LDL+VLDL) 73 <145 mg/dL LAB CHEMISTRY METHOD 12/11/2024 12:25 PM [facility] Chol/HDL Ratio 2.0 0.0 - 4.4 LAB CHEMISTRY METHOD 12/11/2024 12:25 PM [facility] Blood Venous blood specimen / Unknown Venipuncture / Unknown 12/11/2024 10:33 AM EDT 12/11/2024 11:15 AM EDT us Elio Kanjolia MD LAB BLOOD ORDERABLES Final Res ult Performing Organization Address City/[facility]/ZIP Co de Phone Number [facility] [address] [place] [address], [place] [phone] * ELIZABETH IFA with titer and pattern (12/11/2024 10:33 AM EDT) Pathologist [facility] ELIZABETH Negative Negative 12/14/2024 12:27 PM EDT [facility] Blood Venous blood specimen / Unknown Venipuncture / Unknown 12/11/2024 10:33 AM EDT 12/11/2024 11:15 AM EDT Elio Taveras MD LAB BLOOD ORDERABLES Final Res ult Performing Organization Address [facility] Co de Phone Number [facility] [address] [place] [address], * Sedimentation rate (12/11/2024 10:33 AM EDT) [facility] Sed Rate 24 0 - 30 mm/hr LAB HEMETOLOGY METHOD 12/11/2024 11:29 AM EDT [facility] Blood Venous blood specimen / Unknown Venipuncture / Unknown 12/11/2024 10:33 AM EDT 12/11/2024 11:16 AM EDT Elio Taveras MD LAB BLOOD ORDERABLES Final Res ult Performing Organization Address City/[facility]/ZIP Co de Phone Number [facility] [address] [place] [address], [place] [phone] * Rheumatoid factor (12/11/2024 10:33 AM EDT) [facility] Rheumatoid Factor <10.0 <15.0 I Unit/mL LAB CHEMISTRY METHOD 12/11/2024 12:20 PM EDT [facility] Blood Venous blood specimen / Unknown Venipuncture / Unknown 12/11/2024 10:33 AM EDT 12/11/2024 11:15 AM EDT us Elio Taveras MD LAB BLOOD ORDERABLES Final Res ult [facility] [address] [place] [address], * Comprehensive metabolic panel (12/11/2024 10:33 AM EDT) Sodium 140 133 - 145 mmol/L LAB CHEMISTRY METHOD 12/11/2024 12:25 PM [facility] Potassium 4.3 3.5 - 5.5 mmol/L LAB CHEMISTRY METHOD 12/11/2024 12:25 PM [facility] Chloride 107 96 - 110 mmol/L LAB CHEMISTRY METHOD 12/11/2024 12:25 PM [facility] CO2 28 21 - 32 mmol/L LAB CHEMISTRY METHOD 12/11/2024 12:25 PM [facility] Anion Gap 5 3 - 11 LAB CHEMISTRY METHOD 12/11/2024 12:25 PM [facility] Glucose 83 70 - 100 mg/dL LAB CHEMISTRY METHOD 12/11/2024 12:25 PM [facility] BUN 14 5 - 25 mg/dL LAB CHEMISTRY METHOD 12/11/2024 12:25 PM [facility] Creatinine 0.88 0.50 - 1.10 mg/dL LAB CHEMISTRY METHOD 12/11/2024 12:25 PM [facility] eGFR 78 >=60 mL/min/1. 73m2 LAB CHEMISTRY METHOD 12/11/2024 12:25 PM [facility] Comment:Calculation based on the Chronic Kidney Disease Epidemiology Collaboration (CKD-EPI) equation refit without adjustment for race. BUN/Creatinine Ratio 15.9 LAB CHEMISTRY METHOD 12/11/2024 12:25 PM EDT [facility] Calcium 9.4 8.5 - 10.5 mg/dL LAB CHEMISTRY METHOD 12/11/2024 12:25 PM [facility] AST (SGOT) 33 10 - 42 unit/L LAB CHEMISTRY METHOD 12/11/2024 12:25 PM [facility] ALT (SGPT) 39 10 - 60 unit/L LAB CHEMISTRY METHOD 12/11/2024 12:25 PM T [facility] Alkaline Phosphatase 94 42 - 121 unit/L LAB CHEMISTRY METHOD 12/11/2024 12:25 PM T [facility] Total Protein 7.4 6.0 - 8.0 g/dL LAB CHEMISTRY METHOD 12/11/2024 12:25 PM [facility] Albumin 3.9 3.2 - 5.0 g/dL LAB CHEMISTRY METHOD 12/11/2024 12:25 PM [facility] Total Bilirubin 1.3 0.0 - 1.4 mg/dL LAB CHEMISTRY METHOD 12/11/2024 12:25 PM [facility] Blood Venous blood specimen / Unknown Venipuncture / Unknown 12/11/2024 10:33 AM EDT 12/11/2024 11:15 AM EDT us Elio Taveras MD LAB BLOOD ORDERABLES Final Res ult [facility] [address] [place] [address], * C-reactive protein (12/11/2024 10:33 AM EDT) C-Reactive Protein <0.29 <=0.50 mg/dL LAB CHEMISTRY METHOD 12/11/2024 12:25 PM [facility] Blood Venous blood specimen / Unknown Venipuncture / Unknown 12/11/2024 10:33 AM EDT 12/11/2024 11:15 AM EDT us Elio Taveras MD LAB BLOOD ORDERABLES Final Res ult Performing Organization Address City/[facility]/ZIP Co de Phone Number [facility] [address] [place] [address], [place] [phone] * Thyroid stimulating hormone (12/11/2024 10:33 AM EDT) TSH 3.16 0.40 - 4.00 mcIU/mL LAB CHEMISTRY METHOD 12/11/2024 1:29 PM EDT [facility] Blood Venous blood specimen / Unknown Venipuncture / Unknown 12/11/2024 10:33 AM EDT 12/11/2024 11:15 AM EDT us Elio Taveras MD LAB BLOOD ORDERABLES Final Res ult Performing Organization Address City/[facility]/ZIP Co de Phone Number [facility] [address] [place] [address], [place] [phone] documented in this encounter Visit Diagnoses Diagnosis Postprocedural hypothyroidism Postsurgical hypothyroidism Unspecified osteoarthritis, unspecified site Essential (primary) hypertension Unspecified essential hypertension Rheumatoid arthritis, unspecified (CMS/[facility] V24, [facility] V28) Hyperlipidemia, unspecified documented in this encounter Additional Health Concerns Infection Onset Date Last Indicated Resolved Time Respiratory Rule-Out 04/01/2025 04/01/2025 025 10:46 PM EST COVID-19 Rule-Out 04/01/2025 04/01/2025 04/01/2025 10:46 PM EST documented as of this encounter Care Teams Residential Construction Instructor Relationship Specialty Start Date End Date Elio Taveras MD [address] [place] [address] PCP - General Internal Medicine 04/21/24 documented as of this encounter
--- OUTSIDE RECORDS SUMMARY | 2025-05-19 15:28 | XMS_ITS | Clinical Summary ---
Author Organization [address] Address [address] [place] [id number] Phone Care Team Providers Care Sas Clinical Programmer Name Role Phone Elio Taveras MD Primary Care Provider [phone] Allergies Active Allergy Reactions Criticality Noted Date [...] 12:05 PM EST Lab Draw Station - [address] [place] [phone] Myxedema heart disease (Primary Dx); Hyperlipemia; Generalized anxiety disorder; Constipation; Senile arthritis; Frequent bowel movements; Cramp of limb; Body mass index (BMI) of 22.0-22.9 in adult 04/01/2025 7:58 PM EST - 04/01/2025 11:00 PM EST Emergency [facility] Emergency [address] [place] [phone] Gt Abad MD Exacerbation of asthma, unspecified [...] on file Sexual Orientation Not on file Last Filed Vital Signs Vital Sign Reading [...] VIEWS STAT 04/01/2025 10:0 7 PM EST [id number], RSV, FLU A AND B QUALITATIVE RT-PCR, [...] LAB CHEMISTRY METHOD 04/02/2025 3:28 PM EST [facility] Microalb, Ur <5.0 0.0 - 29.0 mg/L LAB CHEMISTRY METHOD 04/02/2025 3:28 PM EST [facility] Microalb/Creat Ratio <5 <30 mg/g creat LAB CHEMISTRY METHOD 04/02/2025 3:28 PM EST [facility] Urine Urine specimen obtained by clean catch procedure / Unknown Non-blood Collection / Unknown 04/02/2025 12:17 PM EST 04/02/2025 12:25 PM EST us Elio Taveras MD LAB URINE ORDERABLES Final Res ult [facility] [address] [place] [address], [place] [phone] * Lipid panel with reflex to direct LDL (04/02/2025 12:12 PM EST) Cholesterol 162 0 - 200 mg/dL LAB CHEMISTRY METHOD 04/02/2025 1:51 PM EST [facility] Triglycerides 110 0 - 150 mg/dL LAB CHEMISTRY METHOD 04/02/2025 1:51 PM EST [facility] HDL 77 >=40 mg/dL LAB CHEMISTRY METHOD 04/02/2025 1:51 PM EST [facility] LDL Calculated 63 0 - 100 mg/dL LAB CHEMISTRY METHOD 04/02/2025 1:51 PM [facility] Comment:Estimated LDL Calcul ated using equation: Total cholesterol - HDL cholesterol - (Triglycerides/5) VLDL Cholesterol Sha 22 mg/dL LAB CHEMISTRY METHOD 04/02/2025 1:51 PM EST [facility] Non HDL Chol. (LDL+VLDL) 85 <145 mg/dL LAB CHEMISTRY METHOD 04/02/2025 1:51 PM [facility] Chol/HDL Ratio 2.1 0.0 - 4.4 LAB CHEMISTRY METHOD 04/02/2025 1:51 PM [facility] Blood Venous blood specimen / Unknown Venipuncture / Unknown 04/02/2025 12:12 PM EST 04/02/2025 12:25 PM EST us Elio Taveras MD LAB BLOOD ORDERABLES Final Res ult [facility] [address] [place] [address], [place] [phone] * (ABNORMAL) CBC auto differential (04/02/2025 12:12 PM EST) Only the most recent of2 resultswithin the time period is included. WBC 6.0 4.8 - 10.8 K/mcL LAB HEMETOLOGY METHOD 04/02/2025 12:33 PM [facility] RBC 4.30 3.80 - 4.80 M/mcL LAB HEMETOLOGY METHOD 04/02/2025 12:33 PM [facility] Hemoglobin 12.6 11.5 - 16.0 g/dL LAB HEMETOLOGY METHOD 04/02/2025 12:33 PM [facility] Hematocrit 39.0 35.0 - 47.0 % LAB HEMETOLOGY METHOD 04/02/2025 12:33 PM [facility] MCV 91.1 79.0 - 98.0 FL LAB HEMETOLOGY METHOD 04/02/2025 12:33 PM [facility] MCH 29.4 27.0 - 32.0 pcg LAB HEMETOLOGY METHOD 04/02/2025 12:33 PM [facility] MCHC 32.3 32.0 - 37.0 g/dL LAB HEMETOLOGY METHOD 04/02/2025 12:33 PM [facility] RDW 13.7 11.0 - 15.0 % LAB HEMETOLOGY METHOD 04/02/2025 12:33 PM [facility] Platelets 154 130 - 400 K/mcL LAB HEMETOLOGY METHOD 04/02/2025 12:33 PM [facility] MPV 11.2(H) 7.0 - 11.0 FL LAB HEMETOLOGY METHOD 04/02/2025 12:33 PM [facility] NRBC 0.0 <1.0 % LAB HEMETOLOGY METHOD 04/02/2025 12:33 PM [facility] NRBC Absolute 0.00 <0.10 K/mcL LAB HEMETOLOGY METHOD 04/02/2025 12:33 PM [facility] Neutrophils Relative 63.9 % LAB HEMETOLOGY METHOD 04/02/2025 12:33 PM [facility] Lymphocytes Relative 26.4 % LAB HEMETOLOGY METHOD 04/02/2025 12:33 PM [facility] Monocytes Relative 8.4 % LAB HEMETOLOGY METHOD 04/02/2025 12:33 PM [facility] Eosinophils Relative 0.8 % LAB HEMETOLOGY METHOD 04/02/2025 12:33 PM [facility] Basophils Relative 0.3 % LAB HEMETOLOGY METHOD 04/02/2025 12:33 PM EST [facility] Immature Granulocytes Relative 0.2 % LAB HEMETOLOGY METHOD 04/02/2025 12:33 PM [facility] Neutrophils Absolute 3.82 1.50 - 7.00 K/mcL LAB HEMETOLOGY METHOD 04/02/2025 12:33 PM EST [facility] Lymphocytes Absolute 1.58 1.00 - 5.00 K/mcL LAB HEMETOLOGY METHOD 04/02/2025 12:33 PM [facility] Monocytes Absolute 0.50 0.20 - 1.00 K/mcL LAB HEMETOLOGY METHOD 04/02/2025 12:33 PM [facility] Eosinophils Absolute 0.05 0.00 - 0.50 K/mcL LAB HEMETOLOGY METHOD 04/02/2025 12:33 PM EST [facility] Basophils Absolute 0.02 0.00 - 0.20 K/mcL LAB HEMETOLOGY METHOD 04/02/2025 12:33 PM [facility] Immature Granulocytes Absolute 0.01 0.00 - 0.03 K/mcL LAB HEMETOLOGY METHOD 04/02/2025 12:33 PM EST [facility] Blood Venous blood specimen / Unknown Venipuncture / Unknown 04/02/2025 12:12 PM EST 04/02/2025 12:25 PM EST us Elio Taveras MD LAB BLOOD ORDERABLES Final Res ult [facility] [address] [place] [address], * Vitamin D 25 hydroxy (04/02/2025 12:12 PM EST) Vit D, 25-Hydroxy 50.1 30.0 - 80.0 ng/mL LAB CHEMISTRY METHOD 04/02/2025 2:30 PM EST [facility] Blood Venous blood specimen / Unknown Venipuncture / Unknown 04/02/2025 12:12 PM EST 04/02/2025 12:25 PM EST us Elio Taveras MD LAB BLOOD ORDERABLES Final Res ult Performing Organization Address City/[facility]/ZIP Co de Phone Number [facility] [address] [place] [address], [place] [phone] * Sedimentation rate (04/02/2025 12:12 PM EST) Pathologist [facility] Sed Rate 11 0 - 30 mm/hr LAB HEMETOLOGY METHOD 04/02/2025 12:33 PM EST [facility] Blood Venous blood specimen / Unknown Venipuncture / Unknown 04/02/2025 12:12 PM EST 04/02/2025 12:25 PM EST Elio Taveras MD LAB BLOOD ORDERABLES Final Res ult Performing Organization Address [facility] Co de Phone Number [facility] [address] [place] [address], [place] [phone] * Uric acid (04/02/2025 12:12 PM EST) Pathologist [facility] Uric Acid 4.4 3.1 - 7.8 mg/dL LAB CHEMISTRY METHOD 04/02/2025 1:46 PM EST [facility] Blood Venous blood specimen / Unknown Venipuncture / Unknown 04/02/2025 12:12 PM EST 04/02/2025 12:25 PM EST us Elio Taveras MD LAB BLOOD ORDERABLES Final Res ult Performing Organization Address City/[facility]/ZIP Co de Phone Number [facility] [address] [place] [address], [place] [phone] * Thyroid stimulating hormone (04/02/2025 12:12 PM EST) TSH 2.30 0.40 - 4.00 mcIU/mL LAB CHEMISTRY METHOD 04/02/2025 2:30 PM EST [facility] Blood Venous blood specimen / Unknown Venipuncture / Unknown 04/02/2025 12:12 PM EST 04/02/2025 12:25 PM EST us Elio Taveras MD LAB BLOOD ORDERABLES Final Res ult [facility] [address] [place] [address], [place] [phone] * Hemoglobin A1c (04/02/2025 12:12 PM EST) Hemoglobin A1C 5.9 <6.5 % LAB CHEMISTRY METHOD 04/02/2025 1:46 PM EST [facility] Mean Bld Glu Estim. 123 mg/dL LAB CHEMISTRY METHOD 04/02/2025 1:46 PM EST [facility] Blood Venous blood specimen / Unknown Venipuncture / Unknown 04/02/2025 12:12 PM EST 04/02/2025 12:25 PM EST Elio Taveras MD LAB BLOOD ORDERABLES Final Res ult [facility] [address] [place] [address], [place] [phone] * Comprehensive metabolic panel (04/02/2025 12:12 PM EST) Only the most recent of2 resultswithin the time period is included. Pathologist [facility] Sodium 144 133 - 145 mmol/L LAB CHEMISTRY METHOD 04/02/2025 1:51 PM EST [facility] Potassium 4.6 3.5 - 5.5 mmol/L LAB CHEMISTRY METHOD 04/02/2025 1:51 PM [facility] Chloride 106 96 - 110 mmol/L LAB CHEMISTRY METHOD 04/02/2025 1:51 PM [facility] CO2 31 21 - 32 mmol/L LAB CHEMISTRY METHOD 04/02/2025 1:51 PM [facility] Anion Gap 7 3 - 11 LAB CHEMISTRY METHOD 04/02/2025 1:51 PM [facility] Glucose 89 70 - 100 mg/dL LAB CHEMISTRY METHOD 04/02/2025 1:51 PM [facility] BUN 10 5 - 25 mg/dL LAB CHEMISTRY METHOD 04/02/2025 1:51 PM [facility] Creatinine 0.91 0.50 - 1.10 mg/dL LAB CHEMISTRY METHOD 04/02/2025 1:51 PM [facility] eGFR 75 >=60 mL/min/1. 73m2 LAB CHEMISTRY METHOD 04/02/2025 1:51 PM [facility] Comment:Calculation based on the Chronic Kidney Disease Epidemiology Collaboration (CKD-EPI) equation refit without adjustment for race. BUN/Creatinine Ratio 11.0 LAB CHEMISTRY METHOD 04/02/2025 1:51 PM [facility] Calcium 9.1 8.5 - 10.5 mg/dL LAB CHEMISTRY METHOD 04/02/2025 1:51 PM [facility] AST (SGOT) 30 10 - 42 unit/L LAB CHEMISTRY METHOD 04/02/2025 1:51 PM [facility] ALT (SGPT) 36 10 - 60 unit/L LAB CHEMISTRY METHOD 04/02/2025 1:51 PM [facility] Alkaline Phosphatase 98 42 - 121 unit/L LAB CHEMISTRY METHOD 04/02/2025 1:51 PM [facility] Total Protein 7.1 6.0 - 8.0 g/dL LAB CHEMISTRY METHOD 04/02/2025 1:51 PM [facility] Albumin 3.8 3.2 - 5.0 g/dL LAB CHEMISTRY METHOD 04/02/2025 1:51 PM EST [facility] Total Bilirubin 1.4 0.0 - 1.4 mg/dL LAB CHEMISTRY METHOD 04/02/2025 1:51 PM EST [facility] Blood Venous blood specimen / Unknown Venipuncture / Unknown 04/02/2025 12:12 PM EST 04/02/2025 12:25 PM EST Elio Taveras MD LAB BLOOD ORDERABLES Final Res ult [facility] [address] [place] [address], [place] [phone] * ECG-Annotated (04/02/2025) us Provider Onbase ECG [...] Signed Date: 04/02/2025 09:15 ET Workstation ID: [id number] Transcribed By: Self Edit Transcribed Date: 04/02/2025 [...] Signed Date: 04/02/2025 09:15 ET Workstation ID: [id number] Transcribed By: Self Edit Transcribed Date: 04/02/2025 09:14 ET Gt Abad MD IMG XR PROCEDURES Final Res ult * [id number], RSV, Influenza A and B qualitative RT-PCR (04/01/2025 9:59 PM EST) Influenza A PCR Not Detected Not Detected LAB MICROBIOLOGY METHOD 04/01/2025 10:46 PM EST [facility] Influenza B PCR Not Detected Not Detected LAB MICROBIOLOGY METHOD 04/01/2025 10:46 PM EST [facility] RSV PCR Not Detected Not Detected LAB MICROBIOLOGY METHOD 04/01/2025 10:46 PM EST [facility] SARS COV-2 Not Detected Not Detected LAB MICROBIOLOGY METHOD 04/01/2025 10:46 PM EST [facility] Swab Both anterior nares / Unknown Non-blood Collection / Unknown 04/01/2025 9:59 PM EST 04/01/2025 10:05 PM EST Gt Abad MD LAB MICROBIOLOGY - GENERAL ORDERABLES Final Result [facility] [address] [place] [address], [place] [phone] * D-dimer, quantitative (04/01/2025 9:47 PM EST) [facility] D-Dimer, Quant (D-DU) <150 <=230 ng/mL DDU LAB COAGULATION METHOD 04/01/2025 10:25 PM EST [facility] Blood Venous blood specimen / Unknown Venipuncture / Unknown 04/01/2025 9:47 PM EST 04/01/2025 10:05 PM EST [facility] - 04/01/2025 10:25 PM EST D-Dimer <230 ng/mL (D-Dimer units) is the threshold for exclusion of DVT/PE. D-Dimer may be elevated in: Critically ill, severely infected, trauma patients, DIC, acute CVA, acute IA, unstable angina, AF, old age, , and smoking. D-Dimer may be decreased with: Initiation of heparin therapy and oral anticoagulants. Gt Abad MD LAB BLOOD ORDERABLES Final Result [facility] [address] [place] [address], * Troponin I high sensitivity (04/01/2025 6:43 PM EST) [facility] High Sensitivity Troponin I 4 <=54 ng/L LAB CHEMISTRY METHOD 04/01/2025 7:23 PM EST [facility] Blood Venous blood specimen / Unknown Venipuncture / Unknown 04/01/2025 6:43 PM EST 04/01/2025 6:56 PM EST [facility] - 04/01/2025 7:23 PM EST High levels of biotin in samples may falsely decrease hsTroponin values. Use caution when interpreting hsTroponin results in patients taking biotin who exhibit renal impairment (eGFR <60) or in patients taking more than 20 mg/day of biotin. Gt Abad MD LAB BLOOD ORDERABLES Final Result Performing Organization Address [facility] de Phone Number [facility] [address] [place] [address], * B-type natriuretic peptide (04/01/2025 6:43 PM EST) [facility] BNP 17 <=100 pcg/mL LAB CHEMISTRY METHOD 04/01/2025 7:35 PM EST [facility] Blood Venous blood specimen / Unknown Venipuncture / Unknown 04/01/2025 6:43 PM EST 04/01/2025 6:56 PM EST Gt Abad MD LAB BLOOD ORDERABLES Final Result Performing Organization Address [facility] de Phone Number [facility] [address] [place] [address], * Magnesium (04/01/2025 6:43 PM EST) [facility] Magnesium 2.4 1.9 - 2.6 mg/dL LAB CHEMISTRY METHOD 04/01/2025 7:24 PM EST [facility] Blood Venous blood specimen / Unknown Venipuncture / Unknown 04/01/2025 6:43 PM EST 04/01/2025 6:56 PM EST Gt Abad MD LAB BLOOD ORDERABLES Final Result Performing Organization Address [facility]/ZIP Co de Phone Number [facility] [address] [place] [address], [place] [phone] * (ABNORMAL) Lipase (04/01/2025 6:43 PM EST) [facility] Lipase 85(H) 13 - 75 unit/L LAB CHEMISTRY METHOD 04/01/2025 7:24 PM EST [facility] Blood Venous blood specimen / Unknown Venipuncture / Unknown 04/01/2025 6:43 PM EST 04/01/2025 6:56 PM EST Gt Abad MD LAB BLOOD ORDERABLES Final Result [facility] PERD[facility] [place] ([facility]) [facility] [address] [place] [address], [place] [phone] * ECG 12 lead (04/01/2025 6:34 PM EST) Ventricular Rate ECG 59 BPM [facility] Atrial Rate 59 BPM GEM[facility] P-R Interval 130 ms GEMUSE QRS Duration 76 ms GEMUSE Q-T Interval 422 ms GEMUSE QTc 417 ms GEMUSE P Wave Morrice 57 degrees GEMUSE R Morrice 74 degrees GEMUSE T [place] 54 degrees GEMUSE ECG Interpretation Sinus bradycardia Otherwise normal ECG When compared with ECG of 18-JUN-2022 20:38, No significant change was found Confirmed by ISAAC DICKINSON ([id number]) on 04/04/2025 7:58:36 AM GEM[facility] 04/01/2025 6:34 PM EST 04/04/2025 7:58 AM EST Gt Abad MD ECG ORDERABLES Final Resul t Performing Organization Address City/[facility] Co de Phone Number [facility] from Last 3 Months Insurance [facility] Care Teams Sas Clinical Programmer Relationship Specialty Start Date End Date Elio Taveras MD [address] [place] [address] PCP - General Internal Medicine 04/21/24
[2025-05-21 19:04] LABS: Class Alternaria alternata 0; Class Aspergillus fumigatus 0; Class Bermuda Grass 0; Class Birch 0; Class Cat Dander 0; Class Cladosporium herbarum 0; Class Cockroach 0; Class Common Ragweed 0; Class Cottonwood 0; Class Derm. pterony 0; Class Dermatophagoides farinae 0; Class Dog Dander 0; Class Elm 0; Class Maple Box Elder 0; Class Mountain Cedar 0; Class Mouse Urine Protein 1; Class Mugwort 0; Class Oak 0; Class Penicillium crysogenum 0; Class Rough Pigweed 0; Class Sheep Sorrel 0; Class Sycamore 0; Class Timothy Grass 0; Class Walnut Tree 0; Class White Ash 0; Class White Mulberry 0; D002 - IgE D farinae <0.10 kU/L; E001 - IgE Cat Dander <0.10 kU/L; E005 - IgE Dog Dander <0.10 kU/L; G006 - IgE Timothy Grass <0.10 kU/L; I006-IgE Cockroach, German <0.10 kU/L; M002 - IgE Cladosporium herbar <0.10 kU/L; M003 - IgE Aspergillus fumigat <0.10 kU/L; M006 - IgE Alternaria alternat <0.10 kU/L; T001 IgE Maple/Box Elder <0.10 kU/L; T006 - IgE Cedar, Mountain <0.10 kU/L; T007 - IgE Oak, White <0.10 kU/L; T008 IgE Elm, American <0.10 kU/L; T010 - IgE Walnut <0.10 kU/L; T011 - IgE Maple Leaf Sycamore <0.10 kU/L; T014 - IgE Cottonwood <0.10 kU/L; T015 - IgE Ash, White <0.10 kU/L; T070 - IgE White Mulberry <0.10 kU/L; W001 - IgE Ragweed, Short <0.10 kU/L; W006 - IgE Mugwort <0.10 kU/L; W014 IgE Pigweed, Common <0.10 kU/L; W018 IgE Sheep Sorrel <0.10 kU/L
== END 2025-05-19 13:43 | disposition home or self-care (01) ==
LOC: HO.LAB 13:42
PROVIDERS: PCP Internal Medicine; Referring Provider Nurse Practitioner Family; Visit Provider Internal Medicine Pulmonary Disease
DX: J45.909 Unspecified asthma, uncomplicated (principal); Z91.09 Other allergy status, other than to drugs and biological substances; Z79.899 Other long term (current) drug therapy
CPT/HCPCS: 36415; 82785; 85025; 86003

== ENCOUNTER 2025-05-19 13:42 | Outpatient (AMB) | payer OTHER, SELFPAY ==
--- NOTE | 2025-05-19 13:47 | A.OFFVIS_ITS ---
Vital Signs 05/19/25 13:48 Height 5 ft 4 in Weight 130 lb BMI 22.3 BP 98/62 Blood Pressure Location Lt brachial Position Sitting Pulse 73 Pulse Source Pulse Oximeter Pulse Oximetry (%) 99 Oxygen Delivery Method Room Air Intake Visit Reasons: Asthma Allergies aspirin (Aspirin) Allergy (Mild, Verified 05/19/25 13:50) UPSET STOMACH, RASH HPI HPI Asthma: Details: 54-year-old lady, nonsmoker, with asthma as a child, that got better in her teenage years, now referred for pulmonary evaluation secondary to episodes of chest tightness and dyspnea ongoing for at least several months. Patient also complains of left-sided thoracic back pain that is worse with movement. She does have several cats. She denies exposure to industrial dusts. Patient does have environmental allergies. She does not know her family medical history. 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 [employer] Sexual orientation: Straight/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 Gender identity: Female Review of Systems Card Denies chest pain, Reports dyspnea on exertion, Denies orthopnea and Denies paroxysmal nocturnal dyspnea Resp Reports cough, Denies excessive phlegm production, Reports dyspnea on exertion and Reports wheezing Aller/Immun Reports wheezing Physical Exam Vital Signs: Last Vital Signs Pulse 73 05/19/25 13:48 BP 98/62 05/19/25 13:48 Pulse Ox 99 05/19/25 13:48 Oxygen Delivery Method Room Air 05/19/25 13:48 BMI result Body Mass Index 22.3 Const General: no acute distress and alert Nutritional Appearance: not obese Orientation/consciousness: Other orientation findings ( oriented) HEENT Head: Yes atraumatic Eyes General: appearance normal, both eyes and all related structures Sclerae: sclerae normal EOM: EOMs intact bilaterally Neck Neck: Yes supple Lymphatic: no lymphadenopathy noted Resp Effort & Inspection: normal respiratory effort and no use of accessory muscles Auscultation: clear to auscultation bilaterally Cardio Rate: regular rate Rhythm: regular rhythm Heart sounds: no gallops, no murmurs and no rubs Skin General skin exam: other ( warm) Extrem General: No clubbing, No cyanosis and No edema Assessment & Plan Assessment & Plan (1) Asthma: Code(s): J45.909 - Unspecified asthma, uncomplicated Category: Medical Plan: Likely asthma of unclear severity. Will obtain full PFT. Will continue on albuterol MDI at this time. (2) Environmental allergies: Code(s): Z91.09 - Other allergy status, other than to drugs and biological substances Category: Medical Plan: Will obtain IgE level, CBC with differential, and RAST panel for further evaluation. Orders: Orders Resp Allergy Profile Region I Today Z91.09 - Other allergy status, other than to drugs and biological substances Complete Blood Count Auto Diff Today Z91.09 - Other allergy status, other than to drugs and biological substances PFT pulmonary function test Today J45.909 - Unspecified asthma, uncomplicated, Z91.09 - Other allergy status, other than to drugs and biological substances Coding Level of Care Code New Pt Level 4 (61110) Diagnoses Asthma J45.909 Environmental allergies Z91.09
[2025-05-19 13:48] VITALS: BP 98/62; PULSE 73; O2SAT 99; BMI 22.3
--- OUTSIDE RECORDS SUMMARY | 2025-05-19 15:01 | XMS_ITS | Clinical Summary ---
Author Organization [facility] Address [address] [place] [address] Care Team Providers Care Operations Analyst Name Role Phone Elio Taveras MD Primary Care Provider [phone] Allergies Active Allergy Reactions Criticality Noted Date [...] Influenza Vaccine 12/18/2024 COVID-19 Vaccine (1 - 2024- season) 2025 RSV Vaccine 50 years and old er and Patients (1 - 1-dose 75+ series) 2044 Insurance [employer] Care Teams Operations Analyst Relationship Specialty Start Date End Date Elio Taveras MD [address] [address] PCP - General 06/26/22
== END 2025-05-19 14:12 | disposition home or self-care (01) ==
LOC: HO.HPS 13:43
PROVIDERS: PCP Internal Medicine; Referring Provider Nurse Practitioner Family; Visit Provider Internal Medicine Pulmonary Disease
DX: J45.909 Unspecified asthma, uncomplicated (principal); Z91.09 Other allergy status, other than to drugs and biological substances
CPT/HCPCS: 99204